=== PATIENT | male | born 1930 | race Caucasian/White ===

== ENCOUNTER → 2016-10-03 12:12 | Outpatient (CLI) | payer MEDICARE, OTHER ==
[2016-06-07 10:33] VITALS: BMI 25.4
[~2016-10-03 12:12] MED LIST: ADVAIR HFA 45/212 GM INH; ALTACE2.5 MG PO; ASPIRIN81 MG PO; ATROVENT 0.02%2.5 ML UPD; DULERA 100 MCG8.8 GM INH; FLUTICASONE PRO16 GM NS; IPRAT-ALBUT 0.5-3 ML UPD; LIPITOR10 MG PO; MEDROL DOSE PACK4 MG PO; MONODOX100 MG PO; PLAVIX75 MG PO; PREDNISONE10 MG PO; PREDNISONE5 MG PO; REFRESH TEARS15 ML EACH EYE; SYNTHROID50 MCG PO; VENTOLIN HFA18 GM INH
== END | disposition home or self-care (01) ==
LOC: D.RAD 12:12
DX: R13.12 Dysphagia, oropharyngeal phase (principal)

== ENCOUNTER 2018-12-03 08:12 | Emergency (ER) | payer MEDICARE, OTHER ==
[~2018-12-03] VITALS: Ht 167.6 cm; Wt 63.6 kg
[2018-12-03 08:16] VITALS: Ht 167.6 cm; Wt 63.6 kg
[2018-12-03 09:03] VITALS: BP 124/68
== END 2018-12-03 09:04 | disposition home or self-care (01) ==
LOC: D.ER 08:12
DX: S51.012A Laceration without foreign body of left elbow, initial encounter (principal); W26.8XXA Contact with other sharp object(s), not elsewhere classified, initial encounter; Y93.89 Activity, other specified; Y92.019 Unspecified place in single-family (private) house as the place of occurrence of the external cause

== ENCOUNTER 2018-12-12 09:43 | Outpatient (CLI) | payer MEDICARE, OTHER ==
[~2018-12-12] VITALS: Ht 167.6 cm; Wt 71.4 kg
--- NOTE | ~2018-12-12 | HEMODYNAMI ---
PATIENT:FRANCISCA GRISSOM III MEDICAL RECORD: [id number] : 28 LOCATION:[facility] ADMISSION DATE: 12/12/18 Generatedon:12/12/201812:51 Patient name: FRANCISCA GRISSOM Patient #: [id number] SSN: : 1930 Date of study: 12/12/2018 Page: Of Hemodynamic Procedure Report Patient Data Patient Demographics Procedure consent was obtained First Name: FRANCISCA Gender: Male Last Name: PRAVEENA Suffix: EMELI [facility] Initial: PENNY : 1930 Patient #: [id number] Age: 88 year(s) Race: Additional ID: [id number] Contact details Address: [address] [place] [address] State: [place] City: [place] Zip code: [address] Past Medical History Allergies: No known allergies Admission Admission Data Admission Date: 12/12/2018 Admission Time: 9:43 Height (in.): 66 BSA: 1.8 (m2) Height (cm.): 167.64 BMI: 25.34 (kg/m2) Weight (lbs.): 157 Weight (kg.): 71.21 Lab Results Lab Result Date: 12/12/2018 Lab Result Time: 0:00 Biochemistry Name Units Result Min Max BUN mg/dl 26 --(----)-* 7 18 Creatinine mg/dl 1.4 --(----)*- 0.6 1.3 CBC Name Units Result Min Max Hemoglobin g/dl 12.9 -*(----)-- 13.5 17.5 Procedure Procedure Types Cath Procedure Diagnostic Procedure C LH w/Coronaries Sedation Charges Moderate Sedation up to 15 minutes PCI Procedure AMI/SVG/CHEMICAL RESEARCH WORKER PTCA or Stent SVG-BMS/PHILIP Initial Procedure Description Procedure Date Procedure Date: 12/12/2018 Procedure Start Time: 12:29 Procedure End Time: 12:47 Procedure Staff Name Function Uvaldo Panchal MD Performing Physician Edna Garner RT Monitor Allen Carey RT Scrub Sirena Olsen RN Nurse Carlos Cervantes RN Hosted Services Analyst Procedure Data Cath Procedure Fluoroscopy Diagnostic fluoroscopy Total fluoroscopy Time: 6.3 time: 6.3 min min Diagnostic fluoroscopy Total fluoroscopy dose: dose: 330.28 mGy 330.28 mGy Contrast Material Contrast Material Type Amount (ml) Isovue 300 126 Entry Location Entry Primary Successful Side Size Upsize Upsize Entry Closure Succes sful Closure Location (Fr) 1 (Fr) 2 (Fr) Remarks Device Remarks Femoral Right 5 Fr 6 Fr Exoseal artery Short Estimated blood loss: 10 ml Diagnostic catheters Device Type Used For End Catheter Placement MULTIPACK Pigtail 5 Fr Procedure catheter MULTIPACK JL 4.0 5Fr Procedure catheter MULTIPACK 3DRC 5Fr Procedure catheter Procedure Complications No complications Procedure Medications Medication Administration Route Dosage 0.9% NaCl I.V. 100 ml/hr Oxygen etCO2 Nasal cannula 2 l/min Lidocaine 2% added to field 20 Heparin Flush Bag added to field 2 bags (1000units/500ml NS) Versed I.V. 2 mg Fentanyl I.V. 25 mcg Fentanyl I.V. 50 mcg Versed I.V. 1 mg Heparin Bolus I.V. 4000 units Hemodynamics Rest BSA: 1.8 (m2) O2 Consumption: Estimated: 191.22 (ml/min) O2 Consumption indexed: Estimated:106.23 (ml/min/m) Heart Rate: 52 (bpm) Snapshots Pre Cath Intra NCS Post Cath Vital Signs Time Heart Resp SPO2 etCO2 NIBP (mmHg) Rhythm Pain Sedation Rate (ipm) (%) (mmHg) Status Level (bpm) 12:18:20 63 17 98 0 166/77(97) NSR 0 (11) 10(A) , No pain 12:22:38 61 15 97 0 148/78(93) NSR 0 (11) 10(A) , No pain 12:27:00 63 12 95 0 131/69(108) NSR 0 (11) 10(A) , No pain 12:31:16 62 13 97 0 144/71(111) NSR 0 (11) 10(A) , No pain 12:36:19 59 11 96 0 136/72(106) NSR 0 (11) 9(A) , No pain 12:40:31 65 12 96 0 122/68(105) NSR 0 (11) 9(A) , No pain 12:44:41 72 12 97 0 136/75(116) NSR 0 (11) 10(A) , No pain Medications Time Medication Route Dose Verified Delivered Reason Notes E ffectiveness by by 12:17:10 0.9% NaCl I.V. 100 Uvaldo Sirena used for ml/hr Ansley Olsen gamma operator 12:17:17 Oxygen etCO2 2 Uvaldo Sirena used for Nasal l/min Ansley Olsen procedure cannula RN 12:17:23 Lidocaine 2% added 20ml Uvaldo Uvaldo for local to vial Ansley Panchal MD anesthetic field 12:17:27 Heparin Flush added 2 Uvaldo Uvaldo used for Bag to bags Ansley Panchal MD procedure (1000units/500ml field NS) 12:26:02 Fentanyl I.V. 50 Uvaldo Sirena for mcg Ansley Olsen sedation RN 12:26:55 Versed I.V. 2 mg Uvaldo Sirena for Ansley Olsen sedation RN 12:31:02 Fentanyl I.V. 25 Uvaldo Sirena for mcg Ansley Olsen sedation RN 12:31:37 Versed I.V. 1 mg Uvaldo Sirena for Ansley Olsen sedation RN 12:36:49 Heparin Bolus I.V. 4000 Uvaldo Sirena for verified units Ansley Olsen sedation with Dr. JERSON Panchal Procedure Log Time Note 11:58:06 Signed procedure consent form obtained from patient. 11:58:07 Diagnostic Cath status Elective 11:58:08 Time tracking: Regular hours (M-F 7:00 - 5:00) 11:58:12 Plan of Care:Hemodynamics will remain stable., Cardiac rhythm will remain stable., Comfort level will be maintained., Respiratory function will remain adequate., Patient/ family verbilizes understanding of procedure., Procedure tolerated without complication., Recovers from procedure without complications.. 11:58:15 Carlos Cervantes RN sent for patient. Start room use. 12:00:48 Patient Height : 66 inches 12:00:50 Patient Weight : 157 lbs 12:00:57 Patient allergic to No known allergies 12:03:06 Lab Result : BUN 26 mg/dl 12:03:06 Lab Result : Hemoglobin 12.9 g/dl 12:03:06 Lab Result : Creatinine 1.4 mg/dl 12:11:17 Patient received from Pre/Post Procedure Room to CCL 3 Alert and oriented. Tansferred to table in Supine position. 12:11:19 Warm blankets applied, and keith hugger turned on for patient comfort. 12:11:19 Correct patient and procedure confirmed by team. 12:11:20 ECG and BP/O2 sat monitors applied to patient. 12:17:00 Vital chart was started 12:17:10 0.9% NaCl 100 ml/hr I.V. was administered by Sirena Olsen RN; used for procedure; 12:17:17 Oxygen 2 l/min etCO2 Nasal cannula was administered by Sirena Olsen RN; used for procedure; 12:17:23 Lidocaine 2% 20ml vial added to field was administered by Uvaldo Panchal MD; for local anesthetic; 12:17:27 Heparin Flush Bag (1000units/500ml NS) 2 bags added to field was administered by Uvaldo Panchal MD; used for procedure; 12:22:48 Baseline sample Acquired. 12:22:52 Rhythm: sinus rhythm 12:22:54 Full Disclosure recording started 12:23:03 H&P Date Dictated: 12/11/2018 Within 30 days and on chart., H&P Addendum completed by physician on day of procedure. (MUST COMPLETE FOR ALL OUTPATIENTS). 12:23:14 Pre-procedure instructions explained to patient. 12:23:15 Pre-op teaching completed and patient verbalized understanding. 12:23:16 Family in patients room. 12:23:17 Patient NPO since Midnight. 12:23:19 Is patient on blood thinner?Yes 12:23:23 ACC The patient was administered the following blood thiners within the last 24 hours: ACCPlavix 12:23:25 Patient diabetic? No. 12:23:29 Previous problem with sedation/anesthesia? No ? 12:23:30 Snore? Yes 12:23:31 Sleep apnea? No 12:23:34 Deviated septum? No 12:23:35 Opens mouth fully? Yes 12:23:36 Sticks out tongue? Yes 12:23:40 Airway obstruction? No ? 12:23:43 Dentures? No ? 12:23:46 Pre procedure: right dorsailis pedis pulse 1+ Palpable, but thready & weak; easily obliterated 12:23:53 Patient pain scale 0/10 ?. 12:23:59 IV patent on arrival in right forearm with 0.9% NaCl at [facility]. 12:24:01 Lab results completed and on chart. 12:24:05 Right groin area was prepped with chlora-prep and draped in sterile fashion 12:24:06 Alarms reviewed by R. N. 12:24:06 Sharps counted by scrub and verified by R.N. 12:24:08 Use device set Femoral Dx 12:24:09 ACIST Syringe (93185) opened to sterile field. 12:24:10 Bag Decanter (2002S) opened to sterile field. 12:24:11 ACIST Hand Control (89335) opened to sterile field. 12:24:11 ACIST Manifold (58011) opened to sterile field. 12:24:12 Tegaderm 4 x 4 (1626W) opened to sterile field. 12:24:14 Medline Cath Pack ([id number]) opened to sterile field. 12:24:15 DIAGNOSTIC WIRE .035 260cm J wire (663473) opened to sterile field. 12:24:16 DIAGNOSTIC Multipack 5Fr catheter set (JJ9510) opened to sterile field. 12:24:17 SHEATH 5FR [place] (HAJ796) opened to sterile field. 12:25:53 --------ALL STOP TIME OUT------ 12::53 Final Timeout: patient, procedure, and site verified with staff and physician. All members of the team are in agreement. 12:25:55 Right groin site verified by team. 12:25:58 Maximum allowable Isovue 300 dose 300ml. Physician notified. (300ml for normal creatinines. For patients with creatinine of 1.7 or higher multiply weight(kg) x 5 divided by creatinine.) 12:26:02 Fentanyl 50 mcg I.V. was administered by Sirena Olsen RN; for sedation; 12:26:02 Fire Safety Assessment: A--An alcohol-based skin anteseptic being used preoperatively., C--Open oxygen or nitrous oxide is being used., D--An ESU, laser, or fiber-optic light is being used. 12:26:04 Physical assessment completed. ASA score P 2 - A patient with mild systemic disease as per Uvaldo Panchal MD. 12::06 Sedation plan: IV Moderate Sedation Medication:Versed, Fentanyl 12::55 Versed 2 mg I.V. was administered by Sirena Olsen RN; for sedation; 12:28:47 Zero performed for pressure channel P1 12::51 Procedure started. 12::03 Local anesthetic to right femoral artery with Lidocaine 2% by Uvaldo Panchal MD.INITIAL ACCESS ONLY 12::39 A 5 Fr sheath was inserted into the Right Femoral artery 12::55 A MULTIPACK Pigtail 5 Fr catheter was advanced over the wire and used for Procedure. 12:30:10 LV gram done using SMYTH 12::13 Injector settings: Ml/sec: 10, Volume: 20, 12::39 EF : 50 % 12:30:42 Catheter removed. 12:31:02 Fentanyl 25 mcg I.V. was administered by Sirena Olsen RN; for sedation; 12::06 A MULTIPACK JL 4.0 5Fr catheter was advanced over the wire and used for Procedure. 12:31:37 Versed 1 mg I.V. was administered by Sirena Olsen RN; for sedation; 12:31:50 LCA angiography performed. 12:32:12 Catheter exchanged over wire. 12:32:15 A MULTIPACK 3DRC 5Fr catheter was advanced over the wire and used for Procedure. 12:33:15 CHOPRA to LAD angiography performed. 12:33:44 RCA angiography performed. 12:34:00 Catheter exchanged over wire. 12:34:51 GUIDE 6FR AR 2.0 SH catheter ([id number]) opened to sterile field. 12:34:51 SHEATH 6FR [place] (NDP891) opened to sterile field. 12:34:52 INFLATOR Merit BasixCompak (EC7575) opened to sterile field. 12:34:52 CHOICE PT Extra Support 182cm wire ([id number]) opened to sterile field. 12:35:10 Sheath upsized to a 6 Fr Short. 12:35:31 6 Fr AR 2 SH guide catheter was inserted over the wire 12:36:49 Heparin Bolus 4000 units I.V. was administered by Sirena Olsen RN; for sedation; verified with Dr. Panchal 12:37:24 SVG to Circ angiography performed. 12:38:38 CHOICE ES 182 wire advanced. 12:38:47 Wire advanced across lesion. 12:40:02 Place stent Inflation Number: 1 A RAZA RX 3.0 x 22 stent ([id number]) was prepped and advanced across the Mid RCA. The stent was deployed at 21 ROXANA for 0:10 (min:sec). 12:40:23 Inflation number: 2 The stent balloon was then re-inflated across the Mid RCA to 21 ROXANA for 0:10 (min:sec). 12:40:25 Stent catheter was removed intact over wire. 12:42:18 Place stent Inflation Number: 1 A RAZA RX 3.5 x 22 stent ([id number]) was prepped and advanced across the Prox RCA. The stent was deployed at 17 ROXANA for 0:10 (min:sec). 12:42:46 Inflation number: 2 The stent balloon was then re-inflated across the Prox RCA to 23 ROXANA for 0:10 (min:sec). 12:42:59 Stent catheter was removed intact over wire. 12:42:59 Wire removed. 12:43:00 Guide catheter removed. 12:43:11 EXOSEAL 6Fr (EX600) opened to sterile field. 12:43:32 Sheath removed intact; hemostasis achieved with Exoseal to the Right Femoral artery. 12:44:07 Procedure ended.(Physican Out) 12:45:41 Fluoroscopy time 06.30 minutes. 12:45:48 Flurop Dose total: 330.28 12:45:48 Fluoroscopy dose: 330.28 mGy 12:45:54 Contrast amount:Isovue 300 126ml. 12:45:57 Post-op/insertion site Right Femoral artery dressed using a 4 x 4 and Tegaderm. 12:46:01 Post-procedure physical assessment completed. ASA score P 2 - A patient with mild systemic disease as per Uvaldo Panchal MD. 12:46:04 Post procedure rhythm: sinus rhythm 12:46:10 Estimated blood loss: 10 ml 12:46:12 Post procedure instruction explained to patient.Patient verbalizes understanding. 12:46:12 Patient needs reinforcement of post procedure teaching. 12:46:39 Procedure type changed to Cath procedure, Diagnostic procedure, LHC, LHC w/Coronaries, Sedation Charges, Moderate Sedation up to 15 minutes, PCI procedure, AMI/SVG/CHEMICAL RESEARCH WORKER PTCA or Stent, SVG-BMS/PHILIP Initial 12:47:39 Procedure and supply charges have been captured, reviewed, submitted and are correct. 12:47:42 Procedure Complication : No complications 12:47:44 Vital chart was stopped 12:47:44 See physician's report for complete and final results. 12:47:48 Report given to Pre/Post Procedure Room. 12:47:51 Patient transfered to Pre/Post Procedure Room with Bed. 12:47:53 Procedure ended. 12:47:53 Full Disclosure recording stopped 12:47:58 End room use (Document Last) Intervention Summary Intervention Notes Time ActionType Lesion and Equipment Used Action# Pressure Duration Attributes 12:40:02 Place stent Mid RCA RAZA RX 3.0 x 1 21 00:10 22 stent ([id number]) 12:40:23 Reinflate Mid RCA RAZA RX 3.0 x 2 21 00:10 stent 22 stent balloon ([id number]) 12:42:18 Place stent Prox RCA RAZA RX 3.5 x 1 17 00:10 22 stent ([id number]) 12:42:46 Reinflate Prox RCA RAZA RX 3.5 x 2 23 00:10 stent 22 stent balloon ([id number]) Device Usage Item Name Manufacture Quantity Catalog Number Hospital Part Current M inimal Lot# / Charge Number Stock Stock Serial# Code ACIST Syringe Acist 1 55279 778186 764088 654344 2 0 (56836) Medical Systems Inc Bag Decanter Microtek 1 2001S 504010 83861 107043 5 (2001S) Medical Inc. ACIST Hand Acist 1 82532 617428 628265 645761 5 Control Medical (84635) Systems Inc ACIST Manifold Acist 1 49471 828518 432982 591462 5 (30583) Medical Systems Inc Tegaderm 4 x 4 3M 1 1626W 846438 251346 496037 5 (1626W) Medline Cath Medline 1 [id number] 800224 62026 280270 5 Pack ([id number]) DIAGNOSTIC St Yoni 1 478411 691124 334564 343177 3 0 WIRE .035 260cm J wire (537513) DIAGNOSTIC Cardinal 1 BL3385 434023 06414 644487 3 0 Multipack 5Fr Health catheter set (BE1723) SHEATH 5FR Terumo 1 YYG116 937087 889239 464485 5 [place] (EWT379) MULTIPACK Cardinal 1 865551 5 Pigtail 5 Fr Health catheter MULTIPACK JL Cardinal 1 433343 5 4.0 5Fr Health catheter MULTIPACK 3DRC Cardinal 1 302214 5 5Fr catheter Health GUIDE 6FR AR Medtronic 1 [id number] 708356 41973 333375 1 2.0 SH catheter ([id number]) SHEATH 6FR Terumo 1 VTD362 064799 326876 848599 4 0 [place] (PCA727) INFLATOR Merit Merit 1 MO2152 171965 049465 017796 1 5 Run My ErrandscoRevver (JW3082) CHOICE PT [place] 1 [id number] 797816 710970 460478 5 Extra Support Scientific 182cm wire ([id number]) RAZA RX 3.0 x Medtronic 1 [id number] 645982 7078432 491022 5 [id number] 22 stent ([id number]) RAZA RX 3.5 x Medtronic 1 [id number] 849351 7596433 432485 5 [id number] 22 stent ([id number]) EXOSEAL 6Fr Cardinal 1 EX600 196270 964242 901216 1 0 (EX600) Health Signature Audit [place] Stage Time Signature Unsigned Intra-Procedure 12/12/2018 Edna Garner 12:51:05 PM RT(R) Signatures Monitor : Edna Garner Signature : RT Date : Time : [facility] [address] [place] [address]
[2018-12-12 10:25] VITALS: BP 102/60; Ht 167.6 cm; Wt 71.4 kg
[2018-12-12 10:59] LABS: BASOPHILS 0.3 % (0-2); EOSINOPHILS 1.1 % (0-7); HEMATOCRIT 39.1 % (42.0-54.0); HEMOGLOBIN 12.9 g/dL (13.5-17.5); IMMATURE GRANULOCYTES 0.4 % (0-5); MCH 31.4 pg (26.0-34.0); MCV 95.1 fL (80.0-100.0); MEAN PLATELET VOLUME 10.2 fL (7.4-10.4); NEUTROPHILS 79.2 % (40-80); PLATELET COUNT 143 10x3/uL (130-400); RBC 4.11 10x6/uL (4.20-6.10)
[2018-12-12 11:07] LABS: ANION GAP 13.3 mmol/L (8-16); CALCIUM 8.7 mg/dL (8.5-10.1); CARBON DIOXIDE 27.5 mmol/L (21.0-32.0); CREATININE - SERUM 1.4 mg/dL (0.6-1.3); POTASSIUM - SERUM 3.8 mmol/L (3.5-5.1)
--- NOTE | 2018-12-12 13:20 | NUR ---
PATIENT AWAKE, AT BEDSIDE. VSS ON 2L NC. RIGHT GROIN DRESSING IS CDI,NO S/S OF BLEEDING OR HEMATOMA. NO C/O PAIN, NUMBNESS, OR TINGLING. PATIENT TOLERATING PO FLUIDS, NO N/V.
--- NOTE | 2018-12-12 13:50 | NUR ---
PATIENT INTERMITTENTLY RESTING. VSS ON 2L NC. RIGHT GROIN DRESSING IS CDI, NO S/S OF BLEEDING OR HEMATOMA. NO C/O PAIN, NUMBNESS, OR TINGLING. NO N/V.
--- NOTE | 2018-12-12 14:20 | NUR ---
PATIENT AWAKE, DRINKING WATER. VSS ON 2L NC. RIGHT GROIN DRESSING IS CDI, NO S/S OF BLEEDING OR HEMATOMA. NO C/O PAIN, NUMBNESS, OR TINGLING. AT BEDSIDE.
--- NOTE | 2018-12-12 14:45 | NUR ---
PATIENT AWAKE, VOIDED WITHOUT DIFFICULTY. VSS ON 1L NC. RIGHT GROIN DRESSING IS CDI, NO S/S OF BLEEDING OR HEMATOMA. PATIENT TOLERATING PO FLUIDS, NO N/V. NO C/O PAIN, NUMBNESS, OR TINGLING.
--- NOTE | 2018-12-12 14:52 | NUR ---
RESUMED CARE OF PATIENT AT THIS TIME.PATIENT DENIED PAIN OR NEEDS VSS AND 6 FR EXOSEAL R/GROIN IS CDI
--- NOTE | 2018-12-12 15:24 | NUR ---
PATIENT RESTING WITH FAMILY AT BEDSIDE. 6 FR EXOSEAL R/GROIN IS CDI
--- NOTE | 2018-12-12 16:08 | NUR ---
REPOSITIONED TO [facility] UP 30 FOR COMFORT. 6 FR EXOSEAL R/GROIN IS CDI WITH NO BLEEDING NOTED. PATIENT DENIED CHEST PAIN WITH VSS,SANDWICH AN SODA TO BEDSIDE
--- NOTE | 2018-12-12 16:23 | NUR ---
VERBAL AND WRITTEN DISCHARGE GONE OVER WITH PATIENT AND . BOTH VERBALIZED UNDERSTANDING.
--- NOTE | 2018-12-12 16:48 | NUR ---
PIV REMOVED WITH DRESSING APPLIED. PATIENT UP TO GET DRESSED FOR DISCHARGE HOME NO DISTRESS
--- NOTE | 2018-12-12 16:52 | NUR ---
PATIENT LEFT VIA WC TO PARKING FOR PRIVATE TRANSPORT HOME CHEST PAIN IS DENIED
--- NOTE | 2018-12-14 15:03 | EC ---
PATIENT:FRANCISCA GRISSOM III DATE OF SERVICE: 12/12/18 SEX: M MEDICAL RECORD: [id number] DATE OF : 28 LOCATION:D.[facility] AGE OF PATIENT: 88 ADMISSION DATE: 12/12/18 REFERRING PHYSICIAN: INTERPRETING PHYSICIAN: YUE PANCHAL MD ECHOCARDIOGRAM REPORT ECHO CHARGES 4 ECHO COMPLETE Date: 12/12/18 CLINICAL DIAGNOSIS: ANGINA/CAD ECHOCARDIOGRAPHIC MEASUREMENTS (adult normal given) AC root (d.<3.7cm) 3.3 cm LV Septum d (<1.2 cm> 1.4 cm Valve Excursion 1.3 cm LV Septum (systole) 1.5 cm Left Atria (s.<4.0cm> 4.0 cm LVPW d(<1.2cm) 1.3 cm RV (d.<2.3cm) 5.3 cm LVPW (sytole) 1.6 cm LV diastole(<5.6CM) 4.9 cm MV E-F(>70mm/sec) cm LV systole 3.6 cm LVOT Diameter 1.8 cm MV exc.(>10mm) 1.4 cm Est.ejection fraction (50-75%) % DOPPLER: LVIT cm/sec A 110 cm/sec E 97.0 cm/sec LA cm/sec RVSP 35 mmHg LVOT 112 cm/sec AOP1/2T 588 m/s Asc. Ao 260 cm/sec RVOT 57 cm/sec RA cm/sec PA 212 cm/sec AV Gradient Peak 27.12mmHg AV Mean 17.13mmHg AV Area 1.1 cm MV Gradient Peak 5.36 mmHg MV Mean 1.95 mmHg MV Area cm COMMENTS: Manager Strategic Sourcing: Katie PETERSON Solder Making Laborer: 1 Dr. Panchal TAPE# PACS Pericardial Effusion N DATE OF SERVICE: 12/12/2018 ECHOCARDIOGRAM DATE OF SERVICE: 12/12/2018 FINDINGS: 1. Left ventricular chamber size is within normal limits. Left ventricular systolic function is normal. Overall ejection fraction estimated at 55%. 2. Left atrium is upper limits of normal at 4.0 cm. Right atrium and right ECHOCARDIOGRAM REPORT [id number] FRANCISCA GRISSOM III ventricle chamber sizes are moderately dilated. 3. Valvular structures: Aortic valve demonstrates moderate calcific aortic stenosis, valve area calculates 1.1 cm-squared and has a gradient of 27-mm across the valve. The remaining valvular structures have normal structure and motion. 4. Doppler interrogation elsewise reveals occz-pp-alufawtx aortic insufficiency, lhrr-tt-nbxsyxcd mitral regurgitation, mild tricuspid regurgitation, no other valvular insufficiency or stenosis. Pulmonary systolic pressure is estimated at 35 mmHg. 5. No evidence of pericardial effusion or left ventricular thrombus. TRANSINT:[id number] Voice Confirmation ID: [id number] DOCUMENT ID: [id number] YUE PANCHAL MD at 1503 CC: [id number] DICTATION DATE: 12/12/18 1551 BETTING AGENCY COUNTER CLERK: 12/12/18 2302 DEP CLI 12/12/18 [facility] [address] [place] [address]
--- NOTE | 2018-12-14 15:03 | OP ---
PATIENT NAME: FRANCISCA GRISSOM III MEDICAL RECORD: [id number] :28 LOCATION:D.CAT ADMISSION DATE: SURGEON: YUE HORNE MD DATE OF OPERATION: 12/12/2018 PROCEDURES: 1. PTCA stent RCA. 2. Left heart catheterization. 3. Selective coronary angiography. 4. Vein graft angiography. 5. CHOPRA angiography. PROCEDURE IN DETAIL: After informed consent was obtained and after a detailed description of risks, benefits as well as alternative therapies, the patient elected to proceed with angiogram and angioplasty. The right femoral area was prepped and draped in normal sterile fashion. Right femoral artery was cannulated via modified Seldinger technique with placement of 6-Bruneian sheath. All catheters exchanged through this sheath. FINDINGS: The left ventriculogram was performed in standard 30-degree SMYTH view, reveals good cardiac wall motion throughout all segments. Overall ejection fraction estimated 60%. SELECTIVE CORONARY ANGIOGRAPHY: 1. Left main is with no significant angiographic disease. 2. 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 3. 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 4. Ramus intermedius is widely patent and previously placed stent is widely patent. 5. CHOPRA to the LAD is widely patent. Distal LAD is widely patent. 6. The vein graft to the left circumflex is widely patent. Distal circumflex is widely patent. 8. The right coronary artery has previously placed stent proximally. This is patent; however, there is 85% stenosis after this and a new 85% stenosis in the mid vessel as well. PTCA STENT OF THE RCA: Stents used were 3.0 x 22 and 3.5 x 22 both Fede stents. Result was 0% residual stenosis. OVERALL IMPRESSION: Successful percutaneous transluminal coronary angioplasty stent of the right coronary artery going from 85% initial stenosis to 0% residual. TRANSINT:[id number] Voice Confirmation ID: [id number] DOCUMENT ID: [id number] YUE HORNE MD at 1503 CC: [id number] DICTATION DATE: 12/12/18 1248 SUPERINTENDENT TERMINAL: 12/12/18 1402 DEP CLI 12/12/18 [place] [address]
== END 2018-12-12 16:54 ==
LOC: D.CATH 09:43
PROVIDERS: ATTEND Internal Medicine Interventional Cardiology
DX: I25.119 Atherosclerotic heart disease of native coronary artery with unspecified angina pectoris (principal); Z95.1 Presence of aortocoronary bypass graft; Z01.812 Encounter for preprocedural laboratory examination
CPT/HCPCS: 93459; C9600

== ENCOUNTER 2019-02-18 01:15 | Emergency (ER) | payer MEDICARE, OTHER ==
[~2019-02-18] VITALS: Ht 167.6 cm; Wt 68.2 kg
[2019-02-18 01:18] VITALS: Ht 167.6 cm; Wt 68.2 kg
[2019-02-18 01:54] LABS: BASOPHILS 0.3 % (0-2); HEMATOCRIT 27.5 % (42.0-54.0); HEMOGLOBIN 9.2 g/dL (13.5-17.5); IMMATURE GRANULOCYTES 0.4 % (0-5); LYMPHOCYTES 10.6 % (15-50); MCH 31.1 pg (26.0-34.0); MCHC 33.5 g/dL (31.0-37.0); MCV 92.9 fL (80.0-100.0); MEAN PLATELET VOLUME 9.2 fL (7.4-10.4); MONOCYTES 9.3 % (2-11); NEUTROPHILS 75.4 % (40-80); PLATELET COUNT 161 10x3/uL (130-400); RBC 2.96 10x6/uL (4.20-6.10); RDW 14.8 % (11.5-14.5); WBC 9.8 10x3/uL (4.8-10.8)
[2019-02-18 02:05] LABS: APTT 25.7 SECONDS (22.8-39.4); INR 1.27 (0.85-1.17); PROTIME 15.3 SECONDS (11.6-15.0)
[2019-02-18 02:09] LABS: ANION GAP 11.2 mmol/L (8-16); BILIRUBIN - TOTAL 0.27 mg/dL (0.2-1.3); CALCIUM 8.2 mg/dL (8.5-10.1); CARBON DIOXIDE 27.2 mmol/L (21.0-32.0); CREATININE - SERUM 1.1 mg/dL (0.6-1.3); POTASSIUM - SERUM 4.4 mmol/L (3.5-5.1); PROTEIN - SERUM 6.1 g/dL (6.4-8.2)
[2019-02-18 04:05] VITALS: BP 128/55
== END 2019-02-18 04:07 | disposition other institution (70) ==
LOC: D.ER 01:15
PROVIDERS: Family Medicine
DX: K92.2 Gastrointestinal hemorrhage, unspecified (principal); D64.9 Anemia, unspecified; I25.10 Atherosclerotic heart disease of native coronary artery without angina pectoris

== ENCOUNTER 2019-03-06 06:48 | Day surgery (SDC) | payer MEDICARE, OTHER ==
[~2019-03-06] VITALS: Ht 167.6 cm; Wt 68.0 kg
[~2019-03-06 06:48] MED LIST changes: +ATROVENT HFA12.9 GM; +IPRATROPIUM NASAL; +OCCUVITE VITAMIN PO
[2019-03-06 07:23] LABS: EOSINOPHILS 5.2 % (0-7); HEMATOCRIT 31.2 % (42.0-54.0); HEMOGLOBIN 10.4 g/dL (13.5-17.5); IMMATURE GRANULOCYTES 0.2 % (0-5); LYMPHOCYTES 16.7 % (15-50); MCH 30.3 pg (26.0-34.0); MCHC 33.3 g/dL (31.0-37.0); MEAN PLATELET VOLUME 9.2 fL (7.4-10.4); NEUTROPHILS 64.9 % (40-80); RBC 3.43 10x6/uL (4.20-6.10); RDW 14.8 % (11.5-14.5); WBC 5.9 10x3/uL (4.8-10.8)
[2019-03-06 07:25] LABS: PLATELET COUNT 231 10x3/uL (130-400)
[2019-03-06 07:31] LABS: ANION GAP 12.1 mmol/L (8-16); CARBON DIOXIDE 25.8 mmol/L (21.0-32.0); CREATININE - SERUM 1.2 mg/dL (0.6-1.3); POTASSIUM - SERUM 3.9 mmol/L (3.5-5.1)
[2019-03-06 08:58] VITALS: BP 135/59; Ht 167.6 cm; Wt 68.0 kg
--- NOTE | 2019-03-06 12:41 | NUR ---
ASKED PT IF HE IS HAVING ANY PAIN. HE VOICES"NO NOT RIGT NOW". WILL CONTINUE TO MONTIOR PAIN
--- NOTE | 2019-03-06 13:12 | NUR ---
BENJI EYE BRUSED UPPER AND LOWER LID. SKIN INTACT BUT REDDISH IN COLOR TO SKIN
--- NOTE | 2019-03-08 15:14 | OP ---
PATIENT NAME: FRANCISCA GRISSOM [facility] MEDICAL RECORD: [id number] :29 LOCATION:[facility] ADMISSION DATE: SURGEON: DARRYN JOHN MD DATE OF OPERATION: 03/06/2019 PREOPERATIVE DIAGNOSES: 1. Perianal mass. 2. Intractably symptomatic hemorrhoidal problems. POSTOPERATIVE DIAGNOSES: 1. Perianal mass. 2. Intractably symptomatic hemorrhoidal problems. PROCEDURE: 1. Excisional biopsy of perianal mass. Dimensions of the excision, including margins, measured 1.9 x 1.6 cm included mass, skin as well as underlying subcutaneous tissue. This was a simple closure. 2. Ligation of internal hemorrhoidal bundles times 5. SURGEON: Darryn John MD MARINE PIPE WELDER: None. BLOOD LOSS: Minimal. ANESTHESIA: General. COMPLICATIONS: None. The risks, possible complications and alternatives to the procedure were explained to the patient. He elects to proceed. The discussion specifically included, but was not limited to, bleeding requiring emergency reoperation, infection, possible need for additional hemorrhoidal procedure, the possibility of bleeding. This procedure was performed while the patient was fully anticoagulated on Plavix. We could not stop the Plavix due to history of TIAs. Therefore, we did not do a more extensive hemorrhoidal procedure as he would have had significant bleeding. OPERATIVE COURSE: The patient was conveyed to the operating room electively on 03/06/2019. General anesthesia was induced by the anesthesia staff. The patient was placed in the lithotomy position. The buttocks and anus and the perianal areas were sterilely prepped and draped. I grasped the perianal mass, which was about 5 cm from the anal verge. I was able to excise it with the Harmonic scalpel. The dimensions of the defect are listed above. It was closed with a single horizontal mattress 3-0 Vicryl suture. Well lubricated U-shaped anal retractors were placed within the anus. I noted no evidence of an anal fissure. No evidence of an anal fistula. I noted some enlarged hemorrhoidal bundles. These were suture ligated with 3-0 Vicryl sutures. There was no bleeding. Gelfoam was applied within the anus and OPERATIVE REPORT [id number] FRANCISCA GRISSOM [facility] lower rectum. A combination of steroid preparation and Marcaine were used to infiltrate the perianal tissues. A topical anesthetic cream was applied to the external hemorrhoids. The patient was then extubated and conveyed to the post-anesthesia care unit where he was in stable condition. He can continue on his Plavix. I will see him in the office in 2-3 weeks. TRANSINT:[id number] Voice Confirmation ID: [id number] DOCUMENT ID: [id number] DARRYN JOHN MD at 1514 CC: DES KILLIAN [id number] DICTATION DATE: 03/07/19 1058 CAR ESCORT: 03/07/19 1113 [facility] 03/06/19 [facility] [address] [place] [address]
== END 2019-03-06 17:05 | disposition home or self-care (01) ==
LOC: D.OPS 06:48 → D.PAN 09:30 → D.OPS 09:30 → D.PAN 09:45 → D.OPS 17:05
PROVIDERS: Anesthesiology; ATTEND Surgery
DX: L57.0 Actinic keratosis (principal); K64.8 Other hemorrhoids; Z01.812 Encounter for preprocedural laboratory examination

== ENCOUNTER → 2019-03-13 13:58 | Outpatient (CLI) | payer MEDICARE, OTHER ==
[2019-03-06 08:58] VITALS: BMI 24.2
== END | disposition home or self-care (01) ==
LOC: D.CT 13:58
PROVIDERS: ATTEND Family Medicine
DX: R91.1 Solitary pulmonary nodule (principal)

== ENCOUNTER 2019-03-26 22:54 | Inpatient (IN) | payer MEDICARE, OTHER ==
[~2019-03-26] VITALS: Ht 167.6 cm; Wt 67.0 kg
[~2019-03-26 22:54] MED LIST changes: -OCCUVITE VITAMIN PO; +[UNRECOGNIZED DRUG - OTHER]
[2019-03-26] MEDS ORDERED: K-DUR20 MEQ PO (23:05)
[2019-03-26] MEDS ORDERED: FUROSEMIDE20 MG PO (23:05)
--- NOTE | 2019-03-26 23:20 | NUR ---
PT CHANGED INTO HOSPITAL GOWN, WARM BLANKET X2 PROVIDED FOR PT COMFORT. PT DENIES FURTHER NEEDS AT THIS TIME. RESPIRATIONS EVEN AND UNLABORED, 18/MIN. PT WILL CONTINUE TO MONITOR.
[2019-03-27 00:41] LABS: BASOPHILS 0.4 % (0-2); HEMATOCRIT 29.2 % (42.0-54.0); HEMOGLOBIN 9.4 g/dL (13.5-17.5); IMMATURE GRANULOCYTES 0.2 % (0-5); LYMPHOCYTES 15.7 % (15-50); MCH 29.8 pg (26.0-34.0); MCHC 32.2 g/dL (31.0-37.0); MCV 92.7 fL (80.0-100.0); MEAN PLATELET VOLUME 9.5 fL (7.4-10.4); MONOCYTES 7.9 % (2-11); NEUTROPHILS 69.8 % (40-80); PLATELET COUNT 251 10x3/uL (130-400); RBC 3.15 10x6/uL (4.20-6.10); RDW 14.7 % (11.5-14.5); WBC 5.2 10x3/uL (4.8-10.8)
--- NOTE | 2019-03-27 00:45 | NUR ---
ATTEMPTED TO COLLECT URINE SAMPLE. PT SAT UP OM
[2019-03-27 00:54] LABS: ALBUMIN 2.9 g/dL (3.4-5.0); ALKALINE PHOSPHATASE 72 U/L (46-116); ALT (SGPT) 16 U/L (10-68); BILIRUBIN - TOTAL 0.28 mg/dL (0.2-1.3); CALC OSMOLALITY 290 mosm/kg (275-300); CALCIUM 8.4 mg/dL (8.5-10.1); CARBON DIOXIDE 28.5 mmol/L (21.0-32.0); CHLORIDE - SERUM 106 mmol/L (98-107); CREATININE - SERUM 2.1 mg/dL (0.6-1.3); GLUCOSE 106 mg/dL (74-106); POTASSIUM - SERUM 3.7 mmol/L (3.5-5.1); PROTEIN - SERUM 6.4 g/dL (6.4-8.2); SODIUM 142 mmol/L (136-145); UREA NITROGEN 36 mg/dL (7-18); eGFR NON AFRICAN AMERICAN 32 mL/min (90-120)
[2019-03-27 01:03] LABS: CKMB 0.9 U/L (0.0-3.6); CREATINE KINASE 83 UL (21-232); PRO BNP 2531 pg/mL (0-450); TROPONIN-I < 0.017 ng/mL (0.000-0.060)
--- NOTE | 2019-03-27 01:17 | NUR ---
HAND OFF REPORT GIVEN TO JERSON MONCADA.
[2019-03-27 04:00] VITALS: BP 181/76
[2019-03-27] MEDS ORDERED: PREDNISONE2.5 MG PO (07:05)
[2019-03-27] MEDS ORDERED: COMBIVENT RESPIM4 GM INH (07:06)
[2019-03-27] MEDS ORDERED: COLACE100 MG PO (07:07)
[2019-03-27] MEDS ORDERED: MIRALAX17 GM PO (07:07)
[2019-03-27] MEDS ORDERED: KLOR-CON 1010 MEQ PO (07:07)
[2019-03-27 07:18] LABS: BASOPHILS 0.3 % (0-2); EOSINOPHILS 7.2 % (0-7); HEMATOCRIT 29.8 % (42.0-54.0); HEMOGLOBIN 9.6 g/dL (13.5-17.5); IMMATURE GRANULOCYTES 0.2 % (0-5); LYMPHOCYTES 17.4 % (15-50); MCH 29.8 pg (26.0-34.0); MCHC 32.2 g/dL (31.0-37.0); MCV 92.5 fL (80.0-100.0); MEAN PLATELET VOLUME 9.3 fL (7.4-10.4); MONOCYTES 9.4 % (2-11); NEUTROPHILS 65.5 % (40-80); PLATELET COUNT 253 10x3/uL (130-400); RBC 3.22 10x6/uL (4.20-6.10); RDW 14.6 % (11.5-14.5); WBC 5.9 10x3/uL (4.8-10.8)
[2019-03-27 07:37] LABS: ALBUMIN 3.2 g/dL (3.4-5.0); ANION GAP 10.9 mmol/L (8-16); BILIRUBIN - TOTAL 0.32 mg/dL (0.2-1.3); CALCIUM 8.8 mg/dL (8.5-10.1); CARBON DIOXIDE 29.4 mmol/L (21.0-32.0); CREATININE - SERUM 2.2 mg/dL (0.6-1.3); MAGNESIUM - SERUM 2.4 mg/dL (1.8-2.4); POTASSIUM - SERUM 3.3 mmol/L (3.5-5.1); PROTEIN - SERUM 6.9 g/dL (6.4-8.2)
[2019-03-27 09:15] VITALS: BP 174/78
[2019-03-27 11:48] LABS: APPEARANCE CLEAR (CLEAR); BILIRUBIN NEGATIVE (NEGATIVE); COLOR STRAW (YELLOW); GLUCOSE NEGATIVE (NEGATIVE); KETONE NEGATIVE (NEGATIVE); NITRITE NEGATIVE (NEGATIVE); PROTEIN NEGATIVE (NEGATIVE); SPECIFIC GRAVITY 1.005 (1.005-1.020); UROBILINOGEN NORMAL (NORMAL)
[2019-03-27 12:16] VITALS: BP 182/71
[2019-03-27 13:43] VITALS: BMI 24.8
[2019-03-27 14:21] VITALS: BP 121/68; Ht 167.6 cm; Wt 67.0 kg
[2019-03-27 17:37] VITALS: BP 162/51
--- NOTE | 2019-03-27 18:00 | NUR ---
SPOKE WITH DR SANON CONCERNING OVER 1 LITER OF URINE POST VOID WHILE DOING ULTRASOUND OF KIDNEYS, ORDER TO INSERT F/C. 16FR F/C INSERTED USING LIFE CARE PLANNER. WITH SOME DIFFICULTY NOTED BUT LOWERED THE HEAD OF BED MORE FLAT AND AFTER HE RELAXED I WAS ABLE TO ADVANCE IT AND GOT CLEAR YELLOW URINE OUT. IMMEDIATE DRAINAGE OF 600CC SO IT WAS CLAMPED TO HELP PREVENT BLADDER SPASMS AND THIS WAS PASSED ON TO THE NEXT SHIFT. HE DID AGREE TO PROCEDURE AND IT WAS EXPLAINED IN DETAIL PRIOR TO INSERTION
--- NOTE | 2019-03-27 19:00 | NUR ---
UNCLAMPED F/C AND 400CC CAME OUT QUICKLY SO IT WAS CLAMPED BACK OFF AND ONCOMING SHIFT IS AWARE
--- NOTE | 2019-03-27 19:52 | NUR ---
ROUNDS COMPLETED. VSS, AAOX3, NO S/S OF RESP DISTRESS. LAFLEUR INTACT/CLAMPED. ASSIST PT TO BATHROOM PT HAD X1 WELL FORMED BM. SWELLING TO BILAT LOWER EXTREMITIES. PT DENIES ANY FURTHER NEED FOR COMFORT CARE. WILL CTM. CL WITHIN REACH, BED IN LOW, SR UP X2. SPOUSE @ BEDSIDE.
[2019-03-27 20:00] VITALS: BP 177/73
--- NOTE | 2019-03-27 22:33 | NUR ---
UNCLAMPPED PT'S LAFLEUR. PT PUT OUT 200CC'S. LAFLEUR CLAMPED BACK ON. WILL CTM.
[2019-03-28] VITALS: BP 173/78
[2019-03-28 04:00] VITALS: BP 168/74
--- NOTE | 2019-03-28 07:00 | NUR ---
REPORT RECEIVED. ALERT IN BED. STATES HE SLEPT WELL LAST NIGHT. RESP EVEN WITHOUT LABOR. HE HAS SOME DARK BLOODY URINE NOTED FROM F/C. IT WAS REPORTED HE WAS GETTING UP SEVERAL TIMES DURING THE NIGHT ON HIS OWN TO GO TO THE BATHROOM. STATLOCK INTACT. EDEMA 2 PLUS REMAINS IN FEET. RIGHT ARM WITH SALINE LOCK INTACT. CL IN REACH AND HE STATES HE WILL CALL FOR HELP
[2019-03-28 08:03] VITALS: BP 124/79
--- NOTE | 2019-03-28 08:15 | NUR ---
HELPED HIM TO WAKE UP, SIT ON SIDE OF BED TO EAT BREAKFAST. FEEDING SELF AT THIS TIME
--- NOTE | 2019-03-28 09:06 | HP ---
PATIENT: FRANCISCA GRISSOM III MEDICAL RECORD: [id number] ACCOUNT: [id number] [facility] : [facility] ADMISSION DATE: 03/27/19 PCP: DES KILLIAN MD HISTORY AND PHYSICAL EXAMINATION DATE OF ADMISSION: 03/27/2019. CHIEF COMPLAINT: Bilateral leg edema and acute kidney injury. HISTORY OF PRESENT ILLNESS: This is an 88-year-old white male who is a patient of Dr. Killian's. On 03/06/2019, he underwent excisional biopsy of a perianal mass by Dr. Kohler. He also had ligation of internal hemorrhoid bundles times 5. This was done as an outpatient. He was sent home. The story that I got from his was that ever since then, he has had worsening swelling in his lower extremities. Further questioning though shows that he has had chronic lower extremity edema for much longer than that, but it really got worse after the procedure. When the patient's called me I was certainly worried about a DVT since she said that the right leg was significantly larger than the left after procedure. The patient came to the ER where he was found to be anemic, which I believe is chronic. His basic metabolic panel was okay except BUN was 35 and creatinine was 2.2 and previous creatinine from 03/06/2019 was 1.2 and on 02/18/2019 was 1.1. Liver functions were normal. D-dimer was elevated at 3.57. ProBNP was 2531. He was admitted for further evaluation of his acute kidney injury, acute renal failure, and lower extremity edema. PAST MEDICAL HISTORY: Coronary artery disease, BPH, asthma, hypertension, peripheral artery disease, TIAs, and anemia. PAST SURGICAL HISTORY: He had biceps tendon repair. He had a right carotid endarterectomy in 2002. He has had coronary artery bypass graft on 03/06/2019. He had excisional biopsy of a perianal mass and ligation of internal hemorrhoid bundles times [address] Kohler. DRUG ALLERGIES: None. HOME MEDICATIONS: Albuterol inhaler p.r.n., Combivent Respimat p.r.n., Plavix 75 mg once a day, Altace 2.5 mg once a day, aspirin 81 mg once a day, Refresh tears daily, Colace twice a day, MiraLax as needed, levothyroxine 50 mcg once a day, prednisone 2.5 mg once a day, and Ocuvite vitamins. Since the procedure on 03/06/2019 and the history of swelling, Lasix 20 mg to take once a day and potassium 10 mEq to take once a day were called out. SOCIAL HISTORY: He is retired. He is and now remarried. FAMILY HISTORY: Father at 86 of heart disease. Mother at 60 of a stroke. REVIEW OF SYSTEMS: GENERAL: No major weight changes except with the increased swelling in his lower extremities. HEENT: No particular sinus or allergy problems. RESPIRATORY: He has had some sort of reactive airway disease and uses albuterol on an as needed basis. CARDIAC: Has history of coronary artery disease and has had a CABG. GASTROINTESTINAL: He has had hemorrhoids. No diagnosis of reflux or heartburn. HISTORY AND PHYSICAL [id number] FRANCISCA GRISSOM III GENITOURINARY: He has had BPH in the past. MUSCULOSKELETAL: No significant arthritic aches and pains. NEUROLOGIC: No migraines, no seizures. PSYCHIATRIC: No depression or melancholia. PHYSICAL EXAMINATION: VITAL SIGNS: Today, temperature 98.2, pulse 69, respirations 17, blood pressure 174/78, pulse ox 98%. GENERAL: He is awake and alert. He does not appear in acute distress. at the bedside. SKIN: Warm and dry. HEENT: Unremarkable. NECK: Supple. No JVD or bruit. HEART: Regular rate and rhythm without murmur. LUNGS: Clear. ABDOMEN: Soft, flat, nontender. EXTREMITIES: He has a 3-4+ pitting edema in both lower extremities, a little worse on the right. NEUROLOGIC: He is grossly intact. LABORATORY DATA AND X-RAY: CBC with a white count of 5900, hemoglobin 9.6, hematocrit 29.8. Basic metabolic panel is okay except BUN 35, creatinine 2.2. D-dimer elevated at 3.57. Liver functions are normal. Urinalysis was obtained and that was normal. ProBNP 2531. Ultrasound of both lower extremities is negative for DVT. ASSESSMENT: 1. Acute renal failure with previous baseline of 1.1 to 1.2 creatinine. 2. Worsening lower extremity edema. PLAN: Nephrology has been consulted. Lasix is being held for now. Other tests or procedures as warranted. TRANSINT:[id number] Voice Confirmation ID: [id number] DOCUMENT ID: [id number] ANDRESSA MILLS MD at 0906 CC: [id number] DICTATION DATE: 03/28/[address] JUDGE: 03/28/19 0058 ADM IN [facility] [address] [place] [id number]
[2019-03-28 12:06] VITALS: BP 185/76
[2019-03-28 16:58] LABS: ANION GAP 11.5 mmol/L (8-16); CALCIUM 7.8 mg/dL (8.5-10.1); CARBON DIOXIDE 26.8 mmol/L (21.0-32.0); CREATININE - SERUM 1.9 mg/dL (0.6-1.3); POTASSIUM - SERUM 3.3 mmol/L (3.5-5.1)
--- NOTE | 2019-03-28 17:30 | NUR ---
HAS BEEN AT BEDSIDE MOST OF DAY. HE CONTINES TO HAVE BLOODY DRAINAGE FROM HIS F/C DARK IN COLOR. RESP EVEN WITHOUT LABOR. DENIES ANY CURRENT NEEDS
[2019-03-28 19:13] VITALS: BP 160/72
--- NOTE | 2019-03-28 19:48 | NUR ---
EVENING ROUNDS WERE MADE. PATIENT RESTING WITH EYES CLOSED, BREATHING EVEN AND UNLABORED. AT BEDSIDE. LAFLEUR DRAINING BY GRAVITY, STAT LOCK IN PLACE, DARK RED URINE NOTED. PATIENT HAS IV TO R FA SL, NOHEMY C/D/I. NO FURTHER CONCERNS AT THIS TIME. FALL PRECAUTIONS IN PLACE. CL IN REACH. WILL CTM.
[2019-03-28 20:00] VITALS: BP 184/89
--- NOTE | 2019-03-28 21:30 | NUR ---
PT C/O NAUSEA AND VOMITTING. ZOFRAN ORDERED PER DR. SNYDER AND GIVEN TO IV IN L FA. NO FURTHER CONCERNS AT THIS TIME. PT LAYING IN BED RESTING. AT BEDSIDE. FALL PRECAUTIONS IN PLACE. WILL CTM.
[2019-03-29] VITALS: BP 112/57
--- NOTE | 2019-03-29 01:21 | NUR ---
PT 02 SAT 80-90%, APPLIED O2 2L VIA NC. PT O2 NOW 94%. PT RESTING COMFORTABLY. WILL CTM.
--- NOTE | 2019-03-29 03:25 | NUR ---
I have reviewed this patient and I concur with the Shift Assessment completed by the Licensed Practical Nurse today this shift.
[2019-03-29 04:00] VITALS: BP 140/70
[2019-03-29 06:40] LABS: ALBUMIN 2.4 g/dL (3.4-5.0); ANION GAP 11.2 mmol/L (8-16); BILIRUBIN - TOTAL 0.35 mg/dL (0.2-1.3); CALCIUM 8.1 mg/dL (8.5-10.1); CARBON DIOXIDE 26.1 mmol/L (21.0-32.0); CREATININE - SERUM 1.8 mg/dL (0.6-1.3); POTASSIUM - SERUM 3.3 mmol/L (3.5-5.1); PROTEIN - SERUM 5.5 g/dL (6.4-8.2)
--- NOTE | 2019-03-29 07:10 | NUR ---
RESTING WITH EASE. RESP EVEN WITHOUT LABOR, AT BEDSIDE STATED HE HAD SOME CONFUSION LAST NIGHT ON AND OFF, MORE THAN HIS MILD FORGETFULNESS AT HOME. F/C WTIH DARK BLOODY URINE IN BAG BUT IN LINE THERE IS MORE YELLOW COLOR NOTED. BED ALARM TURNED OFF PER HER REQUEST BECAUSE SHE WILL BE HERE WITH HIM ALL DAY TODAY. HE REFUSES SCD'S DUE TO GETTING UP TO GO TO THE BATHROOM ON AND OFF.
[2019-03-29 08:05] VITALS: BP 122/47
--- NOTE | 2019-03-29 10:30 | NUR ---
HE HAS BEEN ASLEEP THIS AM BUT HAS NOW WOKE UP AND IS LESS CONFUSED. HIS IS AT BEDSIDE. HE HAS LESS EDEMA IN FEET AND LEGS. HE IS MUCH WEAKER THAN YESTERDAY. F/C REMAINS WITH SOME BLOODY DRAINAGE NOTED
--- NOTE | 2019-03-29 11:17 | NUR ---
REFUSED SCD'S PER RADHA/MANNY
[2019-03-29 12:26] VITALS: BP 109/56
[2019-03-29 16:25] VITALS: BP 118/59
--- NOTE | 2019-03-29 17:45 | NUR ---
HE REFUSED TO EAT HIS SUPPER TODAY. STATED HE NEEDS TO HAVE A BM. IT TOOK 2 PEOPLE TO TAKE HIM TO THE BATHROOM. HE DID HAVE A SOFT LARGE BM BUT SIT ON TOILET LEANED OVER. HE IS ALERT BUT WEAKNESS NOTED
--- NOTE | 2019-03-29 19:28 | NUR ---
GREETED PATIENT AND INTRODUCED MYSELF. PATIENT IS LAYING IN BED SUPINE POSITION. HOB AT 20 DEGREES. O2 AT 2L IN USE VIA NC. STATES THAT HIS FEET ARE HURTING BUT CANT RATE. RESPIRATIONS EVEN. NO S/S OF DISTRESS. FAMILY MEMBER AT BEDSIDE. PT. DENIES ANY NEEDS AT THIS TIME. CALL LIGHT IN REACH.
[2019-03-29 20:00] VITALS: BP 108/53
--- NOTE | 2019-03-29 20:40 | NUR ---
PAGED DR. GIRALDO OFFICE FOR INSTRUCTIONS TO TREAT PATIENTS TEMPERATURE OF 100.3. WAITING FOR CALLBACK
[2019-03-30] VITALS: BP 109/56
--- NOTE | 2019-03-30 02:25 | NUR ---
PATIENT RESTING QUIETLY WITH EYES CLOSED. RESPIRATIONS EVEN. NO S/S OF DISTRESS. SR UP X 2. BED IN LOWEST POSITION. CALL LIGHT IN REACH.
[2019-03-30 04:00] VITALS: BP 101/48
[2019-03-30 06:34] LABS: ANION GAP 12.1 mmol/L (8-16); CALCIUM 7.7 mg/dL (8.5-10.1); CARBON DIOXIDE 25.9 mmol/L (21.0-32.0); CREATININE - SERUM 1.5 mg/dL (0.6-1.3)
[2019-03-30 08:00] VITALS: BP 96/42
--- NOTE | 2019-03-30 08:37 | NUR ---
PT AWAKE AND ALERT. ASSISTED TO COMMODE FOR BOWEL MOVEMENT. CATHETER INTACT AND DRAINING. AT BEDSIDE, REQUESTS A BATH TODAY. NO COMPLAINTS/CONCERNS OR QUESTIONS AT THIS TIME. CL IN REACH, SRX2.
--- NOTE | 2019-03-30 08:59 | NUR ---
PT TOOK OUT HIS I.V, PT FOUND IT IN THE BED. WILL RESITE
--- NOTE | 2019-03-30 14:23 | NUR ---
I have reviewed this patient and I concur with the Shift Assessment completed by the Licensed Practical Nurse today this shift.
[2019-03-30 16:45] VITALS: BP 89/41
--- NOTE | 2019-03-30 18:36 | NUR ---
PT IS AWAKE AND ORIENTEDX2. AT BEDSIDE. ASSISTED PT ([id number]) TO BATHROOM AND BACK. CHANGED LINNENS. NO COMPLAINTS/CONCERNS/QUESTIONS ATT HIS TIME. CL IN REACH, SRX2. BED ALARM ON
[2019-03-30 20:00] VITALS: BP 95/45
--- NOTE | 2019-03-30 20:03 | NUR ---
REPORT RECIEVED AND ROUNDING COMPLETE. PATIENT LAYING IN BED WATCHING TV WITH HIS . REQUESTED ME TO EMPTY HIS LAFLEUR BAG, SHE STATED NO ONE HAS DONE IT ALL DAY. 300ML OF PINK URINE EMPTIED. TURNED PATIENTS BED ALARM ON. EDWAR HAS A RIGHT FOREARM THAT IS SALINE LOCKED, DRESSING C/D/I AND SWAP CAP IN PLACE. CALL LIGHT WITHIN REACH AND BED IN LOWEST POSITION. NO OTHER NEEDS AT THIS TIME. PATIENT IS SHOWING NO S/SX OF DISTRESS AT THIS TIME.
[2019-03-31] VITALS (16 sets, daily range): BP systolic 99–137; BP diastolic 42–66
--- NOTE | 2019-03-31 02:35 | NUR ---
PATIENT LAYING IN BED IN SUPINE POSITION, EYES OPEN, BREATHING EVEN AND UNLABORED, BED ALARM ON. PATIENT STATES NO NEEDS AT THIS TIME. CALL LIGHT WITHIN REACH AND BED IN LOWEST POSTION.
--- NOTE | 2019-03-31 03:40 | NUR ---
I have reviewed this patient and I concur with the Shift Assessment completed by the Licensed Practical Nurse today this shift.
--- NOTE | 2019-03-31 07:00 | NUR ---
RECEIVED REPORT. ASSUMED CARE OF PATIENT. CALL LIGHT WITHIN REACH. PATIENT AWAKE, ALERT, AND CONFUSED. PATIENT THINKS HE IS LOCKED AWAY IN A TRASH ROOM. PATIENTS IS AT BEDSIDE AT THIS TIME SHE JUST ARRIVED. RESP EVEN AND UNLABORED. NO DISTRESS.
--- NOTE | 2019-03-31 07:59 | NUR ---
ASSISTED PATIENT OOB TO RESTROOM AT THIS TIME AND BACK TO BED.
[2019-03-31 08:00] LABS: ANION GAP 13.4 mmol/L (8-16); CALCIUM 7.5 mg/dL (8.5-10.1); CARBON DIOXIDE 23.7 mmol/L (21.0-32.0); CREATININE - SERUM 1.3 mg/dL (0.6-1.3); POTASSIUM - SERUM 3.1 mmol/L (3.5-5.1)
--- NOTE | 2019-03-31 11:21 | NUR ---
LAB ORDERS PLACED STAT AT THIS TIME FOR RAPID RESPONSE THAT WAS CALLED DUE TO PATIENT HEARTRATE 39 WHEN GOTTEN OOB FOR THERAPY AND SAT TO CHAIR AT BEDSIDE. PATIENT IMMEDIATELY PLACED BACK IN BED BY PHYSICAL THERAPY RAPID RESPONSE CALLED.
[2019-03-31 11:25] LABS: BASOPHILS 0.1 % (0-2); EOSINOPHILS 2.7 % (0-7); HEMATOCRIT 26.7 % (42.0-54.0); HEMOGLOBIN 8.9 g/dL (13.5-17.5); IMMATURE GRANULOCYTES 0.2 % (0-5); LYMPHOCYTES 8.7 % (15-50); MCHC 33.3 g/dL (31.0-37.0); MCV 89.9 fL (80.0-100.0); MEAN PLATELET VOLUME 10.1 fL (7.4-10.4); MONOCYTES 8.3 % (2-11); RBC 2.97 10x6/uL (4.20-6.10); WBC 8.8 10x3/uL (4.8-10.8)
[2019-03-31 11:27] LABS: PLATELET COUNT 193 10x3/uL (130-400)
--- NOTE | 2019-03-31 11:30 | NUR ---
RAPID RESPONSE NOTED FOR PT, PT EXPERIENCED BRADYCARDIA TO 39 SINUS AFTER TRANSFERRING TO CHAIR WITH ASSIST. PT THEN ASSITED BACK TO BED BY PHYSICAL THERAPY ASSIST. WHEN ARRIVED TO ROOM PT HEART RATE WAS 70S AFIB PER EKG OBTAINED, ABG, CARDIAC ENZYMES, AND CMP OBTAINED. DR SANON CALLED, STATED TO TRANSFER PT TO ICU NOW. SECOND EKG OBTAINED, STATED PT IN SINUS RHYTHM. AT BEDSIDE. PT TRANSFERRED TO UNIT VIA BED ACCOMPANIED BY HOSPITAL STAFF. VSS. NO ACUTE DISTRESS NOTED. WILL CONTINUE TO CLOSLY OBSERVE.
--- NOTE | 2019-03-31 11:35 | NUR ---
DR SANON HERE TO SEE PT. ORDERS RECIEVED.
[2019-03-31 11:36] LABS: ALBUMIN 2.2 g/dL (3.4-5.0); ALKALINE PHOSPHATASE 70 U/L (46-116); ALT (SGPT) 16 U/L (10-68); BILIRUBIN - TOTAL 0.29 mg/dL (0.2-1.3); CALC OSMOLALITY 276 mosm/kg (275-300); CALCIUM 7.7 mg/dL (8.5-10.1); CARBON DIOXIDE 25.9 mmol/L (21.0-32.0); CHLORIDE - SERUM 102 mmol/L (98-107); CREATININE - SERUM 1.5 mg/dL (0.6-1.3); GLUCOSE 125 mg/dL (74-106); POTASSIUM - SERUM 3.1 mmol/L (3.5-5.1); PROTEIN - SERUM 5.7 g/dL (6.4-8.2); SODIUM 136 mmol/L (136-145); UREA NITROGEN 24 mg/dL (7-18); eGFR NON AFRICAN AMERICAN 47 mL/min (90-120)
[2019-03-31 11:47] LABS: CKMB 0.3 U/L (0.0-3.6); CREATINE KINASE 52 UL (21-232); TROPONIN-I 0.041 ng/mL (0.000-0.060)
[2019-03-31 12:47] LABS: T4 THYROXIN - FREE 1.09 ng/dL (0.76-1.46); THYROID STIMULATING HORMONE 9.45 uIU/mL (0.36-3.74)
--- NOTE | 2019-03-31 12:47 | NUR ---
PT HAS NO IV ACCESS, ATTEMPTED X4 TIMES TOTAL BY 2 NURSES. UNSUCESSFUL. VEINS WEAK AND BLOW WHEN ATTEMPTING TO FLUSH LINE. DR SANON NOTIFIED OF THIS, ORDERED A SURGERY CONSULT FOT CVL PLACEMENT. WILL PAGE SURGEON CHIEF OF ANESTHESIOLOGY. NO ACUTE DISTERSS NOTED. WILL CONTINUE PLAN OF CARE.
--- NOTE | 2019-03-31 13:38 | NUR ---
DR JOHN PAGED AGAIN REGARDING CONSULT.
--- NOTE | 2019-03-31 14:02 | NUR ---
DR DOUGLASS AND DR JOHN NOTIFIED AND AWARE OF CONSULT. STATED WILL BE BY LATER TO SEE PT.
--- NOTE | 2019-03-31 19:41 | NUR ---
PER DR SANON, CANCEL NS BOLUS.
--- NOTE | 2019-03-31 19:44 | NUR ---
RECIEVED PHONE CALL FROM VONDA IN RADIOLOGY THAT CENTRAL LINE WAS IN PLACE.
--- NOTE | 2019-03-31 20:25 | NUR ---
RECIEVED REPORT. PT A/O X3. IN ROOM. RIGHT IJ HAD MINIMAL BLEEDING WHEN RECIEVING REPORT FROM DAY SHIFT. RN PLACED SAND BAG ON SITE. WILL CONTINUE TO MONITOR BLEEDING. DENIES PAIN OR NEEDS AT THIS TIME. O2 ON 2L VIA NC. VITAL WNL. LAFLEUR INTACT. STARTED IV KCL 20 MEQ AT 75ML/HR THROUGH RIGHT IJ. CL IN REACH. WCTM
--- NOTE | 2019-03-31 20:35 | NUR ---
ASSISTED PT ON BEDPAN DUE TO HAVING URGE TO HAVE BM. LEFT ROOM TO GIVE PRIVACY WENT BACK IN 5 MIN LATER. PT STATED HE JUST HAD GAS. REMOVED BEDPAN. WCTM
--- NOTE | 2019-03-31 21:57 | NUR ---
ADJUSTED SANDBAG TO MEASURE THE DRAINAGE AREA FROM CENTRAL LINE. DENIES NEEDS AT THIS TIME. WENT HOME FOR THE NIGHT. CL IN REACH. SIDE RAILS X3. BED ALARM ON. WCTM
[2019-04-01] VITALS (16 sets, daily range): BP systolic 108–154; BP diastolic 51–73
--- NOTE | 2019-04-01 00:12 | NUR ---
PT RESTING QUIETLY. CL IN REACH. NO DISTRESS NOTED. VITALS WNL. RECHECKED CENTRAL LINE AREA AND ADJUSTED THE SAND BAG. CHANGED PILLOW CASE COVERING SAND BAG TO MONITOR BLEEDING. MINIMAL BLEEDING NOTED. WCTM
--- NOTE | 2019-04-01 01:51 | NUR ---
PT RESTING QUIETLY. NO DISTRESS NOTED. CL IN REACH. RESP EVEN AND UNLABORED. WILL CONTINUE TO MONITOR
--- NOTE | 2019-04-01 04:00 | NUR ---
HYBICLEANSE BATH GIVEN. TOLERATED WELL. REMOVED SAND BAG WITH LARGE CLOTS NOTICED ON BED. CLEANED AROUND DRESSING AND CONTINUED TO GIVE BATH AND AT THE END OF BATH THE SITE STILL HAD MINIMAL BLEEDING RUNNING OUT OF SITE. SAND BAG REAPPLIED. LINENS CHANGED. DENIES NEEDS OR PAIN AT THIS TIME. BED IN LOW SIDE RAILS X3. WCTM CL IN REACH
--- NOTE | 2019-04-01 06:03 | NUR ---
MORNING MED GIVEN. NO COMPLICATIONS. DENIES NEEDS AT THIS TIME. BED IN LOW SIDE RAILS X3. WCTM CL IN REACH
[2019-04-01 06:06] LABS: ANION GAP 11.6 mmol/L (8-16); CALCIUM 7.2 mg/dL (8.5-10.1); CARBON DIOXIDE 26.1 mmol/L (21.0-32.0); POTASSIUM - SERUM 3.7 mmol/L (3.5-5.1)
[2019-04-01 06:09] LABS: CREATININE - SERUM 1.1 mg/dL (0.6-1.3)
--- NOTE | 2019-04-01 07:28 | NUR ---
I have reviewed this patient and I concur with the Shift Assessment completed by the Licensed Practical Nurse today this shift.
--- NOTE | 2019-04-01 07:30 | NUR ---
PATIENT IS ALERT AND ORIENTED TO SELF, PLACE, AND SITUATION. SHIFT ASSESSMENT COMPLETED AT THIS ITME. VSS. PATIENT STATES HE IS COLD. SANDBAG IN PLACE. CVL IS SOILED. FAMILY IS AT BEDSIDE DURING THIS TIME. GENERALIZED SWELLING IN LOWER EXTREMITIES. WILL CONTINUE TO MONITOR
--- NOTE | 2019-04-01 09:00 | NUR ---
family at bedside. will continue to monitor
--- NOTE | 2019-04-01 10:00 | NUR ---
family at bedside. patient is running a temperature of 99.9. patient refuses to remove blankets.
--- NOTE | 2019-04-01 11:00 | NUR ---
PATIENT RESTING. VSS. WILL CONTINUE TO MONITOR CVL INSERTION. CALL LIGHT WITHIN REACH. BED LOW AND LOCKED
--- NOTE | 2019-04-01 11:08 | NUR ---
Nutrition follow-up: Pt now in ICU due to rapid reponse Altert, awake to person Diet: Regular with ~50% po intake of some meals Labs reviewe Wt: 148# Some lower leg edema noted per nursing +BM RDN following.
--- NOTE | 2019-04-01 13:44 | OP ---
PATIENT NAME: FRANCISCA GRISSOM III MEDICAL RECORD: [id number] :28 LOCATION[facility] D.2308 ADMISSION DATE:03/27/19 SURGEON: RON JOHN MD DATE OF OPERATION: 03/31/2019 PREOPERATIVE DIAGNOSES: Bradycardia, also near syncope. POSTOPERATIVE DIAGNOSES: Bradycardia, also near syncope. PROCEDURE: Insertion of right 16 cm neck double lumen central venous line. SURGEON: Ron John MD INSTALLER: None. BLOOD LOSS: Minimal. ANESTHESIA: Local. The patient had a near syncopal episode on the floor. He was bradycardic at the time. He has no IV access. The risks, possible complications and alternatives to the procedure were explained. He elects to proceed. The discussion specifically included, but was not limited to, bleeding requiring emergency reoperation, infection, and great vessel injury. OPERATIVE COURSE: The patient was seen in his ICU bed. The entire procedure was performed with the presence of a nurse. The patient was positioned in the Trendelenburg position. The right neck was sterilely prepped and draped. A local anesthetic was used to infiltrate the skin and subcutaneous tissues at the base of the right neck. The right internal jugular vein was percutaneously accessed in an antegrade fashion. Guidewire passed easily. A small skin krupa was accomplished. A vessel dilator was used to dilate the subcutaneous tract. A 16-cm double lumen central venous catheter was inserted to the hub. It was sutured in place times 2. All lumens flushed easily and aspirated dark, nonpulsatile blood. A stat portable chest x-ray revealed adequate placement of the central venous line. I will see the patient on a p.r.n. basis. TRANSINT:[id number] Voice Confirmation ID: [id number] DOCUMENT ID: [id number] RON JOHN MD at 1344 CC: [id number] DICTATION DATE: 04/01/19 1015 LIFE MANAGEMENT TEACHER: 04/01/19 1052 ADM IN [id number] [place] [id number]
--- NOTE | 2019-04-01 14:36 | NUR ---
PATIENT WAS BATHED RIGHT BEFORE SHIFT CHANGE. PATIENT REFUSED A BATH BEFORE TRANSFER TO FLOOR.
--- NOTE | 2019-04-01 14:36 | NUR ---
SPOKE TO DR DOUGLASS AND CONSTANTIN. UPDATE GIVEN.
--- NOTE | 2019-04-01 15:00 | NUR ---
PATIENT RESTING. VSS. WILL CONTINUE TO MONITOR FOR BLEEDING AT CVL SITE.
--- NOTE | 2019-04-01 15:00 | NUR ---
CVL DRESSING CHANGED
--- NOTE | 2019-04-01 17:29 | NUR ---
report given to margot on the floor
--- NOTE | 2019-04-01 17:53 | NUR ---
RECIEVED PT IN ROOM. PT IS GRUMPY, C/O MOVEMENT AND BEING HUNGRY (WILL OBLIGE WITH FOOD ORDER). STATES HOW GREATFUL SHE WAS FOR THE ENTIRE RAPID RESPONSE TEAM THAT RESOPNDED TO HER HUSBANDS BLOCK DOWN THE DAY HE WENT TO ICU. SHE STATES WE ARE ALL WONDERUFL AND SHOULD BE ON THE [employer] TEAM. REQUESTS RECLINER, WILL TRY TO FIND ONE. PT IS LYINGIN BED ON BACK, COMFROTABLE. UNABLE TO PUT A TELEMTRY MONITOR ON AT THIS TIME D/T LACK OF ONE BEING READY (THERE ARE SEVERAL ORDERS FOR TELEMETRY AHEAD OF HIS, PRINT WASHER IS TRYING) WILL PUT ONE ON SOON IT'S AVLALIABLE. CL IN REACH, SRX2.
--- NOTE | 2019-04-01 17:59 | NUR ---
PTS CVL RIGHT CHEST IS BLEEDING, SANDBAG IN PLACE.
--- NOTE | 2019-04-01 18:44 | MORECARE ---
CASE MANAGEMENT DISCHARGE SUMMARY PATIENT: FRANCISCA GRISSOM III UNIT: [id number] ADM DATE: 03/27/19 AGE: 88 : 29 SEX: M ROOM/BED: D.2137 AUTHOR: ARSENIO JOSHUA PHYSICIAN: REFERRING PHYSICIAN: DES KILLIAN MD DATE OF SERVICE: 04/01/19 Discharge Plan Patient Name: FRANCISCA GRISSOM [facility] [facility] 1930 Planned Disposition: Anticipated Discharge Date: Discharge Date: Expected LOS: Initial Reviewer: [email or web address] Initial Review Date: 04/01/2019 Generated: 04/01/19 7:44 pm DCPIA - Discharge Planning Initial Assessment Updated by [email or web address]: Mirna Slaughter on 04/01/19 6:42 pm * Is the patient Alert and Oriented? Yes * How many steps to enter\exit or inside your home? * PCP Get * Pharmacy [facility] * Preadmission Environment Home with Family * ADLs Independent * Equipment Rolling Walker * Other Equipment walker with seat, cane * List name and contact numbers for known caregivers / representatives who currently or will assist patient after discharge: Ashley Hernandez - - [phone], * Verbal permission to speak to the caregivers and representatives has been obtained from the patient. Yes * Community resources currently utilized None * Additional services required to return to the preadmission environment? No * Can the patient safely return to the preadmission environment? Yes * Has this patient been hospitalized within the prior 30 days at any hospital? No Patient Name: FRANCISCA GRISSOM Page [id number] at 1844 All edits/amendments must be made on the electronic document DICTATION DATE: 04/01/191843 WEB RETAILER: ESPERANZA 04/01/191843 RPT#: [id number] DC DATE: STATUS: ADM IN [facility] [address] [place] [address] END OF REPORT
--- NOTE | 2019-04-01 18:58 | MORECARE ---
CASE MANAGEMENT DISCHARGE SUMMARY PATIENT: FRANCISCA GRISSOM [facility] UNIT: [id number] ADM DATE: 03/27/19 AGE: 88 : 29 SEX: M ROOM/BED: D.2137 AUTHOR: JOSIANE,DOC PHYSICIAN: REFERRING PHYSICIAN: DES KILLIAN MD DATE OF SERVICE: 04/01/19 Discharge Plan Patient Name: FRANCISCA GRISSOM [facility] [facility] 1930 Planned Disposition: Anticipated Discharge Date: Discharge Date: Expected LOS: Initial Reviewer: [email or web address] Initial Review Date: 04/01/2019 Generated: 04/01/19 7:57 pm Comments DCP- Discharge Planning Updated by [id number]: Mirna Slaughter on 04/01/19 5:[address] Patient Name: FRANCISCA GRISSOM Admission Status: ER Accout number: [id number] Admission Date: 03-27-2019 : 1930 Admission Diagnosis: Attending: DES KILLIAN Current LOS: 5 Anticipated DC Date: Planned Disposition: Primary Insurance: MEDICARE A & B Discharge Planning Comments: CM met with patient and spouse (Ashley Concepcion) at bedside after explaining CM role and obtaining verbal consent. Patient lives at home with his Ashley Concepcion and plans to return there upon discharge. Ashley Concepcion is requesting patient get some rehab before he comes back home. Ashley Concepcion stated that [facility] is close to her home but if he needs inpatient rehab then that's what she will do. (Ashley Concepcion stated that Dr. Torres told her he needed an inpatient rehab facility not like a convalescent home facility since he is going to require surgery on prostate soon.) CM discussed availability / needs of home health and medical equipment. CM will continue to follow and assist as needed with discharge planning / needs. Personnel Arbitrator: Mirna Slaughter DCPIA - Discharge Planning Initial Assessment Updated by [email or web address]: Mirna Slaughter on 04/01/19 6:42 pm * Is the patient Alert and Oriented? Yes * How many steps to enter\exit or inside your home? * PCP Get * Pharmacy [facility] * Preadmission Environment Home with Family * ADLs Independent * Equipment Rolling Walker * Other Equipment walker with seat, cane * List name and contact numbers for known caregivers / representatives who currently or will assist patient after discharge: Ashley Hernandez - - [phone], * Verbal permission to speak to the caregivers and representatives has been obtained from the patient. Yes * Community resources currently utilized None * Additional services required to return to the preadmission environment? No * Can the patient safely return to the preadmission environment? Yes * Has this patient been hospitalized within the prior 30 days at any hospital? No Last DP export: 04/01/19 5:44 p Patient Name: FRANCISCA GRISSOM Page [id number] at 1858 All edits/amendments must be made on the electronic document DICTATION DATE: 04/01/191856 MULTINEEDLE SHIRRER: ESPERANZA 04/01/191856 RPT#: [id number] DC DATE: STATUS: ADM IN [facility] [address] [place] [address] END OF REPORT
--- NOTE | 2019-04-01 19:09 | NUR ---
PT IS STILL BLEEDING FROM CENTRAL LINED. I CLEANED THE AREA BUT DID NOT REMOVE THE DRESSING D/T TRYING TO KEEP THE AREA CLOTTED BEST POSSIBLE. PT IS STILL UNHAPPY AND STATES HE'S COLD AND WANTS MORE BLANKET. NOT PROVIDING AT THIS TIME D/T FEVER. PLACED WRAPPED FLUID BAG ON BLEEDING CENTRAL LINE. AT BEDSIDE STATES HOW HAPPY SHE IS TO BE BACK ON OUR FLOOR WITH OUR EXCELLENT NURSES. CL IN REACH, SRX2.
--- NOTE | 2019-04-01 20:39 | NUR ---
BEDSIDE REPORT GIVEN, EVENING ROUNDS COMPLETED. VSS, AAO X4, NO SS OF DISTRESS. LAFLEUR INTACT WITH RADHA COLOR URINE. BILAT LOWER EXTREMITIES BRUISED AND LESS EDEMA NOTES, PT STATES HIS LEGS FEEL BETTER. AT BEDSIDE, VOICED CONCERN ABOUT CVL AND THAT SHE WISHES TO HAVE IT REMOVED. 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 EXTRA BLANKET PROVIDED PER PT REQUEST. PT DENIES ANY OTHER NEEDS AT THIS TIME, WILL CPOC.
--- NOTE | 2019-04-01 21:00 | NUR ---
FOUND PT CVL SITE/LINENS COVERED WITH A MODERATE AMOUNT OF BLOOD. PT CO PAIN AT CVL SITE. ASSESSED, CLEANED SITE AND REINFORCED DRESSING. CHANGED LINENS. REPOSITIONED PT IN BED. PT VOICED THANKS, CALL LIGHT IN REACH, BED IN LOWEST POSITION.
[2019-04-02] VITALS: BP 131/63
--- NOTE | 2019-04-02 01:16 | NUR ---
CALLED DES MONTES. STATED WILL REMOVE THE RIJ IN AM, TO REINFORCE THE DRESSING AND TO MAKE EFFORT TO STOP THE BLEEDING. PT HAD A BM, LINEN CHANGED. PT VOICED THANKS, WILL CONTINUE TO MONITOR.
[2019-04-02 04:00] VITALS: BP 130/58
[2019-04-02 05:47] LABS: CARBON DIOXIDE 25.8 mmol/L (21.0-32.0); CREATININE - SERUM 1.1 mg/dL (0.6-1.3); POTASSIUM - SERUM 3.8 mmol/L (3.5-5.1)
[2019-04-02 05:51] LABS: CALCIUM 6.9 mg/dL (8.5-10.1)
--- NOTE | 2019-04-02 07:00 | NUR ---
HE IS ALERT THIS AM. CENTRAL LINE TO RIGHT IJ IS BLEEDING SOME WITH PRESSURE BAG ON IT. BRIGHT RED BLOOD NOTED. RESP EVEN WITHOUT LABOR O2 ON. O2 AT 3 L/P PER N/C. F/C PATENT WITH RADHA URINE DRAINING.
[2019-04-02 08:03] LABS: BASOPHILS 0.4 % (0-2); EOSINOPHILS 6.3 % (0-7); HEMATOCRIT 21.7 % (42.0-54.0); IMMATURE GRANULOCYTES 0.6 % (0-5); LYMPHOCYTES 15.2 % (15-50); MCH 29.8 pg (26.0-34.0); MCHC 33.6 g/dL (31.0-37.0); MCV 88.6 fL (80.0-100.0); NEUTROPHILS 62.5 % (40-80); PLATELET COUNT 204 10x3/uL (130-400); RBC 2.45 10x6/uL (4.20-6.10)
[2019-04-02 08:14] LABS: WBC 5.3 10x3/uL (4.8-10.8)
[2019-04-02 08:19] LABS: HEMOGLOBIN 7.3 g/dL (13.5-17.5)
--- NOTE | 2019-04-02 08:25 | NUR ---
SPOKE WITH DR BREAUX AT THIS TIME ABOUT RIGHT IJ BLEEDING WITH SANDBAG ON IT AND DR KILLIAN WANTING HIM TO COME LOOK TO SEE WHAT CAN BE DONE WITH IT. NEW ORDER FROM DR KILLIAN FOR 2 UNITS OF BLOOD TO BE TRANSFUSED DUE TO LOW H/H RESULT.
[2019-04-02 08:45] VITALS: BP 127/52
[2019-04-02 11:29] VITALS: BP 122/55
--- NOTE | 2019-04-02 13:05 | NUR ---
AFTER CONSENTS SIGNED FOR BLOOD 1ST UNIT OF BLOOD STARTED AT THIS TIME.
--- NOTE | 2019-04-02 13:47 | NUR ---
REHAB PRESCREENING Rehab referral received and chart reviewed. Mr. Rodriguez has PT evaluation ordered. Rehab will continue to follow for admission criteria. Thank you for this referral! Cyndi Galvez, SEED SALES MANAGER Rehab [facility]
--- NOTE | 2019-04-02 14:59 | NUR ---
AFTER PAGING DR BREAUX TWICE NURSING MESSAGE WAS SENT TO TRANSFUSE BOTH UNITS OF BLOOD GET SALINE LOCK AND D/C LINE THEN, AT BEDSIDE AND AWARE.
[2019-04-02 15:05] VITALS: BP 131/62
--- NOTE | 2019-04-02 15:45 | NUR ---
SALINE LOCK 20 GUAGE STARTED IN LEFT FOREARM X1 STICK BY RASHARD.
--- NOTE | 2019-04-02 17:50 | NUR ---
HE HAS HAD BOTH UNITS OF BLOOD INFUSED AT THIS TIME. 2ND UNIT IS COMPLETE NOW. CALLED ICU TO LET NURSE KNOW SO SHE CAN COME PULL THE LINE. PRESSURE BAG REMAINS ON AT THIS TIME DUE TO WAITING ON IT GETTING PULLED OUT. HIS IS COMFORTABLE WITH ICU NURSE PULLING IT. LINEN CHANGE DONE WITH SOME BLOOD NOTED THE SITE HAS BEEN BLEEDING ON AND OFF ALL DAY
--- NOTE | 2019-04-02 18:45 | NUR ---
ONCOMING SHIFT AWARE OF NEED FOR LINE TO BE D/C AND CURRENTLY HAS SANDBAG ON HIS NECK
--- NOTE | 2019-04-02 19:45 | NUR ---
ROUNDS COMPLETED, VSS, AAOX3 NO S/S OF DISTRESS. SPOUSE @BEDSIDE. SPOUSE WORRIED AND AGGITATED ABOUT PT'S CVL, SHE SAID SHE WANTS IT OUT, PT ALSO C/O OF THE CVL LINE BLEEDING ALL OVER AND THAT HE IS VERY UNCOMFORTABLE. NOTIFIED ICU NURSE ANTWAN, HE STATES HE WILL COME OVER TO REMOVE THE CVL LINE. PT COMPLETED SECOND UNIT OF BLOOD AT SHIFT CHANGE. WILL CPOC. CL WITHIN REACH, SAND BAG ON SHOULDER TO HOLD PRESSURE ON CVL SITE. WILL CTM.
--- NOTE | 2019-04-02 20:05 | NUR ---
PROCEDURE OF REMOVING CVL WAS EXPLAINED TO THE PATIENT ANS FAMILY. PT VERBALIZED UNDERSTANDING. NURSE HOWARD AT BEDSIDE ASSISTING WITH PROCEDURE. CVL WAS REMOVED FROM RIGHT SIDE OF NECK WITH TIP INTACT. PT SUSANA WELL. PRESSURE DRESSING WAS PLACED OVER SITE AND DIRECT PRESSURE WAS STARTED. NURSE HOWARD WAS ADVISED TO HOLD PRESSURE DIRECT PRESSURE FOR AT LEAST 5 MIN TO THE SITE AND MONITOR FOR BLEEDING
--- NOTE | 2019-04-02 20:15 | NUR ---
ANTWAN FROM ICU IN PT'S ROOM @ THIS TIME. PROCEDURE EXPLAINED TO PT. PT VERBALIZED UNDERSTANDING. CVL LINE REMOVED FROM RIGHT SIDE OF NECK. PT TOLERATE WELL. NO S/S OF BLEEDING. PRESSURE APPLIED ON THE SITE FOR 25MIN, SINCE PT STATES HE USE TO BE ON BLOOD THINNER. PT TOLERATE WELL. WILL CTM. SPOUSE AT BEDSIDE.
--- NOTE | 2019-04-02 21:06 | NUR ---
REASSESS SITE WHERE CVL WAS REMOVED. SITE APPEARS INTACT AND DRY. NO S/S OF BLEEDING. WARM BLANKET PROVIDED PER PT'S REQUEST. WILL CTM. CL WITHIN REACH.
[2019-04-02 22:14] VITALS: BP 138/53
[2019-04-03 01:01] VITALS: BP 142/58
[2019-04-03 05:16] VITALS: BP 166/70
[2019-04-03 06:49] LABS: CALC OSMOLALITY 273 mosm/kg (275-300); CALCIUM 7.4 mg/dL (8.5-10.1); CARBON DIOXIDE 24.1 mmol/L (21.0-32.0); CHLORIDE - SERUM 103 mmol/L (98-107); GLUCOSE 80 mg/dL (74-106); POTASSIUM - SERUM 4.1 mmol/L (3.5-5.1); SODIUM 137 mmol/L (136-145); UREA NITROGEN 14 mg/dL (7-18); eGFR NON AFRICAN AMERICAN 75 mL/min (90-120)
--- NOTE | 2019-04-03 07:08 | NUR ---
REPORT RECEIVED. ALERT HE STATES I WAS SICK AT MY STOMACH A LITTLE WHILE AGO. DENIES ANY N/V AT THIS TIME. SITE TO RIGHT NECK WITH SOME OLD DRIED BLOOD NOTED. REPORTED IT SEEPED A LITTLE LAST NIGHT BUT NOT MUCH. SALINE LOCK INTACT TO LEFT FOREARM. F/C PATENT WITH RADHA URINE DRAINING. CL IN REACH. O2 ON AT 3 L/M PER N/C
[2019-04-03 07:59] LABS: BASOPHILS 0.5 % (0-2); EOSINOPHILS 5.8 % (0-7); IMMATURE GRANULOCYTES 0.8 % (0-5); LYMPHOCYTES 16.1 % (15-50); MCH 30.4 pg (26.0-34.0); MCV 86.8 fL (80.0-100.0); MEAN PLATELET VOLUME 9.9 fL (7.4-10.4); MONOCYTES 12.8 % (2-11); PLATELET COUNT 207 10x3/uL (130-400); RDW 13.8 % (11.5-14.5); WBC 6.4 10x3/uL (4.8-10.8)
[2019-04-03 08:07] LABS: HEMATOCRIT 28.3 % (42.0-54.0); HEMOGLOBIN 9.9 g/dL (13.5-17.5); RBC 3.26 10x6/uL (4.20-6.10)
--- NOTE | 2019-04-03 08:17 | NUR ---
CALLED DR KILLIAN WITH RESULTS OF H/H PER HIS REQUEST. HE GAVE NO NEW ORDERS EXCEPT FOR THERAPY TO WORK WITH HIM AND TO TRY TO KEEP N/V UNDER CONTROL. ALSO GAVE HIM UPDATE THAT DRESSING TO RIGHT NECK WAS CLEANED AND CHANGED AND THERE IS A GOOD CLOT TO SIGHT.
[2019-04-03 08:41] VITALS: BP 136/64
--- NOTE | 2019-04-03 10:00 | NUR ---
GAVE BED BATH THEN ASSISTED HIM UP TO HIS CHAIR. HE WAS ABLE TO HELP TRANSFER. F/C IS PATENT WITH RADHA URINE DRAINING. CL IN REACH IN ROOM. NO BLEEDING NOTED FROM RIGHT SITE.
[2019-04-03 12:04] VITALS: BP 130/72
--- NOTE | 2019-04-03 15:11 | NUR ---
Nutrition follow-up: Diet: Regular PO intake ~50% of meals; pt with some nausea, vomiting per nursing Labs reviewed Bedscale wt today: 148# Admit wt was stated wt +BM Will encourage nutritional supplements RDN following.
[2019-04-03 15:46] VITALS: BP 132/68
--- NOTE | 2019-04-03 16:00 | NUR ---
HE SIT UP IN CHAIR MOST OF DAY,. HE IS ON ROOM AIR NOW AND TOLERATING THAT WELL WITH RT AWARE. O2 SAT IS 97%. OFFERS NO C/O
--- NOTE | 2019-04-03 19:45 | NUR ---
EVENING ROUNDS COMPLETED. VSS, AAOX3, NO S/S OF DISTRESS. RR EVEN AND UNLABORED. SPOUSE @BEDSIDE. PIV/LAFLEUR INTACT, URINE YELLOW. ACCESSED PT DRESSING ON RIGHT NECK. C/D/I. PT STATES HE FEEL BETTER TODAY. VOICED THANKS. DENIES ANY FURTHER NEEDS AT THIS TIME. WILL CTM. CL WITHIN REACH.
[2019-04-03 20:00] VITALS: BP 103/58
[2019-04-04] VITALS: BP 121/52
[2019-04-04 04:00] VITALS: BP 117/50
[2019-04-04 06:08] LABS: ANION GAP 9.1 mmol/L (8-16); CALCIUM 7.5 mg/dL (8.5-10.1); CARBON DIOXIDE 25.8 mmol/L (21.0-32.0); POTASSIUM - SERUM 3.9 mmol/L (3.5-5.1)
[2019-04-04 06:13] LABS: BASOPHILS 0.5 % (0-2); EOSINOPHILS 8.1 % (0-7); HEMATOCRIT 27.3 % (42.0-54.0); HEMOGLOBIN 9.4 g/dL (13.5-17.5); IMMATURE GRANULOCYTES 1.1 % (0-5); LYMPHOCYTES 15.6 % (15-50); MCH 30.1 pg (26.0-34.0); MCHC 34.4 g/dL (31.0-37.0); MCV 87.5 fL (80.0-100.0); MEAN PLATELET VOLUME 9.7 fL (7.4-10.4); MONOCYTES 11.7 % (2-11); PLATELET COUNT 217 10x3/uL (130-400); RBC 3.12 10x6/uL (4.20-6.10); RDW 14.1 % (11.5-14.5); WBC 6.4 10x3/uL (4.8-10.8)
[2019-04-04 06:28] LABS: CREATININE - SERUM 1.3 mg/dL (0.6-1.3)
[2019-04-04 08:49] VITALS: BP 107/53
[2019-04-04 12:25] VITALS: BP 109/52
--- NOTE | 2019-04-04 16:16 | MORECARE ---
CASE MANAGEMENT DISCHARGE SUMMARY PATIENT: FRANCISCA GRISSOM [facility] UNIT: [id number] ADM DATE: 03/27/19 AGE: 88 : 28 SEX: M ROOM/BED: D.2137 AUTHOR: JOSIANE,DOC PHYSICIAN: REFERRING PHYSICIAN: DES KILLIAN MD DATE OF SERVICE: 04/04/19 Discharge Plan Patient Name: FRANCISCA GRSISOM [facility] [facility] 1930 Planned Disposition: Long Term Facility Anticipated Discharge Date: 04/05/19 Discharge Date: Expected LOS: 9 Initial Reviewer: [email or web address] Initial Review Date: 04/01/2019 Generated: 04/04/19 5:15 pm DCP- Discharge Planning Updated by [id number]: Mirna Slaughter on 04/01/19 5:[address] Patient Name: FRANCISCA GRISSOM Admission Status: ER Accout number: [id number] Admission Date: 03-27-2019 : 1930 Admission Diagnosis: Attending: DES KILLIAN Current LOS: 5 Anticipated DC Date: Planned Disposition: Primary Insurance: MEDICARE A & B Discharge Planning Comments: CM met with patient and spouse (Juan Antonio Hampton) at bedside after explaining CM role and obtaining verbal consent. Patient lives at home with his Juan Antonio Hampton and plans to return there upon discharge. Juan Antonio Hampton is requesting patient get some rehab before he comes back home. Juan Antonio Hampton stated that [facility] is close to her home but if he needs inpatient rehab then that's what she will do. (Juan Antonio Hampton stated that Dr. Torres told her he needed an inpatient rehab facility not like a convalescent home facility since he is going to require surgery on prostate soon.) CM discussed availability / needs of home health and medical equipment. CM will continue to follow and assist as needed with discharge planning / needs. Beauty Shop Manager: Mirna Slaughter DCPIA - Discharge Planning Initial Assessment Updated by [id number]: Mirna Slaughter on 04/01/19 6:42 pm * Is the patient Alert and Oriented? Yes * How many steps to enter\exit or inside your home? * PCP Get * [facility]acy [facility] * Preadmission Environment Home with Family * ADLs Independent * Equipment Rolling Walker * Other Equipment walker with seat, cane * List name and contact numbers for known caregivers / representatives who currently or will assist patient after discharge: Juan Antonio Hernandez - - [phone], * Verbal permission to speak to the caregivers and representatives has been obtained from the patient. Yes * Community resources currently utilized None * Additional services required to return to the preadmission environment? No * Can the patient safely return to the preadmission environment? Yes * Has this patient been hospitalized within the prior 30 days at any hospital? No External [facility]iders [facility] Next Contact Date: 04/05/2019 Service Request Date: Service Type: Resolution: Reviewer: Comments: Coverage Notice Reviewer: LUZ ELENA Kennedy Notice Issued Date-Time: 04/04/2019 15:20 Notice Type: IM Discharge Notice Notice Delivered To: Family Member Relationship to Patient: Spouse Battery Plate Assembler Name: JUAN ANTONIO HAMPTON Delivery Method: HAND - Hand Delivered Manjula Days: Prior Verbal Notification: Recipient Understood Notice: Yes Recipient Signature: Yes Med Rec Note Co-signed by Attending: Coverage Notice Comment: Reviewer: LUZ ELENA Kennedy Notice Issued Date-Time: 04/04/2019 15:20 Notice Type: Patient Choice Letter Notice Delivered To: Family Member Relationship to Patient: Spouse Battery Plate Assembler Name: JUAN ANTONIO HAMPTON Delivery Method: HAND - Hand Delivered Manjula Days: Prior Verbal Notification: Recipient Understood Notice: Yes Recipient Signature: Yes Med Rec Note Co-signed by Attending: Coverage Notice Comment: [facility] DP export: 04/01/19 5:58 p Patient Name: FRANCISCA GRISSOM Page [id number] at 1616 All edits/amendments must be made on the electronic document DICTATION DATE: 04/04/19 1615 MANAGER ASSET MANAGEMENT: ESPERANZA 04/04/19 1615 RPT#: [id number] UT DATE: STATUS: ADM IN [facility] [address] [place] [address] END OF REPORT
--- NOTE | 2019-04-04 16:25 | NUR ---
I have reviewed this patient and I concur with the Shift Assessment completed by the Licensed Practical Nurse today this shift.
[2019-04-04 16:39] VITALS: BP 106/51
--- NOTE | 2019-04-04 16:39 | MORECARE ---
CASE MANAGEMENT DISCHARGE SUMMARY PATIENT: FRANCISCA GRISSOM III UNIT: [id number] ADM DATE: 03/27/19 AGE: 88 : 29 SEX: M ROOM/BED: D.2137 AUTHOR: JOSIANE,DOC PHYSICIAN: REFERRING PHYSICIAN: DES KILLIAN MD DATE OF SERVICE: 04/04/19 Discharge Plan Patient Name: FRANCISCA GRISSOM [facility]: [facility]:[place] : 1930 Planned Disposition: Usp Facility Anticipated Discharge Date: 04/05/19 Discharge Date: Expected LOS: 9 Initial Reviewer: [email or web address] Initial Review Date: 04/01/2019 Generated: 04/04/19 5:38 pm Comments DCP- Discharge Planning Updated by [id number]: Sheldon Kennedy on 04/04/19 3:[address] Patient Name: FRANCISCA GRISSOM Encounter No: [id number] : 1930 Primary Insurance: MEDICARE A & B Anticipated DC Date: 04-05-2019 Planned Disposition: Usp Facility External [facility] DCP follow-up note: CM SPOKE TO PT'S SPOUSE AT NURSES STATION, SHE HAS VISITED AND DECIDED ON REHAB AT [facility] AND SECOND CHOICE IS [facility]. CHOICE SIGNED, IMPORTANT MESSAGE FROM MEDICARE PROVIDED AND EXPLAINED. CM CALLED HU OF [facility] AT [phone], LEFT MESSAGE NOTIFYING OF REFERRAL. CM FAXED REFERRAL INFORMATION TO [facility] AT [phone]. CM WAITING ADMISSION DETERMINATION FROM [facility] FOR RE[facility]AB SERVICES. GARIMA Bray DCP- Discharge Planning Updated by [id number]: Mirna Slaughter on 04/01/19 5:[address] Patient Name: FRANCISCA GRISSOM Admission Status: ER Accout number: [id number] Admission Date: 03-27-2019 : 1930 Admission Diagnosis: Attending: DES KILLIAN Current LOS: 5 Anticipated DC Date: Planned Disposition: Primary Insurance: MEDICARE A & B Discharge Planning Comments: CM met with patient and spouse (Juan Antonio Hampton) at bedside after explaining CM role and obtaining verbal consent. Patient lives at home with his Juan Antonio Hampton and plans to return there upon discharge. Juan Antonio Hampton is requesting patient get some rehab before he comes back home. Juan Antonio Hampton stated that [facility] is close to her home but if he needs inpatient rehab then that's what she will do. (Juan Antonio Hampton stated that Dr. Torres told her he needed an inpatient rehab facility not like a convalescent home facility since he is going to require surgery on prostate soon.) CM discussed availability / needs of home health and medical equipment. CM will continue to follow and assist as needed with discharge planning / needs. Financial Aid: Mirna BRANDT - Discharge Planning Initial Assessment Updated by [id number]: Mirna Slaughter on 04/01/19 6:42 pm * Is the patient Alert and Oriented? Yes * How many steps to enter\exit or inside your home? * PCP Get * [facility] * Preadmission Environment Home with Family * ADLs Independent * Equipment Rolling Walker * Other Equipment walker with seat, cane * List name and contact numbers for known caregivers / representatives who currently or will assist patient after discharge: Juan Antonio Hernandez - - [phone], * Verbal permission to speak to the caregivers and representatives has been obtained from the patient. Yes * Community resources currently utilized None * Additional services required to return to the preadmission environment? No * Can the patient safely return to the preadmission environment? Yes * Has this patient been hospitalized within the prior 30 days at any hospital? No Coverage Notice Reviewer: [email or web address] Viktor Kennedy Notice Issued Date-Time: 04/04/2019 15:20 Notice Type: IM Discharge Notice Notice Delivered To: Family Member Relationship to Patient: Spouse Music Sound Light Technician Name: JUAN ANTONIO HAMPTON Delivery Method: HAND - Hand Delivered Manjula Days: Prior Verbal Notification: Recipient Understood Notice: Yes Recipient Signature: Yes Med Rec Note Co-signed by Attending: Coverage Notice Comment: Reviewer: [id number] Viktor Kennedy Notice Issued Date-Time: 04/04/2019 15:20 Notice Type: Patient Choice Letter Notice Delivered To: Family Member Relationship to Patient: Spouse Music Sound Light Technician Name: JUAN ANTONIO HAMPTON Delivery Method: HAND - Hand Delivered Manjula Days: Prior Verbal Notification: Recipient Understood Notice: Yes Recipient Signature: Yes Med Rec Note Co-signed by Attending: Coverage Notice Comment: [facility] Last DP export: 04/04/19 3:16 p Patient Name: FRANCISCA GRISSOM Page 19131 at 1639 All edits/amendments must be made on the electronic document DICTATION DATE: 04/04/191637 NUTRITION SERVICES ASSISTANT: ESPERANZA 04/04/191637 RPT#: [id number] DC DATE: STATUS: ADM IN [facility] [address] [place] [address] END OF REPORT
--- NOTE | 2019-04-04 19:10 | NUR ---
BED SIDE REPORT RECEIVED. PT AT BED SIDE. PT IS ALERT AND SPEAKS TO NURSE ABOUT POTASSIUM THAT IS INFUSING. PT HAS 1/2 NS 20 MEQ OF KCL TO LEFT ARM AT 75 PT HAS NO S/S OF DISTRESS. DENIES ANY NEEDS. NAME AND DATE PLACED ON BOARD. BED LOW AND CALL LIGHT IN REACH. BED ALARM ON AND ACTIVE. PT WILL CALL FOR ASSIST WHEN NEEDED. WILL CPOC
[2019-04-04 20:00] VITALS: BP 102/50
--- NOTE | 2019-04-04 22:57 | NUR ---
PT WANTING TO UNHOOK FROM 1/2 NS WITH 20 MEQ OF KCL. S/L LEFT FOREARM. PT ASSISTED WITH REPOSITIONING. PT WILL CALL FOR ASSIST WHEN NEEDED. WILL CPOC
--- NOTE | 2019-04-05 03:12 | NUR ---
PT ASLEEP. RESP EVEN AND UNLABORED. NO S/S OF DISTRESS. BED LOW AND CALL LIGHT IN REACH. WILL CPOC
[2019-04-05 04:00] VITALS: BP 128/55
[2019-04-05 05:35] LABS: BASOPHILS 0.6 % (0-2); EOSINOPHILS 8.5 % (0-7); HEMATOCRIT 27.2 % (42.0-54.0); HEMOGLOBIN 9.2 g/dL (13.5-17.5); IMMATURE GRANULOCYTES 1.4 % (0-5); LYMPHOCYTES 15.6 % (15-50); MCH 29.8 pg (26.0-34.0); MCHC 33.8 g/dL (31.0-37.0); MEAN PLATELET VOLUME 9.7 fL (7.4-10.4); MONOCYTES 9.4 % (2-11); NEUTROPHILS 64.5 % (40-80); PLATELET COUNT 225 10x3/uL (130-400); RBC 3.09 10x6/uL (4.20-6.10); WBC 7.9 10x3/uL (4.8-10.8)
[2019-04-05 05:45] LABS: ANION GAP 13.9 mmol/L (8-16); CALCIUM 7.5 mg/dL (8.5-10.1); CREATININE - SERUM 1.2 mg/dL (0.6-1.3); POTASSIUM - SERUM 3.9 mmol/L (3.5-5.1)
--- NOTE | 2019-04-05 06:12 | NUR ---
MORNING MEDICATIONS GIVEN. PT VERBALIZED UNDERSTANDING OF MEDICATIONS. PT HAS NO S/S OF DISTRESS. NOURISHMENT GIVEN. PT BED LOW AND CALL LIGHT IN REACH. ALARM ON AND ACTIVE. WILL CPOC
[2019-04-05] MEDS ORDERED: FLOMAX0.4 MG PO (07:35)
[2019-04-05] MEDS ORDERED: MIRALAX17 GM PO (07:37)
[2019-04-05] MEDS ORDERED: PROSCAR5 MG PO (07:38)
[2019-04-05 08:30] VITALS: BP 104/53
--- NOTE | 2019-04-05 09:46 | MORECARE ---
CASE MANAGEMENT DISCHARGE SUMMARY PATIENT: FRANCISCA GRISSOM III UNIT: [id number] ADM DATE: 03/27/19 AGE: 88 : 29 SEX: M ROOM/BED: D.2137 AUTHOR: JOSIANE,DOC PHYSICIAN: REFERRING PHYSICIAN: DES KILLIAN MD DATE OF SERVICE: 04/05/19 Discharge Plan Patient Name: FRANCISCA GRISSOM [facility]:[place] : 1930 Planned Disposition: Nursing Home Facility Anticipated Discharge Date: 04/05/19 Discharge Date: Expected LOS: 9 Initial Reviewer: [email or web address] Initial Review Date: 04/01/2019 Generated: 04/05/19 10:46 am DCP- Discharge Planning Updated by [id number]: Sheldon Kennedy on 04/04/19 3:[address] Patient Name: FRANCISCA GRISSOM Encounter No: [id number] : 1930 Primary Insurance: MEDICARE A & B Anticipated DC Date: 04-05-2019 Planned Disposition: Nursing Home Facility External [facility] DCP follow-up note: CM SPOKE TO PT'S SPOUSE AT NURSES STATION, SHE HAS VISITED AND DECIDED ON REHAB AT [facility] AND SECOND CHOICE IS [facility]. CHOICE SIGNED, IMPORTANT MESSAGE FROM MEDICARE PROVIDED AND EXPLAINED. CM CALLED HU OF [facility] AT [phone], LEFT MESSAGE NOTIFYING OF REFERRAL. CM FAXED REFERRAL INFORMATION TO [facility] AT [phone]. CM WAITING ADMISSION DETERMINATION FROM [facility] FOR REHAB SERVICES. GARIMA Bray DCP- Discharge Planning Updated by [email or web address]: Mirna Slaughter on 04/01/19 5:[address] Patient Name: FRANCISCA GRISSOM Admission Status: ER Accout number: [id number] Admission Date: 03-27-2019 : 1930 Admission Diagnosis: Attending: DES KILLIAN Current LOS: 5 Anticipated DC Date: Planned Disposition: Primary Insurance: MEDICARE A & B Discharge Planning Comments: CM met with patient and spouse (Juan Antonio Hampton) at bedside after explaining CM role and obtaining verbal consent. Patient lives at home with his Juan Antonio Hampton and plans to return there upon discharge. Juan Antonio Hampton is requesting patient get some rehab before he comes back home. Juan Antonio Hampton stated that [facility] is close to her home but if he needs inpatient rehab then that's what she will do. (Juan Antonio Hampton stated that Dr. Torres told her he needed an inpatient rehab facility not like a convalescent home facility since he is going to require surgery on prostate soon.) CM discussed availability / needs of home health and medical equipment. CM will continue to follow and assist as needed with discharge planning / needs. Food Demonstrator: Mirna BRANDT - Discharge Planning Initial Assessment Updated by [email or web address]: Mirna Slaughter on 04/01/19 6:42 pm * Is the patient Alert and Oriented? Yes * How many steps to enter\exit or inside your home? * PCP Get * [facility]acy [facility] * Preadmission Environment Home with Family * ADLs Independent * Equipment Rolling Walker * Other Equipment walker with seat, cane * List name and contact numbers for known caregivers / representatives who currently or will assist patient after discharge: Juan Antonio Hernandez - - [phone], * Verbal permission to speak to the caregivers and representatives has been obtained from the patient. Yes * Community resources currently utilized None * Additional services required to return to the preadmission environment? No * Can the patient safely return to the preadmission environment? Yes * Has this patient been hospitalized within the prior 30 days at any hospital? No Coverage Notice Reviewer: [email or web address] Viktor Kennedy Notice Issued Date-Time: 04/04/2019 15:20 Notice Type: IM Discharge Notice Notice Delivered To: Family Member Relationship to Patient: Spouse Court Recording Monitor Name: JUAN ANTONIO HAMPTON Delivery Method: HAND - Hand Delivered Manjula Days: Prior Verbal Notification: Recipient Understood Notice: Yes Recipient Signature: Yes Med Rec Note Co-signed by Attending: Coverage Notice Comment: Reviewer: [email or web address] Viktor Kennedy Notice Issued Date-Time: 04/04/2019 15:20 Notice Type: Patient Choice Letter Notice Delivered To: Family Member Relationship to Patient: Spouse Court Recording Monitor Name: JUAN ANTONIO HAMPTON Delivery Method: HAND - Hand Delivered Manjula Days: Prior Verbal Notification: Recipient Understood Notice: Yes Recipient Signature: Yes Med Rec Note Co-signed by Attending: Coverage Notice Comment: [facility] Last DP export: 04/04/19 3:39 p Patient Name: FRANCISCA GRISSOM Page 88385 at 0946 All edits/amendments must be made on the electronic document DICTATION DATE: 04/05/19945 REPORTING DEVELOPER: ESPERANZA 04/05/19945 RPT#: [id number] DC DATE: STATUS: ADM IN [facility] [address] [place] [address] END OF REPORT
--- NOTE | 2019-04-05 10:45 | NUR ---
REPORT CALLED TO [facility] NURSE SAMIA
--- NOTE | 2019-04-05 11:20 | NUR ---
Rehab Note- The patient is discharging to [facility] today for SNF, it is closer to their home. Thank you for this referral! Luz Freeman RN Clinical Liaison, [facility] Rehab
--- NOTE | 2019-04-05 11:29 | NUR ---
DC TO NH PER [facility]
--- NOTE | 2019-04-08 09:37 | MORECARE ---
CASE MANAGEMENT DISCHARGE SUMMARY PATIENT: FRANCISCA GRISSOM III UNIT: [id number] ADM DATE: 03/27/19 AGE: 88 : 29 SEX: M ROOM/BED: D.2137 AUTHOR: JOSIANE,DOC PHYSICIAN: REFERRING PHYSICIAN: DES KILLIAN MD DATE OF SERVICE: 04/08/19 Discharge Plan Patient Name: FRANCISCA GRISSOM Facility: [facility]:[place] : 1930 Planned Disposition: Residential Facility Anticipated Discharge Date: 04/05/19 Discharge Date: 04/05/2019 Expected LOS: 9 Initial Reviewer: [email or web address] Initial Review Date: 04/01/2019 Generated: 04/08/19 10:37 am DCP- Discharge Planning Updated by [email or web address]: Sheldon Kennedy on 04/04/19 3:[address] Patient Name: FRANCISCA GRISSOM Encounter No: [id number] : 1930 Primary Insurance: MEDICARE A & B Anticipated DC Date: 04-05-2019 Planned Disposition: Residential Facility External [facility] DCP follow-up note: CM SPOKE TO PT'S SPOUSE AT [facility], SHE HAS VISITED AND DECIDED ON REHAB AT [facility] AND SECOND CHOICE IS [facility]. CHOICE SIGNED, IMPORTANT MESSAGE FROM MEDICARE PROVIDED AND EXPLAINED. CM CALLED HU OF [facility] AT [phone], LEFT MESSAGE NOTIFYING OF REFERRAL. CM FAXED REFERRAL INFORMATION TO [facility] AT [phone]. CM WAITING ADMISSION DETERMINATION FROM [facility] FOR REHAB SERVICES. GARIMA Bray DCP- Discharge Planning Updated by [id number]: Mirna Slaughter on 04/01/19 5:[address] Patient Name: FRANCISCA GRISSOM Admission Status: ER Accout number: [id number] Admission Date: 03-27-2019 : 1930 Admission Diagnosis: Attending: DES KILLIAN Current LOS: 5 Anticipated DC Date: Planned Disposition: Primary Insurance: MEDICARE A & B Discharge Planning Comments: CM met with patient and spouse (Juan Antonio Hampton) at bedside after explaining CM role and obtaining verbal consent. Patient lives at home with his Juan Antonio Hampton and plans to return there upon discharge. Juan Antonio Hampton is requesting patient get some rehab before he comes back home. Juan Antonio Hampton stated that [facility] is close to her home but if he needs inpatient rehab then that's what she will do. (Juan Antonio Hampton stated that Dr. Torres told her he needed an inpatient rehab facility not like a convalescent home facility since he is going to require surgery on prostate soon.) CM discussed availability / needs of home health and medical equipment. CM will continue to follow and assist as needed with discharge planning / needs. Rn Birthing: Mirna BRANDT - Discharge Planning Initial Assessment Updated by [id number]: Mirna Slaughter on 04/01/19 6:42 pm * Is the patient Alert and Oriented? Yes * How many steps to enter\exit or inside your home? * PCP Get * Pharmacy [facility] [place] * Preadmission Environment Home with Family * ADLs Independent * Equipment Rolling Walker * Other Equipment walker with seat, cane * List name and contact numbers for known caregivers / representatives who currently or will assist patient after discharge: Juan Antonio Hernandez - - [phone], * Verbal permission to speak to the caregivers and representatives has been obtained from the patient. Yes * Community resources currently utilized None * Additional services required to return to the preadmission environment? No * Can the patient safely return to the preadmission environment? Yes * Has this patient been hospitalized within the prior 30 days at any hospital? No Coverage Notice Reviewer: [email or web address] Viktor Kennedy Notice Issued Date-Time: 04/04/2019 15:20 Notice Type: IM Discharge Notice Notice Delivered To: Family Member Relationship to Patient: Spouse Wall Crane Operator Name: JUAN ANTONIO HAMPTON Delivery Method: HAND - Hand Delivered Manjula Days: Prior Verbal Notification: Recipient Understood Notice: Yes Recipient Signature: Yes Med Rec Note Co-signed by Attending: Coverage Notice Comment: Reviewer: [id number] Viktor Kennedy Notice Issued Date-Time: 04/04/2019 15:20 Notice Type: Patient Choice Letter Notice Delivered To: Family Member Relationship to Patient: Spouse Wall Crane Operator Name: JUAN ANTONIO HAMPTON Delivery Method: HAND - Hand Delivered Manjula Days: Prior Verbal Notification: Recipient Understood Notice: Yes Recipient Signature: Yes Med Rec Note Co-signed by Attending: Coverage Notice Comment: [facility] Last DP export: 04/05/19 8:46 a Patient Name: FRANCISCA GRISSOM Page [phone] at 0937 All edits/amendments must be made on the electronic document DICTATION DATE: 04/08/19936 INSTRUCTIONAL MATERIALS DIRECTOR: ESPERANZA 04/08/19936 RPT#: [id number] DC DATE:04/05/19 STATUS: DIS IN [facility] [address] [place] [address] END OF REPORT
== END 2019-04-05 11:29 | DRG 682 ==
LOC: D.ER 22:54 → D.M2 03-27 04:44 → D.ICU 03-27 04:44 → D.M2 04-01 17:33
PROVIDERS: Family Medicine; Internal Medicine Nephrology; ADMIT Family Medicine; ATTEND Family Medicine
PROC: 02HV33Z Insertion of Infusion Device into Superior Vena Cava, Percutaneous Approach (ICD-10-PCS; principal; 2019-03-31)
DX: N17.9 Acute kidney failure, unspecified (principal); G93.41 Metabolic encephalopathy; G93.40 Encephalopathy, unspecified; N13.30 Unspecified hydronephrosis; R00.1 Bradycardia, unspecified; I25.10 Atherosclerotic heart disease of native coronary artery without angina pectoris; D64.9 Anemia, unspecified; I10 Essential (primary) hypertension; R55 Syncope and collapse; K21.9 Gastro-esophageal reflux disease without esophagitis; I71.4 Abdominal aortic aneurysm, without rupture; I35.0 Nonrheumatic aortic (valve) stenosis; N40.1 Benign prostatic hyperplasia with lower urinary tract symptoms; R33.8 Other retention of urine; E03.9 Hypothyroidism, unspecified; E87.6 Hypokalemia; Z86.73 Personal history of transient ischemic attack (TIA), and cerebral infarction without residual deficits

== ENCOUNTER 2019-04-25 11:15 | Outpatient (CLI) | payer MEDICARE, OTHER ==
[~2019-04-25] VITALS: Ht 167.6 cm; Wt 69.5 kg
[~2019-04-25 11:15] MED LIST changes: +COLACE100 MG PO; +COMBIVENT RESPIM4 GM INH; +FLOMAX0.4 MG PO; +FUROSEMIDE20 MG PO; +K-DUR20 MEQ PO; +KLOR-CON 1010 MEQ PO; +MIRALAX17 GM PO; +PREDNISONE2.5 MG PO; +PROSCAR5 MG PO
[2019-04-25 13:46] VITALS: BP 113/59; Ht 167.6 cm; Wt 69.5 kg
== END 2019-04-25 18:50 | disposition home or self-care (01) ==
LOC: D.OPS 11:15
PROVIDERS: ATTEND Internal Medicine Geriatric Medicine
DX: D64.9 Anemia, unspecified (principal)

== ENCOUNTER 2019-05-04 15:23 | Inpatient (IN) | payer MEDICARE, OTHER ==
[~2019-05-04] VITALS: Ht 167.6 cm; Wt 69.8 kg
[~2019-05-04 15:23] MED LIST changes: -[UNRECOGNIZED DRUG - OTHER]; +[UNRECOGNIZED DRUG - OTHER] PO
[2019-05-04 15:56] LABS: BASOPHILS 0.7 % (0-2); EOSINOPHILS 17.5 % (0-7); HEMATOCRIT 25.5 % (42.0-54.0); HEMOGLOBIN 8.6 g/dL (13.5-17.5); IMMATURE GRANULOCYTES 0.5 % (0-5); LYMPHOCYTES 7.4 % (15-50); MCH 28.6 pg (26.0-34.0); MCHC 33.7 g/dL (31.0-37.0); MCV 84.7 fL (80.0-100.0); MEAN PLATELET VOLUME 8.4 fL (7.4-10.4); MONOCYTES 8.8 % (2-11); NEUTROPHILS 65.1 % (40-80); RBC 3.01 10x6/uL (4.20-6.10); RDW 14.3 % (11.5-14.5); WBC 9.2 10x3/uL (4.8-10.8)
[2019-05-04 15:59] LABS: PLATELET COUNT 294 10x3/uL (130-400)
[2019-05-04 16:17] LABS: ALBUMIN 2.1 g/dL (3.4-5.0); ALKALINE PHOSPHATASE 74 U/L (46-116); ALT (SGPT) 41 U/L (10-68); BILIRUBIN - TOTAL 0.41 mg/dL (0.2-1.3); CALC OSMOLALITY 259 mosm/kg (275-300); CALCIUM 8.1 mg/dL (8.5-10.1); CARBON DIOXIDE 20.9 mmol/L (21.0-32.0); CHLORIDE - SERUM 97 mmol/L (98-107); GLUCOSE 107 mg/dL (74-106); PROTEIN - SERUM 5.9 g/dL (6.4-8.2); SODIUM 128 mmol/L (136-145); UREA NITROGEN 20 mg/dL (7-18); eGFR NON AFRICAN AMERICAN 75 mL/min (90-120)
[2019-05-04 16:28] LABS: CKMB 1.4 U/L (0.0-3.6); CREATINE KINASE 77 UL (21-232); MAGNESIUM - SERUM 1.8 mg/dL (1.8-2.4); PRO BNP 1520 pg/mL (0-450)
[2019-05-04 18:01] VITALS: BP 114/63
--- NOTE | 2019-05-04 19:22 | NUR ---
PT ARRIVED WITH AN INDWELLING LAFLEUR, STATES HE HAS AN ENLARGED PROSTATE, SPOUSE AT HIS BEDSIDE.
[2019-05-04] MEDS ORDERED: FLUTICASONE PRO16 GM NASAL (22:52)
[2019-05-04] MEDS ORDERED: PROTONIX40 MG PO (22:53)
[2019-05-04 23:11] LABS: CKMB 1.1 U/L (0.0-3.6); CREATINE KINASE 66 UL (21-232); TROPONIN-I < 0.017 ng/mL (0.000-0.060)
[2019-05-04 23:43] VITALS: BMI 25.8
[2019-05-05] VITALS: BP 123/54
--- NOTE | 2019-05-05 00:43 | NUR ---
RECIEVED REPORT FROM ER. ARRIVED TO ROOM ON STRETCHER. ALERT AND ORIENTED X4. SIGNIFICANT OTHER AT BEDSIDE. STATES HE CAN'T WALK WITH OUT ASSIST. F/C INTACT WITH CLEAR YELLOW URINE IN BEDSIDE DRAINAGE BAG. USES BEDPAN IN BED. IV TO LEFT AC SL.. DENIES ANY NEEDS AT THIS TIME.
[2019-05-05 04:00] VITALS: BP 132/57
[2019-05-05 04:41] LABS: BASOPHILS 0.6 % (0-2); EOSINOPHILS 18.2 % (0-7); HEMATOCRIT 25.5 % (42.0-54.0); HEMOGLOBIN 8.6 g/dL (13.5-17.5); IMMATURE GRANULOCYTES 0.4 % (0-5); MCH 28.7 pg (26.0-34.0); MCHC 33.7 g/dL (31.0-37.0); MEAN PLATELET VOLUME 8.7 fL (7.4-10.4); NEUTROPHILS 61.8 % (40-80); PLATELET COUNT 299 10x3/uL (130-400); RDW 14.4 % (11.5-14.5); WBC 8.1 10x3/uL (4.8-10.8)
[2019-05-05 05:10] LABS: CALC OSMOLALITY 258 mosm/kg (275-300); CALCIUM 8.1 mg/dL (8.5-10.1); CARBON DIOXIDE 21.5 mmol/L (21.0-32.0); CHLORIDE - SERUM 98 mmol/L (98-107); CKMB 1.2 U/L (0.0-3.6); CREATINE KINASE 61 UL (21-232); GLUCOSE 85 mg/dL (74-106); POTASSIUM - SERUM 3.9 mmol/L (3.5-5.1); SODIUM 129 mmol/L (136-145); UREA NITROGEN 16 mg/dL (7-18); eGFR NON AFRICAN AMERICAN 75 mL/min (90-120)
[2019-05-05 05:11] LABS: TROPONIN-I < 0.017 ng/mL (0.000-0.060)
--- NOTE | 2019-05-05 07:50 | NUR ---
ROUNDING DONE WITH PATIENT IN A BLOODY GOWN AND PINK PAD. CLEAN GOWN AND PINK PAD CHANGED. ON HEART MONITOR SHOWING SR W BBB, HR 69. ON ROOM AIR. RIGHT FA PIV SEEN WITH ANTIBIOTIC RUNNING. LAFLEUR CATH IN USE WITH CLEAR YELLOW URINE. BED ALARM ON AND IN USE. DENIES NEEDS AT THIS TIEM.
--- NOTE | 2019-05-05 07:57 | HP ---
PATIENT: FRANCISCA GRISSOM III MEDICAL RECORD: [id number] ACCOUNT: [id number] LOCATION:[address] : [birth year] ADMISSION DATE: 05/04/19 PCP: DES KILLIAN MD HISTORY AND PHYSICAL EXAMINATION REASON FOR ADMISSION: Cough with chest pain. HISTORY OF PRESENT ILLNESS: The patient is an 88-year-old male who has had several illnesses since February. He had a diverticular bleed that required hospitalization in [place] and a hemorrhoidectomy. He was hospitalized for acute renal insufficiency caused by BPH. He was seen by Dr. Torres and catheter was placed. He is scheduled to have a UroLift in May. He went to rehab at [facility] and was discharged from there last week and had a UTI prior to discharge. His said he became very confused with onset of the infection and fever. He was placed on Augmentin, which he has discontinued or finished 7-day treatment recently. He was seen in the office 2 days ago for followup and was doing well except for the cough. He is not short of breath or having chest pain. The patient states that yesterday he developed increasing cough without documented fever. No confusion and had more left-sided anterior chest pain could be hard, but did not feel like his previous angina. He came to the ED for that reason as noted to have a left lower lobe infiltrate. The patient is now being hospitalized for chest pain, hospital-acquired pneumonia. He has known history of CAD with recent junctional rhythm and aortic stenosis while hospitalized here previously. 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 History of proximal humerus fracture nondisplaced 11/2014, treated nonsurgically. Double pneumonia in 2014. Echocardiogram in February of this year revealed a mildly dilated left ventricle with an EF of 55%. Aortic valve area of 0.7 cm-squared with mild to moderate insufficiency and moderate stenosis; history of CAD, BPH, asthma, hypertension, peripheral artery disease, TIA, and hemolytic anemia. PAST SURGICAL HISTORY: Bicep tendon repair, recent internal hemorrhoidectomy times 5 bundles. Right carotid artery in 2002, CABG 02/2019, incisional biopsy of perianal mass with ligation of internal hemorrhoids as mentioned. SOCIAL HISTORY: Denies tobacco use. He has had alcohol in the past socially, but not heavily. He is now remarried retired from financial planning. FAMILY HISTORY: Mother at 60 of a stroke. Father at 86 of heart disease. CURRENT MEDICATIONS: Ventolin HFA 90 mcg 1 to 2 puffs q.4 hours, Tamsulosin 0.4 mg at bedtime, Plavix 75 mg daily, Altace 2.5 mg daily, aspirin 81 mg a day, Refresh tears 1 drop each eye b.i.d., Colace 100 mg b.i.d., MiraLax 17 grams p.o. daily, Synthroid 50 mcg p.o. q.a.m. and a.c., finasteride 5 mg p.o. daily, Ocuvite 1 daily. She has finished Augmentin 875 mg p.o. b.i.d. ALLERGIES: None known. HISTORY AND PHYSICAL [id number] FRANCISCA GRISSOM III REVIEW OF SYSTEMS: GENERAL: He has been fatigued; several hospitalizations since February. He has had poor appetite his said and so she checked him out of rehab at [facility] and has been eating better and has had some weight loss. No fever. HEENT: No recent new visual change, sinus congestion, sore throat, or hearing difficulty. RESPIRATORY: Have mild chronic cough has been nonproductive. He has had pleuritic type chest pain in the last 24 hours in left anterior chest. He has had no hemoptysis. Only mild dyspnea with walking. GASTROINTESTINAL: No nausea, vomiting, change in stools or blood per rectum. He is constipated without current meds. GENITOURINARY: Has Horn in place. He has had good urine output. No dysuria or hematuria. ENDOCRINE: Denies polyuria, polydipsia, heat or cold intolerance. NEUROLOGIC: No history of TIA. No recent neurologic symptoms. No motor deficit form generalized muscle weakness. His memory is intact. MUSCULOSKELETAL: Denies arthralgias. PSYCHIATRIC: Denies depressed mood. PHYSICAL EXAMINATION: VITAL SIGNS: Temperature is 97.9 Fahrenheit, pulse 67 and regular, respirations are 20, blood pressure is 114/63 with sat of 95% on room air. GENERAL: Alert and oriented, NAD. Eyes are clear. Oropharynx unremarkable. NECK: No bruits or masses. LUNGS: He has fine crackles in the left base. SKIN: He has pain on deep inspiration left anterior chest wall. No wheezes. HEART: Regular rate with a II/ aortic murmur. Aortic systolic murmur. ABDOMEN: Soft, nontender. GENITOURINARY: Horn is intact. Testes down. EXTREMITIES: He has 2+ mild pedal and pretibial edema to the knees bilaterally. NEUROLOGICAL: Oriented to person, place, and time. Cranial nerves grossly intact. Gait was not tested, but he has no localizing neurologic signs. LABORATORY DATA: His white count is 9000 with an H and H of 8.6 and 25.5, post recent transfusion. Platelet count 294,000. Chemistry shows sodium of 128, potassium 4.0, CO2 of 20.9, BUN and creatinine are 20 and 1.0, glucose 107 nonfasting. Calcium 8.1. ProBNP is 1520. Cardiac enzymes are currently negative. Chest x-ray shows right medial basilar consolidation concerning for pneumonia, small right pleural effusion. ASSESSMENT: 1. Hospital-acquired right lobar pneumonia. 2. Left anterior chest wall pain, possibly pleuritic. 3. Known coronary artery disease. 4. Hyponatremia. 5. Anemia, [id number]. 6. Moderate aortic stenosis. 7. Recent junctional rhythm that resolved. 8. Urinary retention with hydronephrosis, clinically improved with Horn catheter placement. 9. Known CAD post-triple bypass remotely. 10. Known coronary artery disease with a right endarterectomy in 2002. 11. Recent urinary tract infection, sensitive to Augmentin. PLAN: We will culture the patient. The patient will be admitted, cultured, HISTORY AND PHYSICAL [id number] FRANCISCA GRISSOM III placed on broad-spectrum IV antibiotics. We will obtain recent urine culture report from [facility]. Cardiac monitoring. Further workup pending clinical course. Serial cardiac enzymes. TRANSINT:[id number] Voice Confirmation ID: [id number] DOCUMENT ID: [id number] MARY SANON MD at 0757 CC: [id number] DICTATION DATE: 05/04/191845 HEMMER CHAINSTITCH: 05/04/193 ADM IN [facility] [id number] [place] [address]
--- NOTE | 2019-05-05 08:40 | NUR ---
DR GLORIA IN TO SEE PATIENT. NEW ORDERS RECEIVED.
[2019-05-05 08:47] VITALS: BP 146/90
[2019-05-05 10:45] LABS: CKMB 1.1 U/L (0.0-3.6); CREATINE KINASE 48 UL (21-232)
[2019-05-05 10:46] LABS: TROPONIN-I < 0.017 ng/mL (0.000-0.060)
[2019-05-05 12:20] VITALS: BP 106/48
--- NOTE | 2019-05-05 15:41 | NUR ---
PATIENT IS HAVING BIGEMINEAL PVC'S. DENEIS NEEDS AT THIS TIME. DENIES ANY CHEST PAIN.
[2019-05-05 17:33] VITALS: BP 111/67
[2019-05-05 20:00] VITALS: BP 133/59
--- NOTE | 2019-05-05 20:11 | NUR ---
RECIEVED UP IN BED WITH EYES CLOSED. EASILY AROUSES WITH VERBAL STIMULI. ORIENTED X4. IV TO RIGHT FA SL.. TELEMETRY IN PLACE. F/C INTACT WITH CLEAR YELLOW URINE DRAINIG TO BEDSIDE DRAINAGE BAG. BED ALARM IN PLACE AND FUNCTIONING PROPERLY. DENIES ANY NEEDS AT THIS TIME.
--- NOTE | 2019-05-05 21:34 | NUR ---
DR SANON INFORMED OF PT STATUS. ORDERS RECEIVED. PT FAMILY NOTIFIED. WILL CONTINUE TO MONITOR.
[2019-05-05 21:44] LABS: BASOPHILS 0.4 % (0-2); EOSINOPHILS 10.6 % (0-7); HEMATOCRIT 25.1 % (42.0-54.0); HEMOGLOBIN 8.6 g/dL (13.5-17.5); IMMATURE GRANULOCYTES 0.6 % (0-5); LYMPHOCYTES 8.3 % (15-50); MCH 28.8 pg (26.0-34.0); MCHC 34.3 g/dL (31.0-37.0); MCV 83.9 fL (80.0-100.0); MEAN PLATELET VOLUME 8.4 fL (7.4-10.4); MONOCYTES 8.8 % (2-11); NEUTROPHILS 71.3 % (40-80); PLATELET COUNT 290 10x3/uL (130-400); RBC 2.99 10x6/uL (4.20-6.10); RDW 14.3 % (11.5-14.5); WBC 8.4 10x3/uL (4.8-10.8)
[2019-05-05 21:52] LABS: INR 1.42 (0.85-1.17); PROTIME 16.8 SECONDS (11.6-15.0)
[2019-05-05 22:04] LABS: ALBUMIN 1.9 g/dL (3.4-5.0); ANION GAP 14.5 mmol/L (8-16); BILIRUBIN - TOTAL 0.35 mg/dL (0.2-1.3); CALCIUM 7.7 mg/dL (8.5-10.1); CARBON DIOXIDE 21.2 mmol/L (21.0-32.0); CREATININE - SERUM 1.1 mg/dL (0.6-1.3); MAGNESIUM - SERUM 1.5 mg/dL (1.8-2.4); POTASSIUM - SERUM 3.7 mmol/L (3.5-5.1); PROTEIN - SERUM 5.5 g/dL (6.4-8.2)
--- NOTE | 2019-05-05 22:19 | NUR ---
WHEN TAKING HS MEDS TO PT HE WAS UNRESPONSIVE. ATTEMPTED TO AROUSE WITH VERBAL STIMUL,COOL WATER TO THE FACE AND STERNAL RUB. CALLED A RAPID RESPONSE. CONT TO BE NONRESPONSIVE EXCEPT FOR HARD STERNAL RUN. DOES NOT SPEAK OR MOVE EXTREMITIES ON DEMAND. DR. SANON ARRIVE AND VERBAL ORDERS GIVEN. SPOUSE NOTIFIED AND STATED SHE WOULD BE ON HER WAY. ORDERS GIVEN TO TRANSFER TO ICU. SENT TO ICU AND ANTWAN ARTHUR RECIEVED REPORT.
[2019-05-06] VITALS (20 sets, daily range): BP systolic 88–120; BP diastolic 45–76; BMI 23.6
--- NOTE | 2019-05-06 03:02 | NUR ---
0100 PT AWAKE, PT IS VERY CONFUSED, PT STATES THAT HE IS HOME AND WANTING TO GET UP, PT WAS REORIENTED, AND PT ADVISED THAT HE UNDERSTOOD
[2019-05-06 05:39] LABS: BASOPHILS 0.5 % (0-2); EOSINOPHILS 13.5 % (0-7); HEMATOCRIT 25.4 % (42.0-54.0); HEMOGLOBIN 8.6 g/dL (13.5-17.5); IMMATURE GRANULOCYTES 0.6 % (0-5); LYMPHOCYTES 11.3 % (15-50); MCH 28.4 pg (26.0-34.0); MCHC 33.9 g/dL (31.0-37.0); MCV 83.8 fL (80.0-100.0); MEAN PLATELET VOLUME 8.6 fL (7.4-10.4); MONOCYTES 8.5 % (2-11); NEUTROPHILS 65.6 % (40-80); PLATELET COUNT 287 10x3/uL (130-400); RBC 3.03 10x6/uL (4.20-6.10); RDW 14.3 % (11.5-14.5); WBC 8.2 10x3/uL (4.8-10.8)
[2019-05-06 06:19] LABS: ANION GAP 13.1 mmol/L (8-16); CALCIUM 7.8 mg/dL (8.5-10.1); CARBON DIOXIDE 21.8 mmol/L (21.0-32.0); CREATININE - SERUM 1.2 mg/dL (0.6-1.3); PHENYTOIN (DILANTIN) 15.8 ug/mL (10.0-20.0); POTASSIUM - SERUM 3.9 mmol/L (3.5-5.1)
--- NOTE | 2019-05-06 06:54 | NUR ---
at bedside productive cough noticed
--- NOTE | 2019-05-06 07:00 | NUR ---
RECEIVED BEDSIDE REPORT ON PATIENT AND ASSUMED CARE. HEAD TO TOE ASSESSMENT COMPLETED. VSS. PATIENT ALERT AND ORIENTED X 4, MOVING ALL EXTREMITIES EQUALLY, PUPILS, PEARRLA AT 3 MM BRISK. IV INFUSING NS 75 CC/HR TO 22 GA IV WITH NO S/S OF INFILTRATION. LAFLEUR CATH WITH CLEAR YELLOW UOP.
--- NOTE | 2019-05-06 08:00 | NUR ---
PATIENTS AT BEDSIDE, UPDATED AND QUESTIONS ANSWERED.
--- NOTE | 2019-05-06 08:26 | NUR ---
PATIENT C/O NAUSEA, DR. KILLIAN CALLED FOR ORDER FOR ANTI-EMETIC, ORDERS ZOFRAN 4 MG q4h PRN. ZOFRAN GIVEN PER NOV.
--- NOTE | 2019-05-06 09:00 | NUR ---
PATIENT REPOSITIONED IN BED. VSS. MEDS GIVEN PER MAR.
--- NOTE | 2019-05-06 10:28 | NUR ---
PATIENT TO MRI
--- NOTE | 2019-05-06 11:31 | NUR ---
PATIENT BACK FROM MRI. REASSESSMENT COMPLETED. VSS.
--- NOTE | 2019-05-06 12:56 | NUR ---
PATIENT TURNED AND REPOSITIONED IN BED. AT BEDSIDE.
--- NOTE | 2019-05-06 14:21 | NUR ---
PATIENT TURNED AND REPOSITIONED IN BED. VSS.
--- NOTE | 2019-05-06 14:30 | CN ---
PATIENT NAME:FRANCISCA GRISOSM III MEDICAL RECORD: [id number] : [birth year] LOCATION:[id number] ADMIT DATE: 05/04/19 ACCOUNT: [id number] CONSULTING PHYSICIAN: JASON LOGAN MD REFERRING PHYSICIAN: MARY SANON MD DATE OF CONSULTATION: 05/05/2019 HISTORY OF PRESENT ILLNESS: An 88-year-old gentleman with known history of coronary artery disease, status post intervention to right coronary, previously by Dr. Panchal. He has a history of severe GI bleed this summer; history of aortic stenosis, moderate in nature with preserved LV systolic function; admitted with shortness of breath, fatigue, and increasing cough. Chest pain was not classic for his previous angina. He was noted to have left lower lobe infiltrate. We are asked to see him concerning his cardiovascular status. PAST MEDICAL HISTORY: Includes; 1. History of hypertension. 2. Aortic stenosis. 3. Coronary artery disease described above. 4. Hypothyroidism, on replacement. ALLERGIES: None known. MEDICATIONS: Include Plavix 75 daily, aspirin 81 daily, Altace 2.5 daily, Synthroid 50 mcg daily, and Proscar 5 daily. SOCIAL HISTORY: Recently been in rehab. He has had difficulty with ADLs due to multiple medical issues since December of last year, on a typical basis is quite active. Nonsmoker and nondrinker. REVIEW OF SYSTEMS: The patient reports easy bruising but reports no swollen glands. The patient reports no fever, no night sweats, no significant weight gain, no significant weight loss. No significant exercise tolerance. The patient reports no dry eyes, no irritation, no vision change. Patient reports no difficulty hearing and no ear pain. Patient reports no frequent nose bleeds or nose and sinus problems. Patient reports on arm pain on exertion. No shortness of breath while lying down. No history of heart murmur. Patient reports no cough, no wheezing or coughing up blood. Patient reports no abdominal pain, no vomiting. Normal appetite. No diarrhea and not vomiting blood. No nausea and no constipation. Patient reports no incontinence. No difficulty urinating. No hematuria. No increased frequency. Patient reports no muscle aches. No weakness, no arthralgias, no back pain. No swelling of the extremities. Patient reports no abnormal mole, no jaundice, no rashes. Reports no loss of consciousness. No weakness and no numbness. No seizures, dizziness, or headaches. The patient reports no depression, no sleep disturbance, feeling safe in a relationship and no alcohol abuse. Patient reports on fatigue. Reports no runny nose or sinus pressure. No itching, no hives, and no frequent sneezing. PHYSICAL EXAMINATION: GENERAL: Elderly gentleman, in no acute distress, appears stated age. VITAL SIGNS: Blood pressure 146/90. Pulse 95 and regular. HEENT: Normocephalic and atraumatic. NECK: No JVD or bruit. HEART: Regular. II/ systolic ejection murmur. CONSULT REPORT [id number] FRANCISCA GRISSOM III LUNGS: Good air excursion. Mildly decrease at right base. ABDOMEN: Soft. EXTREMITIES: Pulses 1+. There is no edema. IMPRESSION: Chest pain, somewhat atypical. He could have some angina given his overall underlying general debility, upper respiratory tract infection, increased catecholamine drive, etc. I agree with current management. Thank you for the consultation. TRANSINT:[id number] Voice Confirmation ID: [id number] DOCUMENT ID: [id number] JASON LOGAN MD at 1430 CC: [id number] DICTATION DATE: 05/05/19 1029 TRACTOR MECHANIC: 05/05/19 [address] [facility] [address] [place] [address]
--- NOTE | 2019-05-06 15:05 | NUR ---
REASSESSMENT COMPLETED. PATIENT RESTING QUIETLY. VSS.
--- NOTE | 2019-05-06 16:50 | NUR ---
PATIENT GIVEN DINNER TRAY. AT BEDSIDE ASSISTING PATIENT WITH MEAL.
--- NOTE | 2019-05-06 17:37 | NUR ---
IV 22 GA STARTED TO RIGHT FA X 1 ATTEMPT. POSITIVE BLOOD RETURN AND FLUSHES EASILY. NS INFUSING WITHOUT DIFFICULTY.
--- NOTE | 2019-05-06 19:30 | NUR ---
PT ALERT, CONFUSED, R PIV INTACT WITH NS @ 75CC/HR, LAFLEUR PATENT TO BSD, NO DISTRESS NOTED
--- NOTE | 2019-05-06 21:30 | NUR ---
PT SLEEPING WITH NO DISTRESS NOTED
--- NOTE | 2019-05-06 23:30 | NUR ---
RESTING QUIETLY, NO CHANGE IN STATUS
[2019-05-07] VITALS (23 sets, daily range): BP systolic 91–138; BP diastolic 43–75
--- NOTE | 2019-05-07 01:30 | NUR ---
PT AWAKE IN BED, CONFUSED, FOLLOWS COMMANDS
--- NOTE | 2019-05-07 03:30 | NUR ---
AROUSES EASILY, REMAINS CONFUSED, WILL CONT TO MONITOR
[2019-05-07 04:40] LABS: BASOPHILS 0.8 % (0-2); EOSINOPHILS 20.7 % (0-7); HEMATOCRIT 22.6 % (42.0-54.0); HEMOGLOBIN 7.8 g/dL (13.5-17.5); IMMATURE GRANULOCYTES 0.6 % (0-5); LYMPHOCYTES 10.6 % (15-50); MCH 29.3 pg (26.0-34.0); MCHC 34.5 g/dL (31.0-37.0); MEAN PLATELET VOLUME 9.3 fL (7.4-10.4); MONOCYTES 8.8 % (2-11); NEUTROPHILS 58.5 % (40-80); RBC 2.66 10x6/uL (4.20-6.10); RDW 14.4 % (11.5-14.5); WBC 7.7 10x3/uL (4.8-10.8)
[2019-05-07 04:55] LABS: PLATELET COUNT 166 10x3/uL (130-400)
[2019-05-07 05:07] LABS: ANION GAP 11.1 mmol/L (8-16); CALCIUM 7.6 mg/dL (8.5-10.1); CARBON DIOXIDE 23.3 mmol/L (21.0-32.0); CREATININE - SERUM 1.1 mg/dL (0.6-1.3); POTASSIUM - SERUM 4.4 mmol/L (3.5-5.1)
--- NOTE | 2019-05-07 06:02 | NUR ---
PT AWAKE, ALERT, CONFUSED TO TIME AND PLACE, STATES THIS IS LIKE A BAD DREAM, NO DISTRESS NOTED
--- NOTE | 2019-05-07 07:00 | NUR ---
RECEIVED BEDSIDE REPORT ON PATIENT AND ASSUMED CARE OF PATIENT. PATIENT RESTING QUEITLY, EASILY AROUSED BY VOICE, CONFUSED TO LOCATION, CAN STATE CITY AND YEAR. REORIENTED TO BEING AT NP IN ICU. VSS. HEAD TO TOE ASSESSMENT COMPLETED. IV 22 GA R FA INFUSING NS AT 75 CC/HR WITH NO S/S OF INFILTRATION. LAFLEUR CATH IN PLACE, CLEAR YELLOW URINE OUTPUT. CM - SR WITH BBB. BBS CLEAR AND EQUAL DIMINISHED IN BASES. BOWEL SOUNDS ACTIVE X 4.
--- NOTE | 2019-05-07 07:57 | NUR ---
DR. KILLIAN AT ROOM UPDATED AND EXAMINES PATIENT.
--- NOTE | 2019-05-07 08:58 | NUR ---
PATIENT ATE APPROXIMATELY 80% OF BREAKFAST AND DRANK 240 CC OF MILK.
--- NOTE | 2019-05-07 09:13 | NUR ---
PATIENT PLACED ON BEDPAN, HAS SMALL SOFT BROWN BM. CLEANED AND REPOSITIONED IN BED. VSS.
--- NOTE | 2019-05-07 10:06 | NUR ---
URINE COLLECTED AND SENT TO LAB.
--- NOTE | 2019-05-07 11:04 | NUR ---
REASSESSMENT COMPLETE. VSS. TURNED AND REPOSITIONED IN BED.
--- NOTE | 2019-05-07 12:02 | NUR ---
PATIENTS AT BEDSIDE, UPDATED AND QUESTIONS ANSWERED. VSS. ASSISTING PATIENT WITH LUNCH.
--- NOTE | 2019-05-07 13:00 | NUR ---
PT RESTING AT THIS TIME, VSS, CALL LIGHTIN REACH
--- NOTE | 2019-05-07 15:00 | NUR ---
REASSESSMENT COMPLETE, NO CHANGES NOTED, SM BM AT THIS TIME, WILL CON'T TO MONITOR
--- NOTE | 2019-05-07 17:00 | NUR ---
FAMILY AT BEDSIDE, UPDATE GIVEN
--- NOTE | 2019-05-07 19:03 | MORECARE ---
CASE MANAGEMENT DISCHARGE SUMMARY PATIENT: FRANCISCA GRISSOM III UNIT: [id number] ADM DATE: 05/04/19 AGE: 88 : 28 SEX: M ROOM/BED: D.2302 AUTHOR: ARSENIO JOSHUA PHYSICIAN: REFERRING PHYSICIAN: MARY SANON MD DATE OF SERVICE: 05/07/19 Discharge Plan Patient Name: FRANCISCA GRISSOM [facility] [facility] 1930 Planned Disposition: Home Anticipated Discharge Date: Discharge Date: Expected LOS: Initial Reviewer: [email or web address] Initial Review Date: 05/07/2019 Generated: 05/07/19 8:03 pm Patient Name: FRANCISCA GRISSOM Page [id number] at 1903 All edits/amendments must be made on the electronic document DICTATION DATE: 05/07/191902 COMPUTER LAB ASSISTANT: ESPERANZA 05/07/191902 RPT#: [id number] DC DATE: STATUS: ADM IN [facility] [address] [place] [address] END OF REPORT
--- NOTE | 2019-05-07 19:09 | MORECARE ---
CASE MANAGEMENT DISCHARGE SUMMARY PATIENT: FRANCISCA GRISSOM [facility] UNIT: [id number] ADM DATE: 05/04/19 AGE: 88 : 28 SEX: M ROOM/BED: D.2302 AUTHOR: JOSIANE,DOC PHYSICIAN: REFERRING PHYSICIAN: MARY SANON MD DATE OF SERVICE: 05/07/19 Discharge Plan Patient Name: FRANCISCA GRISSOM Facility: [facility]:[place] : 1930 Planned Disposition: Home Anticipated Discharge Date: Discharge Date: Expected LOS: Initial Reviewer: [id number] Initial Review Date: 05/07/2019 Generated: 05/07/19 8:09 pm Comments DCP- Discharge Planning Updated by [id number]: Mirna Slaughter on 05/07/19 6:[address] Patient Name: FRANCISCA GRISSOM Admission Status: ER Accout number: [id number] Admission Date: 05-04-2019 : 1930 Admission Diagnosis:PNEUMONIA, UNSPECIFIED ORGANISM Attending: MARY SANON Current LOS: 3 Anticipated DC Date: Planned Disposition: Home Primary Insurance: MEDICARE A & B Discharge Planning Comments: CM met with patient and spouse (Juan Antonio Hampton) at bedside after explaining CM role and obtaining verbal consent. Patient lives at home with his where he is partially dependent of his care and plans to return there upon discharge. Spouse feels this would be a safe discharge. CM discussed availability / needs of home health and medical equipment. Juan Antonio Hampton states that they have [facility] and plan to resume care with them upon discharge. RAVINDRA signed. Denies any discharge needs at this time. Patient will have his drive him home upon discharge. CM will continue to follow and assist as needed with discharge planning / needs. Paint Line Production Supervisor: Mirna Slaughter DCPIA - Discharge Planning Initial Assessment Updated by [id number]: Mirna Slaughter on 05/07/19 7:03 pm * Is the patient Alert and Oriented? Yes * How many steps to enter\exit or inside your home? * PCP CONSTANTIN * Pharmacy [facility] * Preadmission Environment Home with Family * ADLs Partial Dependent * Partial ADLs (Assistance needed) Ambulation Bathing Dressing Eating Medication Management Toileting Transfers * Other Equipment WALKER, W/C, GAIT BELT, SC * List name and contact numbers for known caregivers / representatives who currently or will assist patient after discharge: JUAN ANTONIO HAMPTON - SPOUSE- [phone], * Verbal permission to speak to the caregivers and representatives has been obtained from the patient. Yes * Community resources currently utilized Home Health * Please name any agencies selected above. [facility] * Additional services required to return to the preadmission environment? No * Can the patient safely return to the preadmission environment? Yes * Has this patient been hospitalized within the prior 30 days at any hospital? No Coverage Notice Reviewer: [id number] Viktor Slaughter Notice Issued Date-Time: 05/07/2019 13:07 Notice Type: Patient Choice Letter Notice Delivered To: Family Member Relationship to Patient: Spouse Job Recruiter Name: juan antonio hampton Delivery Method: HAND - Hand Delivered Manjula Days: Prior Verbal Notification: Recipient Understood Notice: Yes Recipient Signature: Yes Med Rec Note Co-signed by Attending: Coverage Notice Comment: Last DP export: 05/07/19 6:03 p Patient Name: FRANCISCA GRISSOM Page [id number] at 1909 All edits/amendments must be made on the electronic document DICTATION DATE: 05/07/191908 PROGRAM SERVICES PLANNER: ESPERANZA 05/07/191908 RPT#: [id number] DC DATE: STATUS: ADM IN [facility] [address] [place] [address] END OF REPORT
--- NOTE | 2019-05-07 20:59 | NUR ---
[facility] AND H REPORTED TO DR. SNYDER, NO NEW ORDERS RECEIVED AT THIS TIME. LAB FOR AM.
[2019-05-08] VITALS (24 sets, daily range): BP systolic 88–138; BP diastolic 45–66
[2019-05-08 04:40] LABS: BASOPHILS 0.7 % (0-2); EOSINOPHILS 19.3 % (0-7); HEMATOCRIT 25.4 % (42.0-54.0); HEMOGLOBIN 8.7 g/dL (13.5-17.5); IMMATURE GRANULOCYTES 0.6 % (0-5); LYMPHOCYTES 11.8 % (15-50); MCH 28.8 pg (26.0-34.0); MCHC 34.3 g/dL (31.0-37.0); MCV 84.1 fL (80.0-100.0); MONOCYTES 7.3 % (2-11); NEUTROPHILS 60.3 % (40-80); RBC 3.02 10x6/uL (4.20-6.10); RDW 14.2 % (11.5-14.5); WBC 8.9 10x3/uL (4.8-10.8)
[2019-05-08 04:53] LABS: PLATELET COUNT 298 10x3/uL (130-400)
[2019-05-08 04:59] LABS: ALBUMIN 1.8 g/dL (3.4-5.0); ANION GAP 11.6 mmol/L (8-16); BILIRUBIN - TOTAL 0.27 mg/dL (0.2-1.3); CALCIUM 7.6 mg/dL (8.5-10.1); CREATININE - SERUM 1.1 mg/dL (0.6-1.3); PROTEIN - SERUM 5.3 g/dL (6.4-8.2)
[2019-05-08 05:05] LABS: POTASSIUM - SERUM 3.6 mmol/L (3.5-5.1)
--- NOTE | 2019-05-08 07:00 | NUR ---
SHIFT ASSESSMENT COMPLETED. PT CARE ASSUMED. MONITORS ON AND WORKING, VITALS STABLE. CALL LIGHT WITHIN REACH, LAFLEUR CATH DRAINING CLEAR YELLOW URINE, CALL LIGHT WITHIN REACH, SEE FLOW SHEET FOR FURTHER DETAILS, WILL CONTINUE TO OBSERVE.
--- NOTE | 2019-05-08 07:54 | NUR ---
Nutrition follow-up: Diet: Regular as tolerated PO intake ~75% of some meals Labs reviewed Wt: 144# +BM Pt with possible TIA RDN following.
--- NOTE | 2019-05-08 09:00 | NUR ---
PT SITTING UP IN BED EATING BREAKFAST, AT BEDSIDE ASSISTING PT WITH EATING, MONITORS ON AND WORKING, VITALS STABLE. CALL LIGHT WITHIN REACH WILL CONTINUE TO OBSERVE.
--- NOTE | 2019-05-08 11:00 | NUR ---
NO CHANGES, PT RESTING COMFORTABLY. MONITORS ON AND WORKING, SEE FLOW SHEET FOR FURTHER DETAILS. WILL CONTINUE TO OBSERVE.
--- NOTE | 2019-05-08 15:15 | NUR ---
REASSESSMENT COMPLETE, NO CHANGES NOTED, WILL CON'T TO MONITOR
--- NOTE | 2019-05-08 17:00 | NUR ---
FAMILY AT BEDSIDE, UPDATE GIVEN, WILL CON'T TO MONITOR
[2019-05-09] VITALS (13 sets, daily range): BP systolic 100–147; BP diastolic 42–70
[2019-05-09 04:06] LABS: BASOPHILS 0.7 % (0-2); EOSINOPHILS 20.1 % (0-7); HEMATOCRIT 25.7 % (42.0-54.0); HEMOGLOBIN 8.7 g/dL (13.5-17.5); IMMATURE GRANULOCYTES 0.5 % (0-5); LYMPHOCYTES 11.9 % (15-50); MCH 28.2 pg (26.0-34.0); MCHC 33.9 g/dL (31.0-37.0); MCV 83.4 fL (80.0-100.0); MEAN PLATELET VOLUME 8.7 fL (7.4-10.4); MONOCYTES 9.7 % (2-11); NEUTROPHILS 57.1 % (40-80); PLATELET COUNT 289 10x3/uL (130-400); RBC 3.08 10x6/uL (4.20-6.10); RDW 14.2 % (11.5-14.5); WBC 8.2 10x3/uL (4.8-10.8)
[2019-05-09 04:22] LABS: % SATURATION 13 % (15-55); IRON 18 ug/dl (35-150); TOTAL IRON BIND CAPACITY 135 ug/dl (260-445); UNSAT IRON BIND CAPACITY 117 ug/dl (150-375)
[2019-05-09 04:44] LABS: ANION GAP 9.3 mmol/L (8-16); CALCIUM 7.4 mg/dL (8.5-10.1); CARBON DIOXIDE 24.3 mmol/L (21.0-32.0); CREATININE - SERUM 1.1 mg/dL (0.6-1.3); POTASSIUM - SERUM 3.6 mmol/L (3.5-5.1)
--- NOTE | 2019-05-09 07:00 | NUR ---
PT REPORT RECEIVED FROM THEATRICAL SCENIC DESIGNER NURSE. VSS. WILL CONTINUE TO MONITOR
--- NOTE | 2019-05-09 08:52 | NUR ---
Nutrition follow-up: Pt still with weakness Diet: Regular as tolearted PO intake ~25% average of meals; assists pt with meals Labs reviewed; Na low Wt: 145# RDN following.
--- NOTE | 2019-05-09 09:00 | NUR ---
PHYSICAL THERAPY IN ROOM. PT UP IN CHAIR. TOLERATED WELL. WILL CONTINUE TO MONITOR
--- NOTE | 2019-05-09 10:49 | NUR ---
REPORT CALLED TO MED 2. PREPARING TO TRANSFER PT OVER
--- NOTE | 2019-05-09 11:44 | NUR ---
PATIENT IS HERE FROM ICU. HE IS RESTING QUIETLY AT THIS TIME.
--- NOTE | 2019-05-09 19:58 | NUR ---
REPORT RECIEVED AND ROUNDING COMPLETE. PATIENT IS LAYING IN BED WITH EYES CLOSED. PATIENTS BED ALARM IS ON. PATIENT HAS A RIGHT FOREARM PIV THAT IS RUNNING NORMAL SAILE AT KVO. PIV IS SHOWING NO S/SX OF INFILTRATION OR INFECTION AT THIS TIME. PATIENT IS RECIEVING O2 AT 3L PER NASAL CANNULA. ASSESMENT COMPLETE. PATIENT IS SHOWING NO S/SX OF DISTRESS AT THIS TIME. CALL LIGHT WITHIN REACH AND BED IN LOWEST LOCKED POSITION.
[2019-05-10] VITALS: BP 137/52
--- NOTE | 2019-05-10 03:18 | NUR ---
I have reviewed this patient and I concur with the Shift Assessment completed by the Licensed Practical Nurse today this shift.
[2019-05-10 04:00] VITALS: BP 141/65
[2019-05-10 05:19] LABS: BASOPHILS 0.8 % (0-2); EOSINOPHILS 19.4 % (0-7); HEMATOCRIT 27.3 % (42.0-54.0); HEMOGLOBIN 9.2 g/dL (13.5-17.5); IMMATURE GRANULOCYTES 0.3 % (0-5); LYMPHOCYTES 13.3 % (15-50); MCH 28.6 pg (26.0-34.0); MCHC 33.7 g/dL (31.0-37.0); MCV 84.8 fL (80.0-100.0); MEAN PLATELET VOLUME 9.1 fL (7.4-10.4); MONOCYTES 8.9 % (2-11); NEUTROPHILS 57.3 % (40-80); PLATELET COUNT 309 10x3/uL (130-400); RBC 3.22 10x6/uL (4.20-6.10); RDW 14.4 % (11.5-14.5); WBC 9.2 10x3/uL (4.8-10.8)
[2019-05-10 05:26] LABS: CALC OSMOLALITY 256 mosm/kg (275-300); CALCIUM 8.2 mg/dL (8.5-10.1); CHLORIDE - SERUM 98 mmol/L (98-107); CREATININE - SERUM 0.9 mg/dL (0.6-1.3); GLUCOSE 89 mg/dL (74-106); POTASSIUM - SERUM 3.7 mmol/L (3.5-5.1); SODIUM 129 mmol/L (136-145); UREA NITROGEN 10 mg/dL (7-18); eGFR NON AFRICAN AMERICAN 84 mL/min (90-120)
--- NOTE | 2019-05-10 07:48 | NUR ---
PATIENT IS LAYING ON HIS BACK IN BED. HE HAS BEEN ASLEEP ALL NIGHT ACCORDING TO REPORT. YESTERDAY THE DID APPROACH ME AND REPORT THAT SHE IS VERY CONCERNED ABOUT HER AND THAT HE HAS BEEN STATING THAT LIFE HAS GOTTEN TOO HARD FOR HIM, AND HE DOSNT WANT TO FIGHT ANYMORE. SHE STATES THAT SHE WANTS TO SPEAK TO HER DR ABOUT OPTIONS FOR HIM, AND MAY ASK THEIR PAD EXTRACTION TENDER TO COME TALK TO HER AGAIN TODAY.
[2019-05-10 08:00] VITALS: BP 144/57
--- NOTE | 2019-05-10 08:04 | NUR ---
DR KILLIAN VERBALLY REQUEST TO BE SURE PHYSICAL THERAPY GETS THE PATIENT UP TODAY.
--- NOTE | 2019-05-10 08:05 | NUR ---
PATIENT IS ON A 1000ML FLUID RESTRICTION FOR EVERY 24 HOURS.
[2019-05-10 11:00] VITALS: BP 134/54
[2019-05-10 16:23] VITALS: BP 136/55
--- NOTE | 2019-05-10 19:39 | NUR ---
REPORT RECIEVED AND ROUNDING COMPLETE. PATIENT LAYING IN BED IN SUPINE POSITION, EYES CLOSED BREATING SHALLOW AND EVEN. PATIENT IS RECIEVING 02 AT 3L VIA NASAL CANNULA. PATIENT HAS A RIGHT FOREARM PIV RUNNING NS. PIV IS SHOWING NO S/SX OF INFECTION OR INFILTRATION AT THIS TIME. PATIENT HAS A LAFLEUR WILL CONCETRATED URINE IN BAG. PATIENT IS SHOWING NO S/SX OF DISTRESS AT THIS TIMEE. BED ALARM OS ON AND SCD'S ARE ON AND RUNNING. CALL LIGHT IS WITHIN REACH AND BED IN LOWEST LOCKED POSITION.
[2019-05-10 20:00] VITALS: BP 116/49; BP 138/48
[2019-05-11] VITALS: BP 149/64
--- NOTE | 2019-05-11 02:38 | NUR ---
I have reviewed this patient and I concur with the Shift Assessment completed by the Licensed Practical Nurse today this shift.
[2019-05-11 04:00] VITALS: BP 148/70
[2019-05-11 05:05] LABS: BASOPHILS 0.6 % (0-2); EOSINOPHILS 16.2 % (0-7); HEMATOCRIT 31.3 % (42.0-54.0); HEMOGLOBIN 10.7 g/dL (13.5-17.5); IMMATURE GRANULOCYTES 0.4 % (0-5); LYMPHOCYTES 11.6 % (15-50); MCH 28.8 pg (26.0-34.0); MCHC 34.2 g/dL (31.0-37.0); MCV 84.1 fL (80.0-100.0); MEAN PLATELET VOLUME 8.7 fL (7.4-10.4); MONOCYTES 9.1 % (2-11); NEUTROPHILS 62.1 % (40-80); PLATELET COUNT 272 10x3/uL (130-400); RBC 3.72 10x6/uL (4.20-6.10); RDW 14.7 % (11.5-14.5); WBC 11.3 10x3/uL (4.8-10.8)
[2019-05-11 05:52] LABS: ALBUMIN 1.7 g/dL (3.4-5.0); ALKALINE PHOSPHATASE 67 U/L (46-116); ALT (SGPT) 18 U/L (10-68); BILIRUBIN - TOTAL 0.33 mg/dL (0.2-1.3); CALC OSMOLALITY 253 mosm/kg (275-300); CALCIUM 8.3 mg/dL (8.5-10.1); CARBON DIOXIDE 24.1 mmol/L (21.0-32.0); CHLORIDE - SERUM 95 mmol/L (98-107); CREATININE - SERUM 0.9 mg/dL (0.6-1.3); GLUCOSE 94 mg/dL (74-106); POTASSIUM - SERUM 3.5 mmol/L (3.5-5.1); PROTEIN - SERUM 5.7 g/dL (6.4-8.2); SODIUM 127 mmol/L (136-145); T4 THYROXIN - FREE 1.01 ng/dL (0.76-1.46); THYROID STIMULATING HORMONE 6.77 uIU/mL (0.36-3.74); UREA NITROGEN 9 mg/dL (7-18); eGFR NON AFRICAN AMERICAN 84 mL/min (90-120)
--- NOTE | 2019-05-11 08:02 | NUR ---
PT RESTING IN BED. AROUSED BY VERBAL STIMULI. AAOX1. NO S/S OF ACUTE DISTRESS. CL IN PLACE.
[2019-05-11 09:11] VITALS: BP 150/63
[2019-05-11 11:05] VITALS: Ht 167.6 cm; Wt 69.8 kg
--- NOTE | 2019-05-11 16:59 | NUR ---
PT RESTING IN BED. CHANGED CLEANED AND TURNED TO R SIDE. OFFLOADED WITH A PILLOW. HEELS BRIDGED. NO S/S OF ACUTE DISTRESS. CL IN PLACE.
[2019-05-11 17:06] VITALS: BP 119/49
--- NOTE | 2019-05-11 19:30 | NUR ---
REPORT RECEIVED FROM DAY SHIFT, PT CARE ASSUMED. INTRODUCED SELF AND WROTE NAME ON BOARD, PT LYING IN BED WATCHING TV. DENIES PAIN OR ANY OTHER NEEDS AT THIS TIME. BED IN LOWEST POSITION, SR X2, CALL LIGHT WITHIN REACH. WILL CONTINUE TO MONITOR.
[2019-05-12] VITALS: BP 113/49
--- NOTE | 2019-05-12 03:37 | NUR ---
PT LYING IN BED WITH EYES CLOSED, RR EVEN AND NONLABORED, NO S/S OF DISTRESS, EASILY AROUSED BY VOICE. DENIES PAIN OR ANY NEEDS AT THIS TIME. BED IN LOWEST POSITION, CALL LIGHT WITHIN REACH, WILL CONTINUE TO MONITOR.
[2019-05-12 04:00] VITALS: BP 116/56
[2019-05-12 05:03] LABS: BASOPHILS 0.6 % (0-2); EOSINOPHILS 19.2 % (0-7); HEMATOCRIT 26.9 % (42.0-54.0); HEMOGLOBIN 9.2 g/dL (13.5-17.5); IMMATURE GRANULOCYTES 0.3 % (0-5); LYMPHOCYTES 11.7 % (15-50); MCHC 34.2 g/dL (31.0-37.0); MEAN PLATELET VOLUME 8.7 fL (7.4-10.4); MONOCYTES 9.6 % (2-11); NEUTROPHILS 58.6 % (40-80); PLATELET COUNT 320 10x3/uL (130-400); RBC 3.28 10x6/uL (4.20-6.10); RDW 14.6 % (11.5-14.5); WBC 9.6 10x3/uL (4.8-10.8)
[2019-05-12 05:17] LABS: CALC OSMOLALITY 257 mosm/kg (275-300); CARBON DIOXIDE 25.9 mmol/L (21.0-32.0); CHLORIDE - SERUM 97 mmol/L (98-107); CREATININE - SERUM 0.9 mg/dL (0.6-1.3); GLUCOSE 101 mg/dL (74-106); POTASSIUM - SERUM 3.4 mmol/L (3.5-5.1); SODIUM 129 mmol/L (136-145); UREA NITROGEN 11 mg/dL (7-18); eGFR NON AFRICAN AMERICAN 84 mL/min (90-120)
--- NOTE | 2019-05-12 06:18 | NUR ---
PT LYING IN BED, WITH EYES CLOSED, RR EVEN AND NONLABORED, NO S/S DISTRESS, EASILY AROUSES TO VOICE. AM MEDS GIVEN, BATH AND LINEN CHANGE THIS AM. OFFERED WATER, REFUSED. BED IN LOWEST POSITION, SR X2, CALL LIGHT WITHIN REACH. WILL CONTINUE TO MONITOR.
--- NOTE | 2019-05-12 07:30 | NUR ---
LETHARGIC. RESPONDS TO STIMULI. SPOUSE AT BEDSIDE. SPOUSE STATES, "HE HAS GIVEN UP BUT I'M NOT GOING TO LET HIM. THERE IS NOTHING MEDICALLY WRONG WITH HIM THAT CANNOT BE FIXED. YOU MAY THINK I'M MEAN BUT THAT IS FINE." INFORM SPOUSE NO JUDGEMENT MADE. NONLABORED BREATHING. DENIES ANY NEEDS AT THIS TIME. CONTINUE PLAN OF CARE AND SAFETY PRECAUTIONS.
[2019-05-12 08:42] VITALS: BP 123/56
[2019-05-12 12:59] VITALS: BP 123/52
--- NOTE | 2019-05-12 13:27 | NUR ---
DNR PAPER SIGNED ON CHART BY .
[2019-05-12 17:22] VITALS: BP 100/49
--- NOTE | 2019-05-12 19:15 | NUR ---
RERSTING WITH EYES CLOSED AND BARELY AROUSES SKIN WARM AND DRY NO IV LAFLEUR TO GRAVITY WILL TURN Q2 CALL LIGHT IS IN REACH AND BED IS LOW AND LOCKED WITH SR X2
[2019-05-12 20:00] VITALS: BP 136/68
[2019-05-13] VITALS: BP 123/61
[2019-05-13 04:00] VITALS: BP 109/64
[2019-05-13 04:31] LABS: BASOPHILS 0.6 % (0-2); EOSINOPHILS 21.8 % (0-7); HEMATOCRIT 26.6 % (42.0-54.0); IMMATURE GRANULOCYTES 0.2 % (0-5); LYMPHOCYTES 10.9 % (15-50); MCHC 33.8 g/dL (31.0-37.0); MCV 82.6 fL (80.0-100.0); MEAN PLATELET VOLUME 8.8 fL (7.4-10.4); MONOCYTES 7.5 % (2-11); PLATELET COUNT 359 10x3/uL (130-400); RBC 3.22 10x6/uL (4.20-6.10); RDW 14.6 % (11.5-14.5); WBC 9.6 10x3/uL (4.8-10.8)
[2019-05-13 04:41] LABS: CALC OSMOLALITY 255 mosm/kg (275-300); CALCIUM 8.1 mg/dL (8.5-10.1); CARBON DIOXIDE 25.8 mmol/L (21.0-32.0); CHLORIDE - SERUM 97 mmol/L (98-107); CREATININE - SERUM 0.9 mg/dL (0.6-1.3); GLUCOSE 87 mg/dL (74-106); POTASSIUM - SERUM 3.5 mmol/L (3.5-5.1); SODIUM 128 mmol/L (136-145); UREA NITROGEN 13 mg/dL (7-18); eGFR NON AFRICAN AMERICAN 84 mL/min (90-120)
--- NOTE | 2019-05-13 04:42 | NUR ---
I have reviewed this patient and I concur with the Shift Assessment completed by the Licensed Practical Nurse today this shift.
--- NOTE | 2019-05-13 07:45 | NUR ---
PT RESTING IN BED WITH EYES CLOSED. REFUSED TO LET THE PHYSICS TUTOR OBTAIN VITALS. DENIES NEEDS AT THIS TIME. WILL CONTINUE TO MONITOR.
--- NOTE | 2019-05-13 08:55 | NUR ---
PT HAS REFUSED ALL MORNING MEDS AND REFUSED PLACEMENT OF NEW IV.
--- NOTE | 2019-05-13 10:58 | NUR ---
ATTEMPTED TO COLLECT URINE SAMPLE VIA LAFLEUR CATHETER PORT, PT DENIED STATED "NO I DONT WANT YOU TO, I WISH YALL WOULD JUST GET OUT OF HERE."
--- NOTE | 2019-05-13 12:23 | NUR ---
Nutrition Follow-up: Pt reports that he does not remember if he ate breakfast or drank Ensure this AM; PO intake record reports 0% of breakfast eaten but 100% of Ensure drank this AM. No family present. Diet: Regular, vanilla Ensure with each meal PO intake: 15% avg x 6 meals Wt: 154# Last BM: 05/12 Labs noted: Ca 8.1, Na 128 Meds noted: sodium chloride Continue current diet as tolerated. [place] food preferences within diet restrictions. RD following.
--- NOTE | 2019-05-13 12:45 | NUR ---
PT RESTING IN BED WITH EYES OPEN, AT THE BEDSIDE. DENIES NEEDS AT THIS TIME.
--- NOTE | 2019-05-13 13:57 | NUR ---
PT RESTING IN BED WITH AT THE BEDSIDE. MANNY NOLAND AND MYSELF APPROACHED HIM ABOUT TURNING HIM AND CHANGING HIM AND HE REFUSED BUT TALKED TO HIM INTO LETTING US. TURNED ONTO LEFT SIDE AND CLEANED HIM UP. WILL CONTINUE TO MONITOR.
[2019-05-13 15:31] VITALS: BP 121/52
--- NOTE | 2019-05-13 15:54 | MORECARE ---
CASE MANAGEMENT DISCHARGE SUMMARY PATIENT: FRANCISCA GRISSOM [facility] UNIT: [id number] ADM DATE: 05/04/19 AGE: 88 : 28 SEX: M ROOM/BED: D.2103 AUTHOR: JOSIANE,DOC PHYSICIAN: REFERRING PHYSICIAN: MARY SANON MD DATE OF SERVICE: 05/13/19 Discharge Plan Patient Name: FRANCISCA GRISSOM Facility: [facility]:[place] : 1930 Planned Disposition: Home Anticipated Discharge Date: Discharge Date: Expected LOS: Initial Reviewer: [id number] Initial Review Date: 05/07/2019 Generated: 05/13/19 4:53 pm DCP- Discharge Planning Updated by [id number]: Mirna Slaughter on 05/07/19 6:[address] Patient Name: FRANCISCA GRISSOM Admission Status: ER Accout number: [id number] Admission Date: 05-04-2019 : 1930 Admission Diagnosis:PNEUMONIA, UNSPECIFIED ORGANISM Attending: MARY SANON Current LOS: 3 Anticipated DC Date: Planned Disposition: Home Primary Insurance: MEDICARE A & B Discharge Planning Comments: CM met with patient and spouse (Juan Antonio Hampton) at bedside after explaining CM role and obtaining verbal consent. Patient lives at home with his where he is partially dependent of his care and plans to return there upon discharge. Spouse feels this would be a safe discharge. CM discussed availability / needs of home health and medical equipment. Juan Antonio Hampton states that they have [facility] and plan to resume care with them upon discharge. RAVINDRA signed. Denies any discharge needs at this time. Patient will have his drive him home upon discharge. CM will continue to follow and assist as needed with discharge planning / needs. Cable Strander: Mirna Slaughter DCPIA - Discharge Planning Initial Assessment Updated by [id number]: Mirna Slaughter on 05/07/19 7:03 pm * Is the patient Alert and Oriented? Yes * How many steps to enter\exit or inside your home? * PCP CONSTANTIN * Pharmacy [facility] * Preadmission Environment Home with Family * ADLs Partial Dependent * Partial ADLs (Assistance needed) Ambulation Bathing Dressing Eating Medication Management Toileting Transfers * Other Equipment WALKER, W/C, GAIT BELT, SC * List name and contact numbers for known caregivers / representatives who currently or will assist patient after discharge: JUAN ANTONIO HAMPTON - SPOUSE- [phone], * Verbal permission to speak to the caregivers and representatives has been obtained from the patient. Yes * Community resources currently utilized Home Health * Please name any agencies selected above. [facility] * Additional services required to return to the preadmission environment? No * Can the patient safely return to the preadmission environment? Yes * Has this patient been hospitalized within the prior 30 days at any hospital? No Coverage Notice Reviewer: [id number] Viktor Slaughter Notice Issued Date-Time: 05/07/2019 13:07 Notice Type: Patient Choice Letter Notice Delivered To: Family Member Relationship to Patient: Spouse Travel Assistant Name: juan antonio hampton Delivery Method: HAND - Hand Delivered Manjula Days: Prior Verbal Notification: Recipient Understood Notice: Yes Recipient Signature: Yes Med Rec Note Co-signed by Attending: Coverage Notice Comment: Reviewer: [id number] Viktor Kennedy Notice Issued Date-Time: 05/13/2019 12:10 Notice Type: IM Discharge Notice Notice Delivered To: Family Member Relationship to Patient: Spouse Travel Assistant Name: JUAN ANTONIO FRANZ Delivery Method: HAND - Hand Delivered Manjula Days: Prior Verbal Notification: Recipient Understood Notice: Yes Recipient Signature: Yes Med Rec Note Co-signed by Attending: Coverage Notice Comment: Last DP export: 05/07/19 6:10 p Patient Name: FRANCISCA GRISSOM Page [id number] at 1554 All edits/amendments must be made on the electronic document DICTATION DATE: 05/13/191552 IDENTIFICATION TECHNICIAN: ESPERANZA 05/13/191552 RPT#: [id number] DC DATE: STATUS: ADM IN [facility] [address] [facility] [place] [address] END OF REPORT
--- NOTE | 2019-05-13 16:01 | NUR ---
PTS FOUND OUT HE REFUSED ALL MORNING MEDS AND WAS VERY UPSET THAT HE DIDNT HAVE HIS PLAVIX AND SAID THAT SHE KNEW SHE COULD GET HIM TO TAKE IT. AFTER SPEAKING WITH NURSE MANUFACTURING TEACHER ANGEL I WAS INSTRUCTED TO GO AHEAD AND PULL IT AND LET HIS TRY TO GET HIM TO TAKE IT. AFTER MIXING IT WITH ICE CREAM WE WERE ABLE TO GET IT DOWN, ALONG WITH HIS OTHER SCHEDULED AFTERNOON MEDICATIONS.
--- NOTE | 2019-05-13 16:04 | MORECARE ---
CASE MANAGEMENT DISCHARGE SUMMARY PATIENT: FRANCISCA GRISSOM III UNIT: [id number] ADM DATE: 05/04/19 AGE: 88 : 29 SEX: M ROOM/BED: D.2103 AUTHOR: ARSENIO JOSHUA PHYSICIAN: REFERRING PHYSICIAN: MARY SANON MD DATE OF SERVICE: 05/13/19 Discharge Plan Patient Name: FRANCISCA GRISSOM [facility] : 1930 Planned Disposition: Assisted Facility Anticipated Discharge Date: Discharge Date: Expected LOS: Initial Reviewer: [id number] Initial Review Date: 05/07/2019 Generated: 05/13/19 5:03 pm Comments DCP- Discharge Planning Updated by [id number]: Sheldon Kennedy on 05/13/19 3:[address] Patient Name: FRANCISCA GRISSOM Admission Status: ER Accout number: [id number] Admission Date: 05-04-2019 : 1930 Admission Diagnosis:PNEUMONIA, UNSPECIFIED ORGANISM Attending: MARY SANON Current LOS: 9 Anticipated DC Date: Planned Disposition: Home Primary Insurance: MEDICARE A & B Discharge Planning Comments: CM RECEIVED HOSPICE ORDER, MET WITH PT AND SPOUSE IN ROOM. FRANCISCA GRISSOM provided verbal consent to discuss current and ongoing needs with/in the presence of: SPOUSE, JUAN ANTONIO HAMPTON. JUAN ANTONIO HAMPTON [facility]PORTS [facility] JUAN ANTONIO HAMPTON REPORTS PT TOLD THE DOCTOR THIS MORNING HE HAS GIVEN UP AND IS READY FOR HOSPICE. THEY ARE CONSIDERING [facility] PT WAS ON THE BOARD FOR A COUPLE OF YEARS FOR [facility] OR [facility] DR. KLEIN IS THE DOCTOR THERE. CM DISCUSSED HOSPICE OPTIONS, PROVIDERS AND LOCATIONS. PT REPORTS UNDERSTANDING HOSPICE. PT STATES "NO". CM ASKED PT TO CLAIRIFY HIS NO ANSWER, PT STATES HE DOES NOT WANT HOSPICE. PT'S SPOUSE TALKED TO PT AT LENGTH STATING THAT HE TOLD THE DOCTOR HE WANTS HOSPICE. PT STATES HE DOES NOT [facility] NOW. CM OFFERED TO HAVE HOSPICE COME AND PROVIDE FURTHER INFORMATION, PT STATES HE DOES NOT WANT TO TALK TO ANYONE ABOUT HOSPICE. PT'S INFORMED CM THAT SHE IS NOT GOING TO BE ABLE TO DO HOSPICE AT HOME SHE WOULD HAVE TO SELL FURNITURE TO GET A HOSPITAL BED IN THE HOME AND HIRE CAREGIVERS. CM DISCUSSED GOING TO [facility] FACILITY FOR HOSPICE OR REHAB. PT'S SPOUSE REPORTS PT WILL NOT GO BACK TO [facility] HE WAS THERE AND DID NOT RECEIVE GOOD CARE. SHE HAS HEARD A BAD REPORT ON [facility]. PT'S SPOUSE THINKS THAT PT COULD GO TO INPATIENT HOSPICE AT [facility]. CM EXPLAINED CRITERIA FOR INPATIENT HOSPICE AND THAT PT HAS REFUSED HOSPICE AT THIS TIME. CM FURTHER EXPLAINED TO PT AND SPOUSE THAT IF PT IS NOT WANTING HOSPICE, HE THEN MUST PARTICIPATE WITH CARE AND DECISIONS AND WILL MOST LIKELY NEED [facility] F[facility] FOR REHAB. PT'S SPOUSE INFORMED CM THAT SHE WILL DISCUSS OPTIONS WITH PT AND THE DOCTOR AND WILL LET CM KNOW WHAT THEY DECIDE. PT'S SPOUSE REPORTS THAT IF PT DOES NOT WANT HOSPICE, SHE WOULD LIKE PT TO HAVE [facility]PATIENT REHAB AT [facility]. CM EXPLAINED THAT PT WOULD NEED TO BE ABLE TO PARTICIPATE IN THREE HOURS OF PROGRESSIVE THERAPY PER DAY. PT'S REPORTS THEY KNOW OF THE PROGRAM AND THEY WILL BE ABLE TO HELP PT REGAIN FUNCTIONING. CM WAITING ON PT AND TO DECIDE REGARDING HOSPICE OR [facility] RE[facility] OR INPATIENT REHAB AT [facility]. Mangle Roll Operator: Sheldon Kennedy DCP- Discharge Planning Updated by [id number]: Mirna Slaughter on 05/07/19 6:[address] Patient Name: FRANCISCA GRISSOM Admission Status: ER Accout number: [id number] Admission Date: 05-04-2019 : 1930 Admission Diagnosis:PNEUMONIA, UNSPECIFIED ORGANISM Attending: MARY SANON Current LOS: 3 Anticipated DC Date: Planned Disposition: Home Primary Insurance: MEDICARE A & B Discharge Planning Comments: CM met with patient and spouse (Juan Antonio Hampton) at bedside after explaining CM role and obtaining verbal consent. Patient lives at home with his where he is partially dependent of his care and plans to return there upon discharge. Spouse feels this would be a safe discharge. CM discussed availability / needs of home health and medical equipment. Juan Antonio Hampton states that they have [facility] and plan to resume care with them upon discharge. RAVINDRA signed. Denies any discharge needs at this time. Patient will have his drive him home upon discharge. CM will continue to follow and assist as needed with discharge planning / needs. Mangle Roll Operator: Mirna Slaughter DCPIA - Discharge Planning Initial Assessment Updated by [id number]: Mirna Slaughter on 05/07/19 7:03 pm * Is the patient Alert and Oriented? Yes * How many steps to enter\\exit or inside your home? * PCP COSNTANTIN * Pharmacy [facility] * Preadmission Environment Home with Family * ADLs Partial Dependent * Partial ADLs (Assistance needed) Ambulation Bathing Dressing Eating Medication Management Toileting Transfers * Other Equipment WALKER, W/C, GAIT BELT, SC * List name and contact numbers for known caregivers / representatives who currently or will assist patient after discharge: JUAN ANTONIO HAMPTON - SPOUSE- [phone], * Verbal permission to speak to the caregivers and representatives has been obtained from the patient. Yes * Community resources currently utilized Home Health * Please name any agencies selected above. [facility] * Additional services required to return to the preadmission environment? No * Can the patient safely return to the preadmission environment? Yes * Has this patient been hospitalized within the prior 30 days at any hospital? No Coverage Notice Reviewer: [id number] - Mirna Slaughter Notice Issued Date-Time: 05/07/2019 13:07 Notice Type: Patient Choice Letter Notice Delivered To: Family Member Relationship to Patient: Spouse Control And Recovery Special Tactics Name: juan antonio hampton Delivery Method: HAND - Hand Delivered Manjula Days: Prior Verbal Notification: Recipient Understood Notice: Yes Recipient Signature: Yes Med Rec Note Co-signed by Attending: Coverage Notice Comment: Reviewer: [id number] - Sheldon Kennedy Notice Issued Date-Time: 05/13/2019 12:10 Notice Type: IM Discharge Notice Notice Delivered To: Family Member Relationship to Patient: Spouse Control And Recovery Special Tactics Name: JUAN ANTONIO FRANZ Delivery Method: HAND - Hand Delivered Manujla Days: Prior Verbal Notification: Recipient Understood Notice: Yes Recipient Signature: Yes Med Rec Note Co-signed by Attending: Coverage Notice Comment: Last DP export: 05/13/19 2:54 p Patient Name: FRANCISCA GRISSOM Page [id number] at 1604 All edits/amendments must be made on the electronic document DICTATION DATE: 05/13/191602 HARDWOOD SAWYER: ESPERANZA 05/13/19 160 RPT#: [id number] DC DATE: STATUS: ADM IN [facility] [address] [place] [address] END OF REPORT
[2019-05-13 20:00] VITALS: BP 141/61
[2019-05-14] VITALS: BP 141/52
--- NOTE | 2019-05-14 00:48 | NUR ---
RESTING IN BED EYES CLOSED,RESP UNLABORED BUT SHALLOW, LETHARGIC AROUSES TO VOICE, DENIES PAIN OR NEEDS AT THIS TIME, LAFLEUR CATH DRAINING YELLOW URINE, WILL MONITOR, SEE SHIFT ASSESSMENT
[2019-05-14 04:00] VITALS: BP 134/59
--- NOTE | 2019-05-14 07:30 | NUR ---
A/A/OX1 TO SELF. DENIES ANY PAIN AT PRESENT TIME. POSITIONED ON BACK WITH HOB ELEVATED. ASSESSMENT COMPLETED AND WILL CONTINUE POC. BED IN LOW LOCKED POSITION AND CALL LIGHT IN REACH. AT BEDSIDE.
--- NOTE | 2019-05-14 07:30 | NUR ---
A/A/OX4. REMAINS NPO FOR TESTING TODAY. DENIES ANY PAIN OR DISCOMFORT AT PRESENT TIME AND NO REQUESTS VOICED. ASSESSMENT COMPLETED AND WILL CONTINUE POC. IV PATENT TO LEFT HAND WITHOUT REDNESS OR EDEMA. BED IN LOW POSITION AND CALL LIGHT IN REACH.
[2019-05-14 08:31] VITALS: BP 114/52
[2019-05-14 11:49] VITALS: BP 125/55
--- NOTE | 2019-05-14 12:36 | MORECARE ---
CASE MANAGEMENT DISCHARGE SUMMARY PATIENT: FRANCISCA GRISSOM III UNIT: [id number] ADM DATE: 05/04/19 AGE: 88 : 28 SEX: M ROOM/BED: D.2103 AUTHOR: ARSENIO JOSHUA PHYSICIAN: REFERRING PHYSICIAN: MARY SANON MD DATE OF SERVICE: 05/14/19 Discharge Plan Patient Name: FRANCISCA GRISSOM [facility] [facility] 1930 Planned Disposition: [facility] Facility Anticipated Discharge Date: Discharge Date: Expected LOS: Initial Reviewer: [id number] Initial Review Date: 05/07/2019 Generated: 05/14/19 1:36 pm Comments DCP- Discharge Planning Updated by [id number]: Sheldon Kennedy on 05/13/19 3:[address] Patient Name: FRANCISCA GRISSOM Admission Status: ER Accout number: [id number] Admission Date: 05-04-2019 : 1930 Admission Diagnosis:PNEUMONIA, UNSPECIFIED ORGANISM Attending: MARY SANON Current LOS: 9 Anticipated DC Date: Planned Disposition: Home Primary Insurance: MEDICARE A & B Discharge Planning Comments: CM RECEIVED HOSPICE ORDER, MET WITH PT AND SPOUSE IN ROOM. FRANCISCA GRISSOM provided verbal consent to discuss current and ongoing needs with/in the presence of: SPOUSE, JUAN ANTONIO HAMPTON. JUAN ANTONIO HAMPTON [facility]PORTS [facility]. JUAN ANTONIO HAMPTON REPORTS PT TOLD THE DOCTOR THIS MORNING HE HAS GIVEN UP AND IS READY FOR HOSPICE. THEY ARE CONSIDERING [facility] PT WAS ON THE BOARD FOR A COUPLE OF YEARS FOR [facility] OR [facility] DR. KLEIN IS THE DOCTOR THERE. CM DISCUSSED HOSPICE OPTIONS, PROVIDERS AND LOCATIONS. PT REPORTS UNDERSTANDING HOSPICE. PT STATES "NO". CM ASKED PT TO CLAIRIFY HIS NO ANSWER, PT STATES HE DOES NOT WANT HOSPICE. PT'S SPOUSE TALKED TO PT AT LENGTH STATING THAT HE TOLD THE DOCTOR HE WANTS HOSPICE. PT STATES HE [facility]ES NOT [facility] NOW. CM OFFERED TO HAVE HOSPICE COME AND PROVIDE FURTHER INFORMATION, PT STATES HE DOES NOT WANT TO TALK TO ANYONE ABOUT HOSPICE. PT'S INFORMED CM THAT SHE IS NOT GOING TO BE ABLE TO DO HOSPICE AT HOME SHE WOULD HAVE TO SELL FURNITURE TO GET A HOSPITAL BED IN THE HOME AND HIRE CAREGIVERS. CM DISCUSSED GOING TO ASSISTED FACILITY FOR HOSPICE OR REHAB. PT'S SPOUSE REPORTS PT WILL NOT GO BACK TO [facility] HE WAS THERE AND DID NOT RECEIVE GOOD CARE. SHE HAS HEARD A BAD REPORT ON [facility]. PT'S SPOUSE THINKS THAT PT COULD GO TO INPATIENT HOSPICE AT [facility]. CM EXPLAINED CRITERIA FOR INPATIENT HOSPICE AND THAT PT HAS REFUSED HOSPICE AT THIS TIME. CM FURTHER EXPLAINED TO PT AND SPOUSE THAT IF PT IS NOT WANTING HOSPICE, HE THEN MUST PARTICIPATE WITH CARE AND DECISIONS AND WILL MOST LIKELY NEED ASSISTED FACILITY FOR REHAB. PT'S SPOUSE INFORMED CM THAT SHE WILL DISCUSS OPTIONS WITH PT AND THE DOCTOR AND WILL LET CM KNOW WHAT THEY DECIDE. PT'S SPOUSE REPORTS THAT IF PT DOES NOT WANT HOSPICE, SHE WOULD LIKE PT TO HAVE [facility]AB AT [facility]. CM EXPLAINED THAT PT WOULD NEED TO BE ABLE TO PARTICIPATE IN THREE HOURS OF PROGRESSIVE THERAPY PER DAY. PT'S REPORTS THEY KNOW OF THE PROGRAM AND THEY WILL BE ABLE TO HELP PT REGAIN FUNCTIONING. CM WAITING ON PT AND TO DECIDE REGARDING HOSPICE OR ASSISTED REHAB OR [facility]PATIENT [facility]HAB AT [facility]. Manager Pacu: Sheldon Kennedy DCP- Discharge Planning Updated by [id number]: Mirna Slaughter on 05/07/19 6:[address] Patient Name: FRANCISCA GRISSOM Admission Status: ER Accout number: [id number] Admission Date: 05-04-2019 : 1930 Admission Diagnosis:PNEUMONIA, UNSPECIFIED ORGANISM Attending: MARY SANON Current LOS: 3 Anticipated DC Date: Planned Disposition: Home Primary Insurance: MEDICARE A & B Discharge Planning Comments: CM met with patient and spouse (Juan Antonio Hampton) at bedside after explaining CM role and obtaining verbal consent. Patient lives at home with his where he is partially dependent of his care and plans to return there upon discharge. Spouse feels this would be a safe discharge. CM discussed availability / needs of home health and medical equipment. Juan Antonio Hampton states that they have [facility] and plan to resume care with them upon discharge. RAVINDRA signed. Denies any discharge needs at this time. Patient will have his drive him home upon discharge. CM will continue to follow and assist as needed with discharge planning / needs. Manager Pacu: Mirna Slaughter DCPIA - Discharge Planning Initial Assessment Updated by [id number]: Mirna Slaughter on 05/07/19 7:03 pm * Is the patient Alert and Oriented? Yes * How many steps to enter\\exit or inside your home? * PCP CON[facility]ANTIN * Pharmacy [facility] * Preadmission Environment Home with Family * ADLs Partial Dependent * Partial ADLs (Assistance needed) Ambulation Bathing Dressing Eating Medication Management Toileting Transfers * Other Equipment WALKER, W/C, GAIT BELT, SC * List name and contact numbers for known caregivers / representatives who currently or will assist patient after discharge: JUAN ANTONIO HAMPTON - SPOUSE- [phone], * Verbal permission to speak to the caregivers and representatives has been obtained from the patient. Yes * Community resources currently utilized Home Health * Please name any agencies selected above. [facility] * Additional services required to return to the preadmission environment? No * Can the patient safely return to the preadmission environment? Yes * Has this patient been hospitalized within the prior 30 days at any hospital? No External Providers External Provider: [facility] Next Contact Date: 05/14/2019 Service Request Date: Service Type: Resolution: Reviewer: Comments: External Provider[facility] Next Contact Date: 05/14/2019 Service Request Date: Service Type: Resolution: Reviewer: Comments: Coverage Notice Reviewer: [id number] - Mirna Slaughter Notice Issued Date-Time: 05/07/2019 13:07 Notice Type: Patient Choice Letter Notice Delivered To: Family Member Relationship to Patient: Spouse General Surgery Physician Assistant Name: juan antonio hampton Delivery Method: HAND - Hand Delivered Manjula Days: Prior Verbal Notification: Recipient Understood Notice: Yes Recipient Signature: Yes Med Rec Note Co-signed by Attending: Coverage Notice Comment: Reviewer: [id number] - Sheldon Kennedy Notice Issued Date-Time: 05/13/2019 12:10 Notice Type: IM Discharge Notice Notice Delivered To: Family Member Relationship to Patient: Spouse General Surgery Physician Assistant Name: JUAN ANTONIO FRANZ Delivery Method: HAND - Hand Delivered Manjula Days: Prior Verbal Notification: Recipient Understood Notice: Yes Recipient Signature: Yes Med Rec Note Co-signed by Attending: Coverage Notice Comment: Last DP export: 05/13/19 3:03 p Patient Name: FRANCISCA GRISSOM Page [id number] at 1236 All edits/amendments must be made on the electronic document DICTATION DATE: 05/14/19 1236 HYDROELECTRIC MACHINERY MECHANIC: ESPERANZA 05/14/19 1236 RPT#: [id number] DC DATE: STATUS: ADM IN [facility] [address] [place] [address] END OF REPORT
--- NOTE | 2019-05-14 13:13 | MORECARE ---
CASE MANAGEMENT DISCHARGE SUMMARY PATIENT: FRANCICSA GRISSOM [facility] UNIT: [id number] ADM DATE: 05/04/19 AGE: 88 : 28 SEX: M ROOM/BED: D.2103 AUTHOR: JOSIANE,DOC PHYSICIAN: REFERRING PHYSICIAN: MARY SANON MD DATE OF SERVICE: 05/14/19 Discharge Plan Patient Name: FRANCISCA GRISSOM [facility] [facility] 1930 Planned Disposition: Half-Way Facility Anticipated Discharge Date: Discharge Date: Expected LOS: Initial Reviewer: [id number] Initial Review Date: 05/07/2019 Generated: 05/14/19 2:13 pm Comments DCP- Discharge Planning Updated by [id number]: Sheldon Kennedy on 05/14/19 12:[address] Patient Name: FRANCISCA GRISSOM Encounter No: [id number] : 1930 Primary Insurance: MEDICARE A & B Anticipated DC Date: Planned Disposition: Half-Way Facility External Planned Provider: [facility], MEDICARE SKILLED BED DCP follow-up note: CM SPOKE TO PT'S SPOUSE AT [facility]. SHE WAS CRYING AND STATED THAT DR. KILLIAN TOLD HER THAT PT WILL NEED LONG TERM FACILITY. CM DISCUSSED THIS WITH PT'S SPOUSE WHO INFORMED CM THAT SHE HAS MADE A DECISION TO REFER PT TO [facility] FOR SKILLED CARE. CM EXPLAINED THAT PT WILL HAVE TO HAVE "SKILLED NEED" FOR MEDICARE TO PAY FOR THE PLACEMENT. CM EXPLAINED DIFFERENCE BETWEEN "SKILLED" AND LAMINATION OPERATOR CARE IN LONG TERM FACILITY. PT'S SPOUSE REPORTS THAT THEY ARE RETIRED AND ON FIXED INCOME. MIGUEL EXPLAINED THAT [facility] WOULD DISCUSS OPTIONS AND FINANCES WITH HER. CHOICE SIGNED FOR [facility] AFTER A SHORT TIME, PT'S SPOUSE CAME BACK TO AND ASKED THAT CM FAX REFERRAL FOR [facility] SHE WANTS PT EVALUATED FOR HOSPICE INPATIENT HOSPICE AT [place]. CM SPOKE TO BIA OF [facility], NOTIFIED OF REFERRAL AND FAXED REFERRAL TO [facility] AT [phone]. CM CALLED AND SPOKE TO AMADO AT [facility], , DISCUSSED REFERRAL AND FAXED REFERRAL TO [facility] AT [phone]. CM WAITING HOSPICE SCREENING AND ADMISSION DETERMINATION FROM [facility]. CM WAITING ADMISSION DETERMINATION FOR SKILLED CARE FROM [facility]. Sheldon Kennedy, CASE MANAGEMENT DCP- Discharge Planning Updated by [id number]: Sheldon Kennedy on 05/13/19 3:[address] Patient Name: FRANCISCA GRISSOM Admission Status: ER Accout number: [id number] Admission Date: 05-04-2019 : 1930 Admission Diagnosis:PNEUMONIA, UNSPECIFIED ORGANISM Attending: MARY SANON Current LOS: 9 Anticipated DC Date: Planned Disposition: Home Primary Insurance: MEDICARE A & B Discharge Planning Comments: CM RECEIVED HOSPICE ORDER, MET WITH PT AND SPOUSE IN ROOM. FRANCISCA GRISSOM provided verbal consent to discuss current and ongoing needs with/in the presence of: SPOUSE, JUAN ANTONIO HAMPTON. JUAN ANTONIO HAMPTON REPORTS THEY ARE , JUST NOT IN THE COURTHOUSE. JUAN ANTONIO HAMPTON REPORTS PT TOLD THE DOCTOR THIS MORNING HE HAS GIVEN UP AND IS READY FOR HOSPICE. THEY ARE CONSIDERING [facility] PT WAS ON THE BOARD FOR A COUPLE OF YEARS FOR [facility] OR [facility] DR. KLEIN IS THE DOCTOR THERE. CM DISCUSSED HOSPICE OPTIONS, PROVIDERS AND LOCATIONS. PT REPORTS UNDERSTANDING HOSPICE. PT STATES "NO". CM ASKED PT TO CLAIRIFY HIS NO ANSWER, PT STATES HE DOES NOT WANT HOSPICE. PT'S SPOUSE TALKED TO PT AT LENGTH STATING THAT HE TOLD THE DOCTOR HE WANTS HOSPICE. PT STATES HE [facility] NOT [facility] NOW. CM OFFERED TO HAVE HOSPICE COME AND PROVIDE FURTHER INFORMATION, PT STATES HE DOES NOT WANT TO TALK TO ANYONE ABOUT HOSPICE. PT'S INFORMED CM THAT SHE IS NOT GOING TO BE ABLE TO DO HOSPICE AT HOME SHE WOULD HAVE TO SELL FURNITURE TO GET A HOSPITAL BED IN THE HOME AND HIRE CAREGIVERS. CM DISCUSSED GOING TO LONG TERM FACILITY FOR HOSPICE OR REHAB. PT'S SPOUSE REPORTS PT WILL NOT GO BACK TO [facility] HE WAS THERE AND DID NOT RECEIVE GOOD CARE. SHE HAS HEARD A BAD REPORT ON [facility]. PT'S SPOUSE THINKS THAT PT COULD GO TO INPATIENT HOSPICE AT [facility]. CM EXPLAINED CRITERIA FOR INPATIENT HOSPICE AND THAT PT HAS REFUSED HOSPICE AT THIS TIME. CM FURTHER EXPLAINED TO PT AND SPOUSE THAT IF PT IS NOT WANTING HOSPICE, HE THEN MUST PARTICIPATE WITH CARE AND DECISIONS AND WILL MOST LIKELY NEED LONG TERM FACILITY FOR REHAB. PT'S SPOUSE INFORMED CM THAT SHE WILL DISCUSS OPTIONS WITH PT AND THE DOCTOR AND WILL LET CM KNOW WHAT THEY DECIDE. PT'S SPOUSE REPORTS THAT IF PT DOES NOT WANT HOSPICE, SHE WOULD LIKE PT TO HAVE INPATIENT REHAB AT [facility]. CM EXPLAINED THAT PT WOULD NEED TO BE ABLE TO PARTICIPATE IN THREE HOURS OF PROGRESSIVE THERAPY PER DAY. PT'S REPORTS THEY KNOW OF THE PROGRAM AND THEY WILL BE ABLE TO HELP PT REGAIN FUNCTIONING. CM WAITING ON PT AND TO DECIDE REGARDING HOSPICE OR LONG TERM REHAB OR INPATIENT REHAB AT [facility]. Baccarat Manager: Sheldon Kennedy DCP- Discharge Planning Updated by [id number]: Mirna Slaughter on 05/07/19 6:[address] Patient Name: FRANCISCA GRISSOM Admission Status: ER Accout number: [id number] Admission Date: 05-04-2019 : 1930 Admission Diagnosis:PNEUMONIA, UNSPECIFIED ORGANISM Attending: MARY SANON Current LOS: 3 Anticipated DC Date: Planned Disposition: Home Primary Insurance: MEDICARE A & B Discharge Planning Comments: CM met with patient and spouse (Juan Antonio Hampton) at bedside after explaining CM role and obtaining verbal consent. Patient lives at home with his where he is partially dependent of his care and plans to return there upon discharge. Spouse feels this would be a safe discharge. CM discussed availability / needs of home health and medical equipment. Juan Antonio Hampton states that they have [facility] and plan to resume care with them upon discharge. RAVINDRA signed. Denies any discharge needs at this time. Patient will have his drive him home upon discharge. CM will continue to follow and assist as needed with discharge planning / needs. Baccarat Manager: Mirna Slaughter DCPIA - Discharge Planning Initial Assessment Updated by [email or web address]: Mirna Slaughter on 05/07/19 7:03 pm * Is the patient Alert and Oriented? Yes * How many steps to enter\\exit or inside your home? * PCP CON[facility] * Pharmacy [facility] * Preadmission Environment Home with Family * ADLs Partial Dependent * Partial ADLs (Assistance needed) Ambulation Bathing Dressing Eating Medication Management Toileting Transfers * Other Equipment WALKER, W/C, GAIT BELT, SC * List name and contact numbers for known caregivers / representatives who currently or will assist patient after discharge: JUAN ANTONIO HAMPTON - SPOUSE- [phone], * Verbal permission to speak to the caregivers and representatives has been obtained from the patient. Yes * Community resources currently utilized Home Health * Please name any agencies selected above. [facility] * Additional services required to return to the preadmission environment? No * Can the patient safely return to the preadmission environment? Yes * Has this patient been hospitalized within the prior 30 days at any hospital? No Coverage Notice Reviewer: [id number] Viktor Slaughter Notice Issued Date-Time: 05/07/2019 13:07 Notice Type: Patient Choice Letter Notice Delivered To: Family Member Relationship to Patient: Spouse Senior Peoplesoft Developer Name: juan antonio hampton Delivery Method: HAND - Hand Delivered Manjula Days: Prior Verbal Notification: Recipient Understood Notice: Yes Recipient Signature: Yes Med Rec Note Co-signed by Attending: Coverage Notice Comment: Reviewer: [id number] - Sheldon Kennedy Notice Issued Date-Time: 05/13/2019 12:10 Notice Type: IM Discharge Notice Notice Delivered To: Family Member Relationship to Patient: Spouse Senior Peoplesoft Developer Name: JUAN ANTONIO FRANZ Delivery Method: HAND - Hand Delivered Manjula Days: Prior Verbal Notification: Recipient Understood Notice: Yes Recipient Signature: Yes Med Rec Note Co-signed by Attending: Coverage Notice Comment: Last DP export: 05/14/19 11:36 a Patient Name: FRANCISCA GRISSOM Page [phone] at 1313 All edits/amendments must be made on the electronic document DICTATION DATE: 05/14/19 1313 CRUSHER TENDER: ESPERANZA 05/14/19 1313 RPT#: [id number] DC DATE: STATUS: ADM IN [facility] [address] [place] [address] END OF REPORT
--- NOTE | 2019-05-14 13:51 | NUR ---
I have reviewed this patient and I concur with the Shift Assessment completed by the Licensed Practical Nurse today this shift.
[2019-05-14 15:32] VITALS: BP 131/63
--- NOTE | 2019-05-14 18:09 | NUR ---
[facility] NURSE HERE AND STATES PT QUALIFIES OF HOSPICE CARE AT HOME BUT NOT IN HOSPITAL. WILL LET HEART SPECIALIST KNOW TO CALL THEM TOMORROW.
--- NOTE | 2019-05-14 19:08 | NUR ---
BEDSIDE REPORT RECEIVED FROM DAY SHIFT, PT CARE ASSUMED. INTRODUCED SELF AND WROTE NAME ON BOARD. PT LYING IN BED WITH EYES CLOSED, RR EVEN AND NONLABORED, NO S/S OF DISTRESS, EASILY AROUSED BY VOICE. DENIES NEEDS AT THIS TIME. BED IN LOWEST POSITION, SR X2, CALL LIGHT WITHIN REACH. WILL CONTINUE TO MONITOR.
[2019-05-14 20:00] VITALS: BP 136/57
--- NOTE | 2019-05-14 20:56 | NUR ---
NIGHT TIME MEDS GIVEN, PER ORDER. PT LYING IN BED, EYES CLOSED, RR EVEN AND NONLABORED, NO S/S OF DISTRESS, AROUSES EASILY TO VOICE. DENIES PAIN OR ANY NEEDS AT THIS TIME. BED IN LOWEST POSITION, SR X2, CALL LIGHT WITHIN REACH. WILL CONTINUE TO MONITOR.
[2019-05-15] VITALS: BP 119/56
[2019-05-15 04:00] VITALS: BP 123/67
[2019-05-15 05:19] LABS: CALC OSMOLALITY 270 mosm/kg (275-300); CALCIUM 8.4 mg/dL (8.5-10.1); CARBON DIOXIDE 30.3 mmol/L (21.0-32.0); CHLORIDE - SERUM 100 mmol/L (98-107); GLUCOSE 102 mg/dL (74-106); POTASSIUM - SERUM 3.7 mmol/L (3.5-5.1); SODIUM 135 mmol/L (136-145); UREA NITROGEN 16 mg/dL (7-18); eGFR NON AFRICAN AMERICAN 75 mL/min (90-120)
[2019-05-15 05:33] LABS: BASOPHILS 0.6 % (0-2); EOSINOPHILS 20.2 % (0-7); HEMOGLOBIN 8.8 g/dL (13.5-17.5); IMMATURE GRANULOCYTES 0.4 % (0-5); LYMPHOCYTES 11.4 % (15-50); MCH 28.2 pg (26.0-34.0); MCHC 33.8 g/dL (31.0-37.0); MCV 83.3 fL (80.0-100.0); MEAN PLATELET VOLUME 8.7 fL (7.4-10.4); MONOCYTES 10.2 % (2-11); NEUTROPHILS 57.2 % (40-80); PLATELET COUNT 382 10x3/uL (130-400); RBC 3.12 10x6/uL (4.20-6.10); RDW 14.9 % (11.5-14.5); WBC 9.5 10x3/uL (4.8-10.8)
--- NOTE | 2019-05-15 07:10 | NUR ---
REPORT RECEIVED. HE ANSWERS TO NAME. KEEPS EYES CLOSED. HIS FACE IS SUNKEN BY TEMPLES AND EYES. RESP EVEN WITHOUT LABOR. F/C PATENT WITH RADHA URINE DRAINING. HE HAS EDEMA TO BOTH ARMS AND THEY ARE PUT UP ON PILLOWS. INCONTINENT CARE GIVEN. REFUSES ANY WATER AT THIS TIME. ANSWERS NO OR YES MAINLY. SCD'S ARE ON. BED IN LOWEST POSITION AND LOCKED. CAREPLAN REVIEW WITH SAFETY PRECAUTIONS IN PLACE. REQUIRES TOTAL CARE FOR ALL NEEDS. O2 ON AT 3 L/M PER N/C. COCCYX IS EXCORIATED AND SO IS SCROTUM, PROTECTIVE PASTE WAS APPLIED. HE HAS SOME SWELLING IN HIS PENIS AND SCROTUM AND THEY ARE PROPPED UP. CL IN REACH
--- NOTE | 2019-05-15 09:20 | MORECARE ---
CASE MANAGEMENT DISCHARGE SUMMARY PATIENT: FRANCISCA GRISSOM III UNIT: [id number] ADM DATE: 05/04/19 AGE: 88 : 28 SEX: M ROOM/BED: D.2103 AUTHOR: JOSIANEDOC PHYSICIAN: REFERRING PHYSICIAN: MARY SANON MD DATE OF SERVICE: 05/15/19 Discharge Plan Patient Name: FRANCISCA GRISSOM [facility] [facility] 1930 [facility] Dis[facility] Facility Anticipated Discharge Date: 05/15/19 Discharge Date: Expected LOS: 11 Initial Reviewer: [id number] Initial Review Date: 05/07/2019 Generated: 05/15/19 10:20 am Comments DCP- Discharge Planning Updated by [id number]: Sheldon Kennedy on 05/14/19 12:[address] Patient Name: FRANCISCA GRISSOM Encounter No: [id number] : 1930 Primary Insurance: MEDICARE A & B Anticipated DC Date: Planned Disposition: [facility] Facility External Planned Provider: [facility], MEDICARE SKILLED BED DCP follow-up note: CM SPOKE TO PT'S SPOUSE AT [employer]. SHE WAS CRYING AND STATED THAT DR. KILLIAN TOLD HER THAT PT WILL NEED SENIOR CARE FACILITY. CM DISCUSSED THIS WITH PT'S SPOUSE WHO INFORMED CM THAT SHE HAS MADE A DECISION TO REFER PT TO [facility] FOR SKILLED CARE. CM EXPLAINED THAT PT WILL HAVE TO HAVE "SKILLED NEED" FOR MEDICARE TO PAY FOR THE PLACEMENT. CM EXPLAINED DIFFERENCE BETWEEN "SKILLED" AND INTERMEDIATE CARE IN SENIOR CARE FACILITY. PT'S SPOUSE REPORTS THAT THEY ARE RETIRED AND ON FIXED INCOME. CM EXPLAINED THAT [facility] WOULD DISCUSS OPTIONS AND FINANCES WITH HER. CHOICE SIGNED FOR [facility]. AFTER A SHORT TIME, PT'S SPOUSE CAME BACK TO AND ASKED THAT CM FAX REFERRAL FOR [facility] SHE WANTS PT EVALUATED FOR HOSPICE INPATIENT HOSPICE AT [place]. CM SPOKE TO BIA OF [facility], NOTIFIED OF REFERRAL AND FAXED REFERRAL TO [facility] AT [phone]. CM CALLED AND SPOKE TO AMADO AT [facility], , DISCUSSED REFERRAL AND FAXED REFERRAL TO [facility] AT [phone]. CM WAITING HOSPICE SCREENING AND ADMISSION DETERMINATION FROM [facility]. CM WAITING ADMISSION DETERMINATION FOR SKILLED CARE FROM [facility]. Sheldon Kennedy, CASE MANAGEMENT DCP- Discharge Planning Updated by [id number]: Sheldon Kennedy on 05/13/19 3:[address] Patient Name: FRANCISCA GRISSOM Admission Status: ER Accout number: [id number] Admission Date: 05-04-2019 : 1930 Admission Diagnosis:PNEUMONIA, UNSPECIFIED ORGANISM Attending: MARY SANON Current LOS: 9 Anticipated DC Date: Planned Disposition: Home Primary Insurance: MEDICARE A & B Discharge Planning Comments: CM RECEIVED HOSPICE ORDER, MET WITH PT AND SPOUSE IN ROOM. FRANCISCA GRISSOM provided verbal consent to discuss current and ongoing needs with/in the presence of: SPOUSE, JUAN ANTONIO HAMPTON. JUAN ANTONIO HAMPTON REPORTS THEY ARE , JUST NOT IN THE COURTHOUSE. JUAN ANTONIO HAMPTON REPORTS PT TOLD THE DOCTOR THIS MORNING HE HAS GIVEN UP AND IS READY FOR HOSPICE. THEY ARE CONSIDERING [facility] PT WAS ON THE BOARD FOR A COUPLE OF YEARS FOR [facility] OR [facility] DR. KLEIN IS THE DOCTOR THERE. CM DISCUSSED HOSPICE OPTIONS, PROVIDERS AND LOCATIONS. PT REPORTS UNDERSTANDING HOSPICE. PT STATES "NO". CM ASKED PT TO CLAIRIFY HIS NO ANSWER, PT STATES HE DOES NOT WANT HOSPICE. PT'S SPOUSE TALKED TO PT AT LENGTH STATING THAT HE TOLD THE DOCTOR HE WANTS HOSPICE. PT STATES HE [facility] NOT [facility] NOW. CM OFFERED TO HAVE HOSPICE COME AND PROVIDE FURTHER INFORMATION, PT STATES HE DOES NOT WANT TO TALK TO ANYONE ABOUT HOSPICE. PT'S INFORMED CM THAT SHE IS NOT GOING TO BE ABLE TO DO HOSPICE AT HOME SHE WOULD HAVE TO SELL FURNITURE TO GET A HOSPITAL BED IN THE HOME AND HIRE CAREGIVERS. CM DISCUSSED GOING TO SENIOR CARE FACILITY FOR HOSPICE OR REHAB. PT'S SPOUSE REPORTS PT WILL NOT GO BACK TO [facility] HE WAS THERE AND DID NOT RECEIVE GOOD CARE. SHE HAS HEARD A BAD REPORT ON [facility]. PT'S SPOUSE THINKS THAT PT COULD GO TO INPATIENT HOSPICE AT [facility]. CM EXPLAINED CRITERIA FOR INPATIENT HOSPICE AND THAT PT HAS REFUSED HOSPICE AT THIS TIME. CM FURTHER EXPLAINED TO PT AND SPOUSE THAT IF PT IS NOT WANTING HOSPICE, HE THEN MUST PARTICIPATE WITH CARE AND DECISIONS AND WILL MOST LIKELY NEED SENIOR CARE FACILITY FOR REHAB. PT'S SPOUSE INFORMED CM THAT SHE WILL DISCUSS OPTIONS WITH PT AND THE DOCTOR AND WILL LET CM KNOW WHAT THEY DECIDE. PT'S SPOUSE REPORTS THAT IF PT DOES NOT WANT HOSPICE, SHE WOULD LIKE PT TO HAVE INPATIENT REHAB AT [facility]. CM EXPLAINED THAT PT WOULD NEED TO BE ABLE TO PARTICIPATE IN THREE HOURS OF PROGRESSIVE THERAPY PER DAY. PT'S REPORTS THEY KNOW OF THE PROGRAM AND THEY WILL BE ABLE TO HELP PT REGAIN FUNCTIONING. CM WAITING ON PT AND TO DECIDE REGARDING HOSPICE OR SENIOR CARE REHAB OR INPATIENT REHAB AT [facility]. Dental Lab Technician: Sheldon Kennedy DCP- Discharge Planning Updated by [id number]: Mirna Slaughter on 05/07/19 6:[address] Patient Name: FRANCISCA GRISSOM Admission Status: ER Accout number: [id number] Admission Date: 05-04-2019 : 1930 Admission Diagnosis:PNEUMONIA, UNSPECIFIED ORGANISM Attending: MARY SANON Current LOS: 3 Anticipated DC Date: Planned Disposition: Home Primary Insurance: MEDICARE A & B Discharge Planning Comments: CM met with patient and spouse (Juan Antonio Hampton) at bedside after explaining CM role and obtaining verbal consent. Patient lives at home with his where he is partially dependent of his care and plans to return there upon discharge. Spouse feels this would be a safe discharge. CM discussed availability / needs of home health and medical equipment. Juan Antonio Hampton states that they have [facility] and plan to resume care with them upon discharge. RAVINDRA signed. Denies any discharge needs at this time. Patient will have his drive him home upon discharge. CM will continue to follow and assist as needed with discharge planning / needs. Dental Lab Technician: Mirna Slaughter DCPIA - Discharge Planning Initial Assessment Updated by [email or web address]: Mirna Slaughter on 05/07/19 7:03 pm * Is the patient Alert and Oriented? Yes * How many steps to enter\\exit or inside your home? * PCP CON[facility]ANTIN * Pharmacy [facility] * Preadmission Environment Home with Family * ADLs Partial Dependent * Partial ADLs (Assistance needed) Ambulation Bathing Dressing Eating Medication Management Toileting Transfers * Other Equipment WALKER, W/C, GAIT BELT, SC * List name and contact numbers for known caregivers / representatives who currently or will assist patient after discharge: JUAN ANTONIO HAMPTON - SPOUSE- [phone], * Verbal permission to speak to the caregivers and representatives has been obtained from the patient. Yes * Community resources currently utilized Home Health * Please name any agencies selected above. [facility] * Additional services required to return to the preadmission environment? No * Can the patient safely return to the preadmission environment? Yes * Has this patient been hospitalized within the prior 30 days at any hospital? No Coverage Notice Reviewer: [id number] - Mirna Slaughter Notice Issued Date-Time: 05/07/2019 13:07 Notice Type: Patient Choice Letter Notice Delivered To: Family Member Relationship to Patient: Spouse Mental Hygienist Name: juan antonio hampton Delivery Method: HAND - Hand Delivered Manjula Days: Prior Verbal Notification: Recipient Understood Notice: Yes Recipient Signature: Yes Med Rec Note Co-signed by Attending: Coverage Notice Comment: Reviewer: [id number] - Sheldon Kennedy Notice Issued Date-Time: 05/13/2019 12:10 Notice Type: IM Discharge Notice Notice Delivered To: Family Member Relationship to Patient: Spouse Mental Hygienist Name: JUAN ANTONIO FRANZ Delivery Method: HAND - Hand Delivered Manjula Days: Prior Verbal Notification: Recipient Understood Notice: Yes Recipient Signature: Yes Med Rec Note Co-signed by Attending: Coverage Notice Comment: Last DP export: 05/14/19 12:13 p Patient Name: FRANCISCA GRISSOM Page [id number] at 0920 All edits/amendments must be made on the electronic document DICTATION DATE: 05/15/19919 NBA PLAYER: ESPERANZA 05/15/19919 RPT#: [id number] DC DATE: STATUS: ADM IN [facility] [address] [place] [address] END OF REPORT
--- NOTE | 2019-05-15 09:27 | MORECARE ---
CASE MANAGEMENT DISCHARGE SUMMARY PATIENT: FRANCISCA GRISSOM III UNIT: [id number] ADM DATE: 05/04/19 AGE: 88 : 28 SEX: M ROOM/BED: D.2103 AUTHOR: ARSENIO JOSHUA PHYSICIAN: REFERRING PHYSICIAN: MARY SANON MD DATE OF SERVICE: 05/15/19 Discharge Plan Patient Name: FRANCISCA GRISSOM [facility] [facility] 1930 Planned Disposition: Senior Living Facility Anticipated Discharge Date: 05/15/19 Discharge Date: Expected LOS: 11 Initial Reviewer: [id number] Initial Review Date: 05/07/2019 Generated: 05/15/19 10:26 am Comments DCP- Discharge Planning Updated by [id number]: Sheldon Kennedy on 05/15/19 8:[address] Patient Name: FRANCISCA GRISSOM Encounter No: [id number] : 1930 Primary Insurance: MEDICARE A & B Anticipated DC Date: 05-15-2019 Planned Disposition: Senior Living Facility External Planned Provider: [facility], MEDICARE REHAB BED DCP follow-up note: CM RECEIVEC CALL FROM [facility], , WHO INFORMED CM THAT PT HAS BEEN ACCEPTED FOR SKILLED CARE. CM CALLED AND NOTIFED DR. KILLIAN WHO PLANS TO DISCHARGE TODAY TO [facility]. CM SPOKE TO PT AND SPOUSE IN ROOM, INFORMED THAT [facility] ACCEPTED. PT'S SPOUSE ASKED PT IF HE WANTS HOSPICE AT HOME OR SKILLED CARE AT [facility] WHERE HE HAS TO EAT AND PARTICIPATE WITH THERAPY, PT STATES HE WANTS TO GO TO [facility] AND TRY. PT'S SPOUSE INFORMED CM THAT SHE HAS ROOM CLEANED FOR MEDICAL EQUIPMENT AND THAT HOSPICE HAS APPROVED FOR HOME HOSPICE. CM NOTIFIED BIA OF [facility] WHO STATES THAT PT'S SPOUSE IS TO CALL WHEN PT IS READY TO LEAVE [facility] AND THEY WILL RESUME ARRANGEMENTS FOR HOME HOSPICE. SPOUSE NOTIFIED WHO ASKED THAT CM NOTIFY [facility] OF ARRANGEMENTS. CM CALLED [facility], , NOTIFIED [facility]. FOR DISCHARGE, FAX DISCHARGE INFOMATION TO [facility] AT [phone]. NURSE REPORT TO BE CALLED TO [facility] AT [phone]. [facility] TO ARRANGE TRANSPORTATION. GARIMA Bray DCP- Discharge Planning Updated by [id number]: Sheldon Kennedy on 05/14/19 12:[address] Patient Name: FRANCISCA GRISSOM Encounter No: [id number] : 1930 Primary Insurance: MEDICARE A & B Anticipated DC Date: Planned Disposition: Senior Living Facility External Planned Provider: [facility], MEDICARE SKILLED BED DCP follow-up note: CM SPOKE TO PT'S SPOUSE AT [employer]. SHE WAS CRYING AND STATED THAT DR. KILLIAN TOLD HER THAT PT WILL NEED PRISON FACILITY. CM DISCUSSED THIS WITH PT'S SPOUSE WHO INFORMED CM THAT SHE HAS MADE A DECISION TO REFER PT TO [facility] FOR SKILLED CARE. CM EXPLAINED THAT PT WILL HAVE TO HAVE "SKILLED NEED" FOR MEDICARE TO PAY FOR THE PLACEMENT. CM EXPLAINED DIFFERENCE BETWEEN "SKILLED" AND ENVIRONMENTAL PLANNING ENGINEER CARE IN PRISON FACILITY. PT'S SPOUSE REPORTS THAT THEY ARE RETIRED AND ON FIXED INCOME. CM EXPLAINED THAT [facility] WOULD DISCUSS OPTIONS AND FINANCES WITH HER. CHOICE SIGNED FOR [facility]. AFTER A SHORT TIME, PT'S SPOUSE CAME BACK TO [place] AND ASKED THAT CM FAX REFERRAL FOR [facility] SHE WANTS PT EVALUATED FOR HOSPICE INPATIENT HOSPICE AT [place]. CM SPOKE TO BIA OF [facility], NOTIFIED OF REFERRAL AND FAXED REFERRAL TO [facility] AT [phone]. CM CALLED AND SPOKE TO AMADO AT [facility], , DISCUSSED REFERRAL AND FAXED REFERRAL TO [facility] AT [phone]. CM WAITING HOSPICE SCREENING AND ADMISSION DETERMINATION FROM [facility]. CM WAITING [facility] GARIMA Bray DCP- Discharge Planning Updated by [id number]: Sheldon Kennedy on 05/13/19 3:[address] Patient Name: FRANCISCA GRISSOM Admission Status: ER Accout number: [id number] Admission Date: 05-04-2019 : 1930 Admission Diagnosis:PNEUMONIA, UNSPECIFIED ORGANISM Attending: MARY SANON Current LOS: 9 Anticipated DC Date: Planned Disposition: Home Primary Insurance: MEDICARE A & B Discharge Planning Comments: CM RECEIVED HOSPICE ORDER, MET WITH PT AND SPOUSE IN ROOM. FRANCISCA GRISSOM provided verbal consent to discuss current and ongoing needs with/in the presence of: SPOUSE, JUAN ANTONIO HAMPTON. JUAN ANTONIO HAMPTON REPORTS THEY ARE , JUST NOT IN THE COURTHOUSE. JUAN ANTONIO HAMPTON REPORTS PT TOLD THE DOCTOR THIS MORNING HE HAS GIVEN UP AND IS READY FOR HOSPICE. THEY ARE CONSIDERING [facility] PT WAS ON THE BOARD FOR A COUPLE OF YEARS FOR [facility] OR [facility] DR. KLEIN IS THE DOCTOR THERE. CM DISCUSSED HOSPICE OPTIONS, PROVIDERS AND LOCATIONS. PT REPORTS UNDERSTANDING HOSPICE. PT STATES "NO". CM ASKED PT TO CLAIRIFY HIS NO ANSWER, PT STATES HE DOES NOT WANT HOSPICE. PT'S SPOUSE TALKED TO PT AT LENGTH STATING THAT HE TOLD THE DOCTOR HE WANTS HOSPICE. PT STATES HE [facility] NOT [facility] NOW. CM OFFERED TO HAVE HOSPICE COME AND PROVIDE FURTHER INFORMATION, PT STATES HE DOES NOT WANT TO TALK TO ANYONE ABOUT HOSPICE. PT'S INFORMED CM THAT SHE IS NOT GOING TO BE ABLE TO DO HOSPICE AT HOME SHE WOULD HAVE TO SELL FURNITURE TO GET A HOSPITAL BED IN THE HOME AND HIRE CAREGIVERS. CM DISCUSSED GOING TO PRISON FACILITY FOR HOSPICE OR REHAB. PT'S SPOUSE REPORTS PT WILL NOT GO BACK TO [facility] HE WAS THERE AND DID NOT RECEIVE GOOD CARE. SHE HAS HEARD A BAD REPORT ON [facility]. PT'S SPOUSE THINKS THAT PT COULD GO TO INPATIENT HOSPICE AT [facility]. CM EXPLAINED CRITERIA FOR INPATIENT HOSPICE AND THAT PT HAS REFUSED HOSPICE AT THIS TIME. CM FURTHER EXPLAINED TO PT AND SPOUSE THAT IF PT IS NOT WANTING HOSPICE, HE THEN MUST PARTICIPATE WITH CARE AND DECISIONS AND WILL MOST LIKELY NEED PRISON FACILITY FOR REHAB. PT'S SPOUSE INFORMED CM THAT SHE WILL DISCUSS OPTIONS WITH PT AND THE DOCTOR AND WILL LET CM KNOW WHAT THEY DECIDE. PT'S SPOUSE REPORTS THAT IF PT DOES NOT WANT HOSPICE, SHE WOULD LIKE PT TO HAVE INPATIENT REHAB AT [facility]. CM EXPLAINED THAT PT WOULD NEED TO BE ABLE TO PARTICIPATE IN THREE HOURS OF PROGRESSIVE THERAPY PER DAY. PT'S REPORTS THEY KNOW OF THE PROGRAM AND THEY WILL BE ABLE TO HELP PT REGAIN FUNCTIONING. CM WAITING ON PT AND TO DECIDE REGARDING HOSPICE OR PRISON REHAB OR INPATIENT REHAB AT [facility]. Authorization Representative: Sheldon Kennedy DCP- Discharge Planning Updated by [id number]: Mirna Slaughter on 05/07/19 6:[address] Patient Name: FRANCISCA GRISSOM Admission Status: ER Accout number: [id number] Admission Date: 05-04-2019 : 1930 Admission Diagnosis:PNEUMONIA, UNSPECIFIED ORGANISM Attending: MARY SANON Current LOS: 3 Anticipated DC Date: Planned Disposition: Home Primary Insurance: MEDICARE A & B Discharge Planning Comments: CM met with patient and spouse (Juan Antonio Hampton) at bedside after explaining CM role and obtaining verbal consent. Patient lives at home with his where he is partially dependent of his care and plans to return there upon discharge. Spouse feels this would be a safe discharge. CM discussed availability / needs of home health and medical equipment. Juan Antonio Hampton states that they have [facility] and plan to resume care with them upon discharge. RAVINDRA signed. Denies any discharge needs at this time. Patient will have his drive him home upon discharge. CM will continue to follow and assist as needed with discharge planning / needs. Authorization Representative: Mirna Slaughter DCPIA - Discharge Planning Initial Assessment Updated by [id number]: Mirna Slaughter on 05/07/19 7:03 pm * Is the patient Alert and Oriented? Yes * How many steps to enter\\exit or inside your home? * PCP CONSTANTIN * Pharmacy [facility] * Preadmission Environment Home with Family * ADLs Partial Dependent * Partial ADLs (Assistance needed) Ambulation Bathing Dressing Eating Medication Management Toileting Transfers * Other Equipment WALKER, W/C, GAIT BELT, SC * List name and contact numbers for known caregivers / representatives who currently or will assist patient after discharge: JUAN ANTONIO HAMPTON - SPOUSE- [phone], * Verbal permission to speak to the caregivers and representatives has been obtained from the patient. Yes * Community resources currently utilized Home Health * Please name any agencies selected above. [facility] * Additional services required to return to the preadmission environment? No * Can the patient safely return to the preadmission environment? Yes * Has this patient been hospitalized within the prior 30 days at any hospital? No Coverage Notice Reviewer: [id number] - Mirna Salughter Notice Issued Date-Time: 05/07/2019 13:07 Notice Type: Patient Choice Letter Notice Delivered To: Family Member Relationship to Patient: Spouse Rehab Assistant Name: juan antonio hampton Delivery Method: HAND - Hand Delivered Manjula Days: Prior Verbal Notification: Recipient Understood Notice: Yes Recipient Signature: Yes Med Rec Note Co-signed by Attending: Coverage Notice Comment: Reviewer: [id number] - Sheldon Kennedy Notice Issued Date-Time: 05/13/2019 12:10 Notice Type: IM Discharge Notice Notice Delivered To: Family Member Relationship to Patient: Spouse Rehab Assistant Name: JUAN ANTONIO FRANZ Delivery Method: HAND - Hand Delivered Manjula Days: Prior Verbal Notification: Recipient Understood Notice: Yes Recipient Signature: Yes Med Rec Note Co-signed by Attending: Coverage Notice Comment: Last DP export: 05/15/19 8:20 a Patient Name: FRANCISCA GRISSOM Page 12905 at 0927 All edits/amendments must be made on the electronic document DICTATION DATE: 05/15/19925 REAL ESTATE LEASING MANAGER: ESPERANZA 05/15/19925 RPT#: [id number] DC DATE: STATUS: ADM IN [facility] [address] [place] [address] END OF REPORT
[2019-05-15] MEDS ORDERED: MUCINEX600 MG PO (09:51)
[2019-05-15] MEDS ORDERED: LEVOTHYROXINE75 MCG PO (09:52)
[2019-05-15] MEDS ORDERED: THERMOTABS 1 GM1 GM PO ×2 (09:53→10:47)
--- NOTE | 2019-05-15 10:44 | NUR ---
SPOKE WITH RILEY RIVERA WITH [employer] [employer]. SHE REC D/C PT ON SODIUM TABS TID.
--- NOTE | 2019-05-15 11:17 | MORECARE ---
CASE MANAGEMENT DISCHARGE SUMMARY PATIENT: FRANCISCA GRISSOM III UNIT: [id number] ADM DATE: 05/04/19 AGE: 88 : 28 SEX: M ROOM/BED: D.2103 AUTHOR: ARSENIO JOSHUA PHYSICIAN: REFERRING PHYSICIAN: MARY SANON MD DATE OF SERVICE: 05/15/19 Discharge Plan Patient Name: FRANCISCA GRISSOM [facility] [facility] 1930 Planned Disposition: Snf Facility Anticipated Discharge Date: 05/15/19 Discharge Date: Expected LOS: 11 Initial Reviewer: [id number] Initial Review Date: 05/07/2019 Generated: 05/15/19 12:17 pm Comments DCP- Discharge Planning Updated by [id number]: Sheldon Kennedy on 05/15/19 8:[address] Patient Name: FRANCISCA GRISSOM Encounter No: [id number] : 1930 Primary Insurance: MEDICARE A & B Anticipated DC Date: 05-15-2019 Planned Disposition: Snf Facility External Planned Provider: [facility], MEDICARE REHAB BED DCP follow-up note: CM RECEIVEC CALL FROM [facility], , WHO INFORMED CM THAT PT HAS BEEN ACCEPTED FOR SKILLED CARE. CM CALLED AND NOTIFED DR. KILLIAN WHO PLANS TO DISCHARGE TODAY TO [facility]. CM SPOKE TO PT AND SPOUSE IN ROOM, INFORMED THAT [facility] ACCEPTED. PT'S SPOUSE ASKED PT IF HE WANTS HOSPICE AT HOME OR SKILLED CARE AT [facility] WHERE HE HAS TO EAT AND PARTICIPATE WITH THERAPY, PT STATES HE WANTS TO GO TO [facility] AND TRY. PT'S SPOUSE INFORMED CM THAT SHE HAS ROOM CLEANED FOR MEDICAL EQUIPMENT AND THAT HOSPICE HAS APPROVED FOR HOME HOSPICE. CM NOTIFIED [facility] OF [facility] WHO STATES THAT PT'S SPOUSE IS TO CALL WHEN PT IS READY TO LEAVE [facility] AND THEY WILL RESUME ARRANGEMENTS FOR HOME HOSPICE. SPOUSE NOTIFIED WHO ASKED THAT CM NOTIFY [facility] OF ARRANGEMENTS. CM CALLED [facility], , NOTIFIED [facility]. FOR DISCHARGE, FAX DISCHARGE INFOMATION TO [facility] AT [phone]. NURSE REPORT TO BE CALLED TO [facility] AT [phone]. [facility] TO ARRANGE TRANSPORTATION. GARIMA Bray DCP- Discharge Planning Updated by [id number]: Sheldon Kennedy on 05/14/19 12:[address] Patient Name: FRANCISCA GRISSOM Encounter No: [id number] : 1930 Primary Insurance: MEDICARE A & B Anticipated DC Date: Planned Disposition: Snf Facility External Planned Provider: [facility], MEDICARE SKILLED BED DCP follow-up note: CM SPOKE TO PT'S SPOUSE AT [employer] STATION. SHE WAS CRYING AND STATED THAT DR. KILLIAN TOLD HER THAT PT WILL NEED [facility] FACILITY. CM DISCUSSED THIS WITH PT'S SPOUSE WHO INFORMED CM THAT SHE HAS MADE A DECISION TO REFER PT TO [facility] FOR SKILLED CARE. CM EXPLAINED THAT PT WILL HAVE TO HAVE "SKILLED NEED" FOR MEDICARE TO PAY FOR THE PLACEMENT. CM EXPLAINED DIFFERENCE BETWEEN "SKILLED" AND EKG MANAGER CARE IN [facility]IVING FACILITY. PT'S SPOUSE REPORTS THAT THEY ARE RETIRED AND ON FIXED INCOME. CM EXPLAINED THAT [facility] WOULD DISCUSS OPTIONS AND FINANCES WITH HER. CHOICE SIGNED FOR [facility]. AFTER A SHORT TIME, PT'S SPOUSE CAME BACK TO MIGUEL AND ASKED THAT CM FAX REFERRAL FOR [facility] SHE WANTS PT EVALUATED FOR HOSPICE INPATIENT HOSPICE AT [place]. CM SPOKE TO BIA OF [facility], NOTIFIED OF REFERRAL AND FAXED REFERRAL TO [facility] AT [phone]. CM CALLED AND SPOKE TO AMADO AT [facility], , DISCUSSED REFERRAL AND FAXED REFERRAL TO [facility] AT [phone]. CM WAITING HOSPICE SCREENING AND ADMISSION DETERMINATION FROM [facility]. CM WAITING [facility] GARIMA Bray DCP- Discharge Planning Updated by [id number]: Sheldon Kennedy on 05/13/19 3:[address] Patient Name: FRANCISCA GRISSOM Admission Status: ER Accout number: [id number] Admission Date: 05-04-2019 : 1930 Admission Diagnosis:PNEUMONIA, UNSPECIFIED ORGANISM Attending: MARY SANON Current LOS: 9 Anticipated DC Date: Planned Disposition: Home Primary Insurance: MEDICARE A & B Discharge Planning Comments: CM RECEIVED HOSPICE ORDER, MET WITH PT AND SPOUSE IN ROOM. FRANCISCA GRISSOM provided verbal consent to discuss current and ongoing needs with/in the presence of: SPOUSE, JUAN ANTONIO HAMPTON. JUAN ANTONIO HAMPTON REPORTS THEY ARE , JUST NOT IN THE COURTHOUSE. JUAN ANTONIO HAMPTON REPORTS PT TOLD THE DOCTOR THIS MORNING HE HAS GIVEN UP AND IS READY FOR HOSPICE. THEY ARE CONSIDERING [facility] PT WAS ON THE BOARD FOR A COUPLE OF YEARS FOR [facility] OR [facility] DR. KLEIN IS THE DOCTOR THERE. CM DISCUSSED HOSPICE OPTIONS, PROVIDERS AND LOCATIONS. PT REPORTS UNDERSTANDING HOSPICE. PT STATES "NO". CM ASKED PT TO CLAIRIFY HIS NO ANSWER, PT STATES HE DOES NOT WANT HOSPICE. PT'S SPOUSE TALKED TO PT AT LENGTH STATING THAT HE TOLD THE DOCTOR HE WANTS HOSPICE. PT STATES HE DOES NOT [facility] NOW. CM OFFERED TO HAVE HOSPICE COME AND PROVIDE FURTHER INFORMATION, PT STATES HE DOES NOT WANT TO TALK TO ANYONE ABOUT HOSPICE. PT'S INFORMED CM THAT SHE IS NOT GOING TO BE ABLE TO DO HOSPICE AT HOME SHE WOULD HAVE TO SELL FURNITURE TO GET A HOSPITAL BED IN THE HOME AND HIRE CAREGIVERS. CM DISCUSSED GOING TO [facility] FOR HOSPICE OR REHAB. PT'S SPOUSE REPORTS PT WILL NOT GO BACK TO [facility] HE WAS THERE AND DID NOT RECEIVE GOOD CARE. SHE HAS HEARD A BAD REPORT ON [facility]. PT'S SPOUSE THINKS THAT PT COULD GO TO INPATIENT HOSPICE AT [facility]. CM EXPLAINED CRITERIA FOR INPATIENT HOSPICE AND THAT PT HAS REFUSED HOSPICE AT THIS TIME. CM FURTHER EXPLAINED TO PT AND SPOUSE THAT IF PT IS NOT WANTING HOSPICE, HE THEN MUST PARTICIPATE WITH CARE AND DECISIONS AND WILL MOST LIKELY NEED [facility] FOR REHAB. PT'S SPOUSE INFORMED CM THAT SHE WILL DISCUSS OPTIONS WITH PT AND THE DOCTOR AND WILL LET CM KNOW WHAT THEY DECIDE. PT'S SPOUSE REPORTS THAT IF PT DOES NOT WANT HOSPICE, SHE WOULD LIKE PT TO HAVE INPATIENT REHAB AT [facility]. CM EXPLAINED THAT PT WOULD NEED TO BE ABLE TO PARTICIPATE IN THREE HOURS OF PROGRESSIVE THERAPY PER DAY. PT'S REPORTS THEY KNOW OF THE PROGRAM AND THEY WILL BE ABLE TO HELP PT REGAIN FUNCTIONING. CM WAITING ON PT AND TO DECIDE REGARDING HOSPICE OR [facility]IOR [facility]IVING REHAB OR INPATIENT REHAB AT [facility]. Traffic Control Technician: Sheldon Kennedy DCP- Discharge Planning Updated by [id number]: Mirna Slaughter on 05/07/19 6:[address] Patient Name: FRANCISCA GRISSOM Admission Status: ER Accout number: [id number] Admission Date: 05-04-2019 : 1930 Admission Diagnosis:PNEUMONIA, UNSPECIFIED ORGANISM Attending: MARY SANON Current LOS: 3 Anticipated DC Date: Planned Disposition: Home Primary Insurance: MEDICARE A & B Discharge Planning Comments: CM met with patient and spouse (Juan Antonio Hampton) at bedside after explaining CM role and obtaining verbal consent. Patient lives at home with his where he is partially dependent of his care and plans to return there upon discharge. Spouse feels this would be a safe discharge. CM discussed availability / needs of home health and medical equipment. Juan Antonio Hampton states that they have [facility] and plan to resume care with them upon discharge. RAVINDRA signed. Denies any discharge needs at this time. Patient will have his drive him home upon discharge. CM will continue to follow and assist as needed with discharge planning / needs. Traffic Control Technician: Mirna Slaughter DCPIA - Discharge Planning Initial Assessment Updated by [id number]: Mirna Slaughter on 05/07/19 7:03 pm * Is the patient Alert and Oriented? Yes * How many steps to enter\\exit or inside your home? * PCP CONSTANTIN * [facility] * Preadmission Environment Home with Family * ADLs Partial Dependent * Partial ADLs (Assistance needed) Ambulation Bathing Dressing Eating Medication Management Toileting Transfers * Other Equipment WALKER, W/C, GAIT BELT, SC * List name and contact numbers for known caregivers / representatives who currently or will assist patient after discharge: JUAN ANTONIO HAMPTON - SPOUSE- [phone], * Verbal permission to speak to the caregivers and representatives has been obtained from the patient. Yes * Community resources currently utilized Home Health * Please name any agencies selected above. [facility] * Additional services required to return to the preadmission environment? No * Can the patient safely return to the preadmission environment? Yes * Has this patient been hospitalized within the prior 30 days at any hospital? No Coverage Notice Reviewer: [id number] - Mirna Slaughter Notice Issued Date-Time: 05/07/2019 13:07 Notice Type: Patient Choice Letter Notice Delivered To: Family Member Relationship to Patient: Spouse Vice President Education Name: juan antonio hampton Delivery Method: HAND - Hand Delivered Manjula Days: Prior Verbal Notification: Recipient Understood Notice: Yes Recipient Signature: Yes Med Rec Note Co-signed by Attending: Coverage Notice Comment: Reviewer: [id number] - Sheldon Kennedy Notice Issued Date-Time: 05/13/2019 12:10 Notice Type: IM Discharge Notice Notice Delivered To: Family Member Relationship to Patient: Spouse Vice President Education Name: JUAN ANTONIO FRANZ Delivery Method: HAND - Hand Delivered Manjula Days: Prior Verbal Notification: Recipient Understood Notice: Yes Recipient Signature: Yes Med Rec Note Co-signed by Attending: Coverage Notice Comment: Last DP export: 05/15/19 8:27 a Patient Name: FRANCISCA GRISSOM Page 00277 at 1117 All edits/amendments must be made on the electronic document DICTATION DATE: 05/15/191116 INTERNAL MEDICINE DOCTOR: ESPERANZA 05/15/19 111 RPT#: [id number] DC DATE: STATUS: ADM IN [facility] [address] [place] [address] END OF REPORT
--- NOTE | 2019-05-15 11:25 | MORECARE ---
CASE MANAGEMENT DISCHARGE SUMMARY PATIENT: FRANCISCA GRISSOM III UNIT: [id number] ADM DATE: 05/04/19 AGE: 88 : [birth year] SEX: M ROOM/BED: D.2103 AUTHOR: ARSENIO JOSHUA PHYSICIAN: REFERRING PHYSICIAN: MARY SANON MD DATE OF SERVICE: 05/15/19 Discharge Plan Patient Name: FRANCISCA GRISSOM Facility: [facility]:[place] : 1930 Planned Disposition: [facility] Facility Anticipated Discharge Date: 05/15/19 Discharge Date: Expected LOS: 11 Initial Reviewer: [id number] Initial Review Date: 05/07/2019 Generated: 05/15/19 12:24 pm Comments DCP- Discharge Planning Updated by [id number]: Sheldon Kennedy on 05/15/19 10:[address] Patient Name: FRANCISCA GRISSOM Encounter No: [id number] : 1930 Primary Insurance: MEDICARE A & B Anticipated DC Date: 05-15-2019 Planned Disposition: [facility] Facility External Planned Provider: [facility], MEDICARE REHAB BED DCP follow-up note: CM RECEIVED DISCHARGE ORDER, SPOKE TO PT AND SPOUSE IN ROOM, BOTH IN AGREEMENT WITH [facility]CHARGE TO [facility]. CM NOTIFIED [facility] WHO WILL ARRANGE TRANSPORT FOR STERILE PREPARATION TECHNICIAN TODAY. CM FAXED DISCHARGE INFOMATION TO [facility] AT [phone]. NURSE REPORT TO BE CALLED TO [facility] AT [phone]. [facility] TO ARRANGE TRANSPORTATION. GARIMA Bray DCP- Discharge Planning Updated by [id number]: Sheldon Kennedy on 05/15/19 8:[address] Patient Name: FRANCISCA GRISSOM Encounter No: [id number] : 1930 Primary Insurance: MEDICARE A & B Anticipated DC Date: 05-15-2019 Planned Disposition: [facility] Facility External Planned Provider: [facility], MEDICARE REHAB BED DCP follow-up note: [facility] , WHO INFORMED CM THAT PT HAS BEEN ACCEPTED FOR SKILLED CARE. CM CALLED AND NOTIFED DR. KILLIAN WHO PLANS TO DISCHARGE TODAY TO [facility]. CM SPOKE TO PT AND SPOUSE IN ROOM, INFORMED THAT [facility] ACCEPTED. PT'S SPOUSE ASKED PT IF HE WANTS HOSPICE AT HOME OR SKILLED CARE AT [facility] WHERE HE HAS TO EAT AND PARTICIPATE WITH THERAPY, PT STATES HE WANTS TO GO TO [facility] AND TRY. PT'S SPOUSE INFORMED CM THAT SHE HAS ROOM CLEANED FOR MEDICAL EQUIPMENT AND THAT HOSPICE HAS APPROVED FOR HOME HOSPICE. CM NOTIFIED [facility] WHO STATES THAT PT'S SPOUSE IS TO CALL WHEN PT IS READY TO LEAVE [facility] AND THEY WILL RESUME ARRANGEMENTS FOR HOME HOSPICE. SPOUSE NOTIFIED WHO ASKED THAT CM NOTIFY [facility] OF ARRANGEMENTS. CM CALLED [facility], , NOTIFIED [facility]. FOR DISCHARGE, FAX DISCHARGE INFOMATION TO [facility] AT [phone]. NURSE REPORT TO BE CALLED TO [facility] AT [phone]. [facility] TO ARRANGE TRANSPORTATION. Sheldon Kennedy, CASE MANAGEMENT DCP- Discharge Planning Updated by [id number]: Sheldon Kennedy on 05/14/19 12:[address] Patient Name: FRANCISCA GRISSOM Encounter No: [id number] : 1930 Primary Insurance: MEDICARE A & B Anticipated DC Date: Planned Disposition: [facility] Facility External Planned Provider: [facility], MEDICARE SKILLED BED DCP follow-up note: CM SPOKE TO PT'S SPOUSE AT [facility]ES STATION. SHE WAS CRYING AND STATED THAT DR. KILLIAN TOLD HER THAT PT WILL NEED ASSISTED FACILITY. MIGUEL DISCUSSED THIS WITH PT'S SPOUSE WHO INFORMED CM THAT SHE HAS MADE A DECISION TO REFER PT TO [facility] FOR SKILLED CARE. CM EXPLAINED THAT PT WILL HAVE TO HAVE "SKILLED NEED" FOR MEDICARE TO PAY FOR THE PLACEMENT. CM EXPLAINED DIFFERENCE BETWEEN "SKILLED" AND ENGINEER SYSTEMS CARE IN ASSISTED FACILITY. PT'S SPOUSE REPORTS THAT THEY ARE RETIRED AND ON FIXED INCOME. CM EXPLAINED THAT [facility] WOULD DISCUSS OPTIONS AND FINANCES WITH HER. CHOICE SIGNED FOR [facility]. AFTER A SHORT TIME, PT'S SPOUSE CAME BACK TO CM AND ASKED THAT CM FAX REFERRAL FOR [facility] SHE WANTS PT EVALUATED FOR HOSPICE INPATIENT HOSPICE AT [place]. CM SPOKE TO [facility], NOTIFIED OF REFERRAL AND FAXED REFERRAL TO [facility] AT [phone]. CM CALLED AND SPOKE TO AMADO AT [facility], , DISCUSSED REFERRAL AND FAXED REFERRAL TO [facility] AT [phone]. CM WAITING HOSPICE SCREENING AND ADMISSION DETERMINATION FROM [facility]. CM WAITING ADMISSION DETERMINATION FOR SKILLED CARE FROM [facility]. Sheldon Kennedy, CASE MANAGEMENT DCP- Discharge Planning Updated by [id number]: Sheldon Kennedy on 05/13/19 3:[address] Patient Name: FRANCISCA GRISSOM Admission Status: ER Accout number: [id number] Admission Date: 05-04-2019 : 1930 Admission Diagnosis:PNEUMONIA, UNSPECIFIED ORGANISM Attending: MARY SANON Current LOS: 9 Anticipated DC Date: Planned Disposition: Home Primary Insurance: MEDICARE A & B Discharge Planning Comments: CM RECEIVED HOSPICE ORDER, MET WITH PT AND SPOUSE IN ROOM. FRANCISCA GRISSOM provided verbal consent to discuss current and ongoing needs with/in the presence of: SPOUSE, ASHLEY HAMPTON. ASHLEY HAMPTON REPORTS THEY ARE , JUST NOT IN THE COURTHOUSE. ASHLEY HAMPTON REPORTS PT TOLD THE DOCTOR THIS MORNING HE HAS GIVEN UP AND IS READY FOR HOSPICE. THEY ARE CONSIDERING [facility] PT WAS ON THE BOARD FOR A COUPLE OF YEARS FOR [facility] OR [facility] DR. KLEIN IS THE DOCTOR THERE. CM DISCUSSED HOSPICE OPTIONS, PROVIDERS AND LOCATIONS. PT REPORTS UNDERSTANDING HOSPICE. PT STATES "NO". CM ASKED PT TO CLAIRIFY HIS NO ANSWER, PT STATES HE DOES NOT WANT HOSPICE. PT'S SPOUSE TALKED TO PT AT LENGTH STATING THAT HE TOLD THE DOCTOR HE WANTS HOSPICE. PT STATES HE DOES NOT [facility] NOW. CM OFFERED TO HAVE HOSPICE COME AND PROVIDE FURTHER INFORMATION, PT STATES HE DOES NOT WANT TO TALK TO ANYONE ABOUT HOSPICE. PT'S INFORMED CM THAT SHE IS NOT GOING TO BE ABLE TO DO HOSPICE AT HOME SHE WOULD HAVE TO SELL FURNITURE TO GET A HOSPITAL BED IN THE HOME AND HIRE CAREGIVERS. CM DISCUSSED GOING TO ASSISTED FACILITY FOR HOSPICE OR REHAB. PT'S SPOUSE REPORTS PT WILL NOT GO BACK TO [facility] HE WAS THERE AND DID NOT RECEIVE GOOD CARE. SHE HAS HEARD A BAD REPORT ON [facility]. PT'S SPOUSE THINKS THAT PT COULD GO TO INPATIENT HOSPICE AT [facility]. CM EXPLAINED CRITERIA FOR INPATIENT HOSPICE AND THAT PT HAS REFUSED HOSPICE AT THIS TIME. CM FURTHER EXPLAINED TO PT AND SPOUSE THAT IF PT IS NOT WANTING HOSPICE, HE THEN MUST PARTICIPATE WITH CARE AND DECISIONS AND WILL MOST LIKELY NEED ASSISTED FACILITY FOR REHAB. PT'S SPOUSE INFORMED CM THAT SHE WILL DISCUSS OPTIONS WITH PT AND THE DOCTOR AND WILL LET CM KNOW WHAT THEY DECIDE. PT'S SPOUSE REPORTS THAT IF PT DOES NOT WANT HOSPICE, SHE WOULD LIKE PT TO HAVE INPATIENT REHAB AT [facility]. CM EXPLAINED THAT PT WOULD NEED TO BE ABLE TO PARTICIPATE IN THREE HOURS OF PROGRESSIVE THERAPY PER DAY. PT'S REPORTS THEY KNOW OF THE PROGRAM AND THEY WILL BE ABLE TO HELP PT REGAIN FUNCTIONING. CM WAITING ON PT AND TO DECIDE REGARDING HOSPICE OR ASSISTED REHAB OR INPATIENT REHAB AT [facility]. Machine Featheredger And Reducer: Sheldon Kennedy DCP- Discharge Planning Updated by [id number]: Mirna Slaughter on 05/07/19 6:[address] Patient Name: FRANCISCA GRISSOM Admission Status: ER Accout number: [id number] Admission Date: 05-04-2019 : 1930 Admission Diagnosis:PNEUMONIA, UNSPECIFIED ORGANISM Attending: MARY SANON Current LOS: 3 Anticipated DC Date: Planned Disposition: Home Primary Insurance: MEDICARE A & B Discharge Planning Comments: CM met with patient and spouse (Ashley Hampton) at bedside after explaining CM role and obtaining verbal consent. Patient lives at home with his where he is partially dependent of his care and plans to return there upon discharge. Spouse feels this would be a safe discharge. CM discussed availability / needs of home health and medical equipment. Ashley Hampton states that they have [facility] and plan to resume care with them upon discharge. RAVINDRA signed. Denies any discharge needs at this time. Patient will have his drive him home upon discharge. CM will continue to follow and assist as needed with discharge planning / needs. Machine Featheredger And Reducer: Mirna Slaughter DCPIA - Discharge Planning Initial Assessment Updated by [id number]: Mirna Slaughter on 05/07/19 7:03 pm * Is the patient Alert and Oriented? Yes * How many steps to enter\\exit or inside your home? * PCP CONSTANTIN * Pharmacy [facility] * Preadmission Environment Home with Family * ADLs Partial Dependent * Partial ADLs (Assistance needed) Ambulation Bathing Dressing Eating Medication Management Toileting Transfers * Other Equipment WALKER, W/C, GAIT BELT, SC * List name and contact numbers for known caregivers / representatives who currently or will assist patient after discharge: ASHLEY HAMPTON - SPOUSE- [phone], * Verbal permission to speak to the caregivers and representatives has been obtained from the patient. Yes * Community resources currently utilized Home Health * Please name any agencies selected above. [facility] * Additional services required to return to the preadmission environment? No * Can the patient safely return to the preadmission environment? Yes * Has this patient been hospitalized within the prior 30 days at any hospital? No Coverage Notice Reviewer: [id number] Viktor Slaughter Notice Issued Date-Time: 05/07/2019 13:07 Notice Type: Patient Choice Letter Notice Delivered To: Family Member Relationship to Patient: Spouse M1 Armor Crewman Name: ashley hampton Delivery Method: HAND - Hand Delivered Manjula Days: Prior Verbal Notification: Recipient Understood Notice: Yes Recipient Signature: Yes Med Rec Note Co-signed by Attending: Coverage Notice Comment: Reviewer: [id number] - Sheldon Kennedy Notice Issued Date-Time: 05/13/2019 12:10 Notice Type: IM Discharge Notice Notice Delivered To: Family Member Relationship to Patient: Spouse M1 Armor Crewman Name: ASHLEY FRANZ Delivery Method: HAND - Hand Delivered Manjula Days: Prior Verbal Notification: Recipient Understood Notice: Yes Recipient Signature: Yes Med Rec Note Co-signed by Attending: Coverage Notice Comment: Last DP export: 05/15/19 10:17 a Patient Name: FRANCISCA GRISSOM Page [phone] at 1125 All edits/amendments must be made on the electronic document DICTATION DATE: 05/15/19 112 EXTRUDER OPERATOR MULTIPLE: ESPERANZA 05/15/19 1124 RPT#: [id number] DC DATE: STATUS: ADM IN [facility] [address] [place] [address] END OF REPORT
--- NOTE | 2019-05-15 12:30 | NUR ---
BENJAMIN AT [facility] WAS GIVEN REPORT AT THIS TIME AND ALL QUESTIONED WERE ANSWERED
--- NOTE | 2019-05-15 13:40 | NUR ---
NOTIFIED [facility] OF NEED FOR AMBULANCE TRANSFER
--- NOTE | 2019-05-15 15:30 | NUR ---
CALLED [facility] AGAIN TO REMIND OF NEED FOR TRANSPORT. SPOKE WITH ROMAINE AGAIN BUT THEY HAVE HAD SOME EMERGENT TRANSFERS
--- NOTE | 2019-05-15 16:20 | NUR ---
TRANSPORT PER AMBULACE AT THIS TIME. NO CHANGE IN CONDITION NOTED. HE ANSWERS TO NAME. RESP EVEN WITHOUT LABOR. AT BEDSIDE AND AGREES WITH TRANSFER. SHE HAS SIGNED DISCHARGE PAPERS AND THEY WERE EXPLAINED TO HER IN DETAIL.
== END 2019-05-15 16:23 | DRG 193 ==
LOC: D.ER 15:23 → D.ICU 19:01 → D.M2 19:01 → D.ICU 05-05 22:23 → D.M2 05-09 11:05
PROVIDERS: Family Medicine; Internal Medicine Gastroenterology; Internal Medicine Nephrology; ADMIT Family Medicine; ATTEND Family Medicine
DX: J18.9 Pneumonia, unspecified organism (principal); R40.2124 Coma scale, eyes open, to pain, 24 hours or more after hospital admission; R40.2214 Coma scale, best verbal response, none, 24 hours or more after hospital admission; E87.1 Hypo-osmolality and hyponatremia; G45.8 Other transient cerebral ischemic attacks and related syndromes; Y95 Nosocomial condition; R40.2354 Coma scale, best motor response, localizes pain, 24 hours or more after hospital admission; R07.89 Other chest pain; I25.10 Atherosclerotic heart disease of native coronary artery without angina pectoris; D64.9 Anemia, unspecified; I35.0 Nonrheumatic aortic (valve) stenosis; R33.9 Retention of urine, unspecified; N40.0 Benign prostatic hyperplasia without lower urinary tract symptoms; E03.9 Hypothyroidism, unspecified; R97.20 Elevated prostate specific antigen [PSA]

== ENCOUNTER 2019-05-21 11:05 | Inpatient (IN) | payer MEDICARE, OTHER ==
[~2019-05-21] VITALS: Ht 167.6 cm; Wt 60.3 kg
[~2019-05-21 11:05] MED LIST changes: +FLUTICASONE PRO16 GM NASAL; +LEVOTHYROXINE75 MCG PO; +MUCINEX600 MG PO; +PROTONIX40 MG PO; +THERMOTABS 1 GM1 GM PO
[2019-05-21] MEDS ORDERED: SYNTHROID88 MCG PO (11:16)
[2019-05-21] MEDS ORDERED: LEVOFLOXACIN500 MG PO (11:18)
[2019-05-21] MEDS ORDERED: DOCUSATE PO (11:19)
[2019-05-21] MEDS ORDERED: FAMOTIDINE10 MG PO (11:19)
[2019-05-21 11:58] LABS: BASOPHILS 0.4 % (0-2); EOSINOPHILS 25.7 % (0-7); IMMATURE GRANULOCYTES 0.4 % (0-5); LYMPHOCYTES 15.4 % (15-50); MCH 27.8 pg (26.0-34.0); MCHC 32.1 g/dL (31.0-37.0); MCV 86.4 fL (80.0-100.0); MEAN PLATELET VOLUME 9.1 fL (7.4-10.4); MONOCYTES 9.7 % (2-11); NEUTROPHILS 48.4 % (40-80); PLATELET COUNT 382 10x3/uL (130-400); RBC 3.24 10x6/uL (4.20-6.10); RDW 15.3 % (11.5-14.5); WBC 11.3 10x3/uL (4.8-10.8)
[2019-05-21 12:26] LABS: ALKALINE PHOSPHATASE 79 U/L (46-116); ALT (SGPT) 28 U/L (10-68); BILIRUBIN - TOTAL 0.36 mg/dL (0.2-1.3); CALC OSMOLALITY 298 mosm/kg (275-300); CALCIUM 9.6 mg/dL (8.5-10.1); CARBON DIOXIDE 30.5 mmol/L (21.0-32.0); CHLORIDE - SERUM 109 mmol/L (98-107); CREATININE - SERUM 1.6 mg/dL (0.6-1.3); GLUCOSE 124 mg/dL (74-106); POTASSIUM - SERUM 3.7 mmol/L (3.5-5.1); PROTEIN - SERUM 6.3 g/dL (6.4-8.2); SODIUM 147 mmol/L (136-145); UREA NITROGEN 28 mg/dL (7-18); eGFR NON AFRICAN AMERICAN 43 mL/min (90-120)
[2019-05-21 12:29] LABS: CKMB 0.3 U/L (0.0-3.6); CREATINE KINASE 55 UL (21-232); TROPONIN-I 0.019 ng/mL (0.000-0.060)
[2019-05-21 13:04] LABS: APTT 48.2 SECONDS (22.8-39.4); INR 1.74 (0.85-1.17); PROTIME 19.7 SECONDS (11.6-15.0)
[2019-05-21 13:28] LABS: APPEARANCE HAZY (CLEAR); BACTERIA FEW /hpf (NONE SEEN); BILIRUBIN NEGATIVE (NEGATIVE); COLOR YELLOW (YELLOW); EPITHELIAL CELLS 0-5 /hpf (0-5); GLUCOSE NEGATIVE (NEGATIVE); KETONE NEGATIVE (NEGATIVE); NITRITE NEGATIVE (NEGATIVE); PROTEIN 1+ mg/dL (NEGATIVE); SPECIFIC GRAVITY 1.025 (1.005-1.020); UROBILINOGEN NORMAL (NORMAL); WHITE CELLS - URINE 0-5 /hpf (0-5)
[2019-05-21 13:29] LABS: MUCUS >1+ /lpf (NONE SEEN)
--- NOTE | 2019-05-21 13:30 | NUR ---
WENT TO GIVE MEDICATION AND XRAY TOOK PT AND STATED THEY WOULD BE BACK IN 10 MINS
--- NOTE | 2019-05-21 15:44 | NUR ---
RCVED PT FROM ER VIA HOSPITAL BED, HOSPITAL STAFF, AT HIS SIDE. IV LOCATED TO LEFT FOREARM RUNNING NS @ 500ML, AND VANC. CURRENTLY RCVING 4L VIA NC. NONPRODUCTIVE COUGH PRESENT. PT ANSWERS AND RESPONDS TO ABOUT 50% OF QUESTIONS, SPEECH IS GARBLED/QUIET. STARES OFF INTO SPACE THE MAJORITY OF THE TIME, BUT THEN WILL MAKE AN APPROPRIATE STATEMENT OUT OF THE BLUE. IS AT THE BEDSIDE. BED LOW, CALL LIGHT IN REACH, RAILS UP X 2, WILL CONTINUE TO MONITOR.
[2019-05-21 16:03] VITALS: BP 126/70; BMI 21.5
--- NOTE | 2019-05-21 19:45 | NUR ---
LYING IN BED WITH EYES CLOSED. NONVERBAL. AT BEDSIDE. RESP SHALLOW, IRREG. OCC NONPROD COUGH NOTED. SALINE LOCK NOTED TO LT HAND. O2 @ 4L/NC. LAFLEUR CATH PATENT AND DRAINING YELLOW URINE. MEPILIX DSRG NOTED TO BUTTOCKS AND LT HEEL WOUND. BBS CTA BUT DIMINISHED IN BLL. BRUISES NOTED TO BUE AND BLE ARE DISCOLORED BROWN. GEN EDEMA NOTED. SR ELEVATED X2. CL IN REACH.
[2019-05-21 20:14] VITALS: BP 118/75
--- NOTE | 2019-05-21 23:00 | NUR ---
RESTING QUIETLY WITH EYES CLOSED. RESP SHALLOW, IRREG. OCC COUGH NOTED. KEEPS EYES CLOSED. O2 @ 4L/NC. CL IN REACH.
[2019-05-22 00:41] VITALS: BP 112/71
--- NOTE | 2019-05-22 01:25 | NUR ---
EARLIER DURING MEDICATION ADMINISTRATION, HE WAS UNABLE TO TAKE IN PO, AT THIS TIME, HE IS ABLE TO COMMUNICATE AND TAKE IN ORALLY SO PREVIOUSLY REFUSED MEDICINE IS BEING ADMINISTERED PER PT REQUEST. TOOK IN HYDRATION AND NUTRITION WITH FULL ASSIST FROM STAFF. WAS ABLE TO SLIGHTLY COMMUNICATE WITH NURSE, STATED HE WASN'T SURE WHERE HE WAS OR WHY HE WAS HERE. ATTEMPTED TO REDIRECT AND ENCOURAGE PT ON STAY HERE. WILL NOTE ANY CHANGE.
--- NOTE | 2019-05-22 04:21 | NUR ---
I have reviewed this patient and I concur with the Shift Assessment completed by the Licensed Practical Nurse today this shift.
[2019-05-22 04:35] VITALS: BP 120/69
--- NOTE | 2019-05-22 05:16 | NUR ---
CONTINUES TO HAVE A DRY COUGH AT TIMES, APPEARS TO CAUSE DISCOMFORT TO HIM WHILE COUGHING, ABLE TO RECOVER BY SELF AT THIS TIME. NURSE AVAILABLE TO OFFER SUPPORT IF NEEDED. WILL CONTINUE TO OBSERVE AND NOTE ANY CHANGE.
[2019-05-22 06:56] LABS: BASOPHILS 0.2 % (0-2); EOSINOPHILS 0.5 % (0-7); HEMATOCRIT 27.7 % (42.0-54.0); HEMOGLOBIN 8.7 g/dL (13.5-17.5); IMMATURE GRANULOCYTES 0.2 % (0-5); LYMPHOCYTES 11.5 % (15-50); MCH 27.8 pg (26.0-34.0); MCHC 31.4 g/dL (31.0-37.0); MEAN PLATELET VOLUME 8.9 fL (7.4-10.4); MONOCYTES 2.3 % (2-11); NEUTROPHILS 85.3 % (40-80); PLATELET COUNT 315 10x3/uL (130-400); RBC 3.13 10x6/uL (4.20-6.10); RDW 15.2 % (11.5-14.5)
[2019-05-22 07:11] LABS: MCV 88.5 fL (80.0-100.0); WBC 5.8 10x3/uL (4.8-10.8)
[2019-05-22 07:22] LABS: ANION GAP 15.4 mmol/L (8-16); BILIRUBIN - TOTAL 0.24 mg/dL (0.2-1.3); CALCIUM 8.8 mg/dL (8.5-10.1); CREATININE - SERUM 1.4 mg/dL (0.6-1.3); PROTEIN - SERUM 5.4 g/dL (6.4-8.2)
[2019-05-22 07:23] LABS: POTASSIUM - SERUM 4.4 mmol/L (3.5-5.1)
[2019-05-22 08:28] VITALS: BP 158/72
--- NOTE | 2019-05-22 10:42 | NUR ---
ASSISTED ANIMAL EVISCERATOR WITH PATIENTS BATH. DRESSINGS INTACT TO LEFT HEEL PU AND COCCYX. PATIENT IS MORE ALERT AND TALKING WITH SPOUSE IN ROOM. CL IN REACH
[2019-05-22 12:37] VITALS: BP 115/71
[2019-05-22 14:43] VITALS: Ht 167.6 cm; Wt 60.3 kg
--- NOTE | 2019-05-22 16:01 | NUR ---
OT NOTE: PT COMPLETED BED MOB WITH MAX A. PT COMPETED BUE AROM AX. PT IS VERY WEAK WITH POOR TRUNK CONTROL. THANK YOU, SHILOH LUQUE
[2019-05-22 16:45] VITALS: BP 145/61
--- NOTE | 2019-05-22 20:00 | NUR ---
ALERT, RESTING IN BED, NON PRODUCTIVE COUGH NOTED, SEE SHIFT ASSESSMENT, CALL LIGHT IN REACH,
[2019-05-22 20:47] VITALS: BP 154/84
[2019-05-23 00:36] VITALS: BP 114/62
[2019-05-23 05:08] VITALS: BP 129/56
--- NOTE | 2019-05-23 07:22 | NUR ---
ALERT WITH CONFUSION. LUNGS DIMINISHED BILATERALLY. HEART SOUNDS S1 AND S2 HEARD IN ALL MARX. TELEMETRY IN PLACE SINUS RYTHM. BOWEL SOUNDS ACTIVE X 4. LAFLEUR PATENT. IV TO LEFT HAND PATENT WITHOUT REDNESS. EXCORIATION NOTED TO BOTTOM. WILL COVER WITH MEPILEX. SKIN OTHERWISE INTACT. DENIES PAIN. DENIES NEEDS. BED LOW. FALL PRECAUTIONS IN PLACE. CALL MCNEILL AND PERSONAL ITEMS IN REACH. WILL CONTINUE TO MONITOR.
[2019-05-23 07:59] LABS: ANION GAP 11.5 mmol/L (8-16); CALCIUM 8.2 mg/dL (8.5-10.1); CARBON DIOXIDE 27.5 mmol/L (21.0-32.0); CREATININE - SERUM 1.2 mg/dL (0.6-1.3); VANCOMYCIN - RANDOM 10.2 ug/mL (10.0-20.0)
[2019-05-23 08:50] VITALS: BP 126/81
--- NOTE | 2019-05-23 10:32 | NUR ---
RESTING IN BED. AT BEDSIDE. DENIES PAIN. DENIES NEEDS. WILL CONTINUE TO MONITOR.
--- NOTE | 2019-05-23 10:49 | NUR ---
PT CALLED TO ASSIST BACK TO BED PER REQUEST.
--- NOTE | 2019-05-23 12:00 | NUR ---
SPOKE WITH DR KILLIAN'S NURSE TO LET KNOW PATIENT HAD RUN OF 7 VTACH. PATIENT BLOOD PRESSURE 107/52. HR 88. STATES WILL INFORM DR KILLIAN. WILL CONTINUE TO MONITOR PATIENT.
[2019-05-23 12:14] VITALS: BP 104/52
--- NOTE | 2019-05-23 12:41 | NUR ---
OT NOTE: PT ALERT BUT REMAINS VERY CONFUSED. BED MOB TO EOB WITH MOD ASSIST; STATIC SITTING ON EOB WITH SBA. PT ATTEMPTING TO SCOOT TO EOB WITHOUT SUPPORT; ABLE TO STAND WITH MIN ASSIST BUT TRANSFERRED WITH MOD ASSIST FROM BED TO CHAIR. DESIRE CHAKRABORTY, OTR/L
--- NOTE | 2019-05-23 14:54 | NUR ---
RESTING IN BED. TURNED TO RIGHT SIDE PER NURSING AND BOTTOM COVERED WITH MEPILEX. DENIES PAIN. DENIES NEEDS. AT BEDSIDE. WILL CONTINUE TO MONITOR.
[2019-05-23 15:53] VITALS: BP 108/48
--- NOTE | 2019-05-23 16:13 | NUR ---
PATIENT SLEEPING. AT BEDSIDE. WILL CONTINUE TO MONITOR.
--- NOTE | 2019-05-23 18:29 | NUR ---
RESTING IN BED. AT BEDSIDE. DENIES PAIN. DENIES NEEDS. BED LOW. FALL PRECAUTIONS IN PLACE. CALL MCNEILL AND PERSONAL ITEMS REACH. WILL CONTINUE TO MONITOR.
[2019-05-23 19:54] VITALS: BP 117/54
--- NOTE | 2019-05-23 20:00 | NUR ---
RESTING IN BED WITH NO ACUTE SIGNS OF DISRESS. CONFUSED TO TIME, PLACE AND SITUATION. LAFLEUR IN PLACE AND IV TO THE LT HAND, CDI. DRESSING APPLIED TO BUTTOCK. SOME BRUSING NOTED ON UPPER EXTREMITIES. FALL PRECAUTIONS IN PLACE. NO OTHER NEEDS NOTED AT THIS TIME. WILL CONTINUE TO MONITOR.
[2019-05-24] VITALS: BP 119/40
[2019-05-24 04:00] VITALS: BP 120/51
--- NOTE | 2019-05-24 05:33 | NUR ---
CALLED DOWN TO RESPIRATORY DUE TO PT COUGHING HARD AND HEAR WEEZING IN LUNG FEILD. WILL CONTINUE TO MONITOR.
[2019-05-24 06:35] LABS: ANION GAP 11.9 mmol/L (8-16); CALCIUM 7.8 mg/dL (8.5-10.1); CARBON DIOXIDE 29.9 mmol/L (21.0-32.0); CREATININE - SERUM 1.2 mg/dL (0.6-1.3); POTASSIUM - SERUM 3.8 mmol/L (3.5-5.1)
[2019-05-24 07:03] LABS: BASOPHILS 0 % (0-2); EOSINOPHILS 0 % (0-7); IMMATURE GRANULOCYTES 0.5 % (0-5); LYMPHOCYTES 5.7 % (15-50); MCH 27.6 pg (26.0-34.0); MCHC 32.2 g/dL (31.0-37.0); MEAN PLATELET VOLUME 9.4 fL (7.4-10.4); MONOCYTES 2.7 % (2-11); NEUTROPHILS 91.1 % (40-80); PLATELET COUNT 304 10x3/uL (130-400); RDW 15.1 % (11.5-14.5)
[2019-05-24 07:04] LABS: WBC 10.8 10x3/uL (4.8-10.8)
[2019-05-24 07:06] LABS: HEMATOCRIT 21.4 % (42.0-54.0); HEMOGLOBIN 6.9 g/dL (13.5-17.5); MCV 85.6 fL (80.0-100.0)
--- NOTE | 2019-05-24 07:45 | NUR ---
DR KILLIAN NOTIFIED OF HGB 6.9, ORDER TO TRANSFUSE 2 UNITS PRBC RECIEVED
[2019-05-24 08:01] VITALS: BP 129/53
--- NOTE | 2019-05-24 09:59 | NUR ---
PATIENT REPOSITIOND WITH HEAD OF BED ELEVATED. TOLERATED AM MEAL WELL WITH ASSISTING. PATIENT DENIES PAIN, NOTED COUGH THAT IS NON-PRODUCTIVE. COURSE BREATH SOUNDS. CL IN REACH. PATIETN TURNED Q 2 HOURS
--- NOTE | 2019-05-24 11:16 | NUR ---
FIRST UNIT OF BLOOD STARTED WITH NO ISSUES, V/S STABLE
--- NOTE | 2019-05-24 12:57 | MORECARE ---
CASE MANAGEMENT DISCHARGE SUMMARY PATIENT: FRANCISCA GRISSOM III UNIT: [id number] ADM DATE: 05/21/19 AGE: 88 : 29 SEX: M ROOM/BED: D.2236 AUTHOR: ARSENIO JOSHUA PHYSICIAN: REFERRING PHYSICIAN: DES KILLIAN MD DATE OF SERVICE: 05/24/19 Discharge Plan Patient Name: FRANICSCA GRISSOM [facility] [facility] 1930 Planned Disposition: SNF w Planned Readmission Anticipated Discharge Date: Discharge Date: Expected LOS: Initial Reviewer: [id number] Initial Review Date: 05/24/2019 Generated: 05/24/19 1:57 pm External Providers External Provider: [facility] Next Contact Date: Service Request Date: Service Type: Resolution: Reviewer: Comments: Coverage Notice Reviewer: [email or web address] Viktor Castillo Notice Issued Date-Time: 05/24/2019 12:53 Notice Type: Patient Choice Letter Notice Delivered To: Family Member Relationship to Patient: Life Partner Manager Transport Name: Ashley Hernandez Delivery Method: HAND - Hand Delivered Manjula Days: Prior Verbal Notification: Recipient Understood Notice: Yes Recipient Signature: Yes Med Rec Note Co-signed by Attending: Coverage Notice Comment: RAVINDRA for [facility] Patient Name: FRANCISCA GRISSOM Page [phone] at 1257 All edits/amendments must be made on the electronic document DICTATION DATE: 05/24/19 1257 MUD ANALYSIS WELL LOGGING CAPTAIN: ESPERANZA 05/24/19 1257 RPT#: [id number] DC DATE: STATUS: ADM IN [facility] [address] [place] [address] END OF REPORT
[2019-05-24 13:00] VITALS: BP 148/60
--- NOTE | 2019-05-24 13:15 | MORECARE ---
CASE MANAGEMENT DISCHARGE SUMMARY PATIENT: FRANCISCA GRISSOM III UNIT: [id number] ADM DATE: 05/21/19 AGE: 88 : 29 SEX: M ROOM/BED: D.2236 AUTHOR: ARSENIO JOSHUA PHYSICIAN: REFERRING PHYSICIAN: DES KILLIAN MD DATE OF SERVICE: 05/24/19 Discharge Plan Patient Name: FRANCISCA GRISSOM [facility] [facility] 1930 Planned Disposition: SNF w Planned Readmission Anticipated Discharge Date: Discharge Date: Expected LOS: Initial Reviewer: [id number] Initial Review Date: 05/24/2019 Generated: 05/24/19 2:14 pm Comments DCP- Discharge Planning Updated by [email or web address]: Julienne Castillo on 05/24/19 12:[address] Patient Name: FRANCISCA GRISSOM Admission Status: ER Accout number: [id number] Admission Date: 05-21-2019 : 1930 Admission Diagnosis:LOBAR PNEUMONIA, UNSPECIFIED ORGANISM Attending: DES KILLIAN Current LOS: 3 Anticipated DC Date: Planned Disposition: SNF w Planned Readmission Primary Insurance: MEDICARE A & B Discharge Planning Comments: CM met with patient and his "life partner" Ashley Concepcion in the room to discuss discharge planning/needs. He has been at [facility] for skilled therapy prior to coming here. States he was only there for 6 days before readmitting to the hospital. She states that they have been in [facility] before and was not happy with the care there and she would like him to return to [facility]. She states that he needs to get stronger prior to returning home with her. She states she does have people that are going to help her once she is able to take him home and plans on having [facility] after his skilled therapy is completed. I spoke with Rory with [facility] and he states they are following and he spoke with the yesterday and she will call them when ready for Hospice admission. She states "I want to give him a chance first." I called Mariaelena with [facility] and clinical faxed. Mariaelena states she will check on status for readmission. CM will continue to follow and assist with discharge planning/needs. Assembler Crimper: Julienne Castillo DCPIA - Discharge Planning Initial Assessment Updated by [id number]: Julienne Castillo on 05/24/19 12:57 pm * Is the patient Alert and Oriented? No * How many steps to enter\\exit or inside your home? 0/0 * PCP Dr. Killian * Pharmacy [facility] on [address] * Preadmission Environment Senior Living Facility * Facility Name [facility] * ADLs Total Dependent * Equipment Walker Wheelchair * List name and contact numbers for known caregivers / representatives who currently or will assist patient after discharge: Ashley Hernandez - life partner - [phone] or [phone] * Verbal permission to speak to the caregivers and representatives has been obtained from the patient. N/A * Community resources currently utilized None * Additional services required to return to the preadmission environment? No * Can the patient safely return to the preadmission environment? Yes * Has this patient been hospitalized within the prior 30 days at any hospital? Yes Coverage Notice Reviewer: [id number] - Julienne Castillo Notice Issued Date-Time: 05/24/2019 12:53 Notice Type: Patient Choice Letter Notice Delivered To: Family Member Relationship to Patient: Life Partner Indoor Landscape Architect Name: Ashley Hernandez Delivery Method: HAND - Hand Delivered Manjula Days: Prior Verbal Notification: Recipient Understood Notice: Yes Recipient Signature: Yes Med Rec Note Co-signed by Attending: Coverage Notice Comment: RAVINDRA for [facility] Last DP export: 05/24/19 11:57 am Patient Name: FRANCISCA GRISSOM Page [phone] at 1315 All edits/amendments must be made on the electronic document DICTATION DATE: 05/24/19 1314 INDUSTRIAL ARTS TEACHER: ESPERANZA 05/24/19 1314 RPT#: [id number] DC DATE: STATUS: ADM IN [facility] [address] [place] [address] END OF REPORT
--- NOTE | 2019-05-24 13:49 | NUR ---
NUTRITION F/U PT NOW ASSESSED WITH SEVERE MALNUTRITION OF CHRONIC ILLNESS R/T DX, PMH AEB 1)=/< 75% INTAKE EST ENERGY NEEDS =/> 1 MONTH 2)> 5% WT LOSS IN 1 MONTH (143# 05/06/19 > 133# CURRENT WILL CONTINUE TO PROVIDE AHA DIET, ENSURE. RD FOLLOWING
--- NOTE | 2019-05-24 14:30 | NUR ---
FIRST UNIT OF PRBC COMPLETE, SECOND UNIT STARTED WITH V/S STABLE AND PATIENT IN NO DISTRESS
--- NOTE | 2019-05-24 16:17 | NUR ---
OT NOTE: PT REQUIRED MAX A FOR SUPINE TO SIT. PT REQUIRED MAX A FOR SIT TO STAND. PT EXHIBITED LOW ACTIVITY TOLERANCE. THANK YOU, SHILOH LUQUE
--- NOTE | 2019-05-24 16:22 | NUR ---
OT NOTE: MAX ASSIST WITH BED MOB..ATTEMPTED UE AROM EXS, HOWEVER, DUE TO WEAKNESS AND CONFUSION, IT WAS MORE LIKE A/AROM. EOB SITTING WITH MAX ASSIST. DESIRE CHAKRABORTY, OTR/L
[2019-05-24 16:41] VITALS: BP 137/67
[2019-05-24 20:00] VITALS: BP 132/73
[2019-05-25] VITALS: BP 150/73
[2019-05-25 07:01] LABS: BASOPHILS 0 % (0-2); EOSINOPHILS 0 % (0-7); LYMPHOCYTES 7.9 % (15-50); MCH 27.7 pg (26.0-34.0); MCHC 33.1 g/dL (31.0-37.0); MEAN PLATELET VOLUME 9.6 fL (7.4-10.4); MONOCYTES 4.3 % (2-11); NEUTROPHILS 86.8 % (40-80); PLATELET COUNT 276 10x3/uL (130-400); RDW 16.3 % (11.5-14.5); WBC 9.9 10x3/uL (4.8-10.8)
[2019-05-25 07:05] LABS: HEMATOCRIT 28.1 % (42.0-54.0); HEMOGLOBIN 9.3 g/dL (13.5-17.5); MCV 83.6 fL (80.0-100.0); RBC 3.36 10x6/uL (4.20-6.10)
[2019-05-25 07:22] LABS: ANION GAP 12.7 mmol/L (8-16); CALCIUM 7.8 mg/dL (8.5-10.1); CARBON DIOXIDE 28.2 mmol/L (21.0-32.0); CREATININE - SERUM 1.1 mg/dL (0.6-1.3); POTASSIUM - SERUM 3.9 mmol/L (3.5-5.1)
[2019-05-25 12:58] VITALS: BP 122/78
[2019-05-25 16:07] VITALS: BP 149/65
--- NOTE | 2019-05-25 19:15 | NUR ---
LYING IN BED. RESTLESS.CONFUSED. ORIENTED TO SELF ONLY. TALKS INCOHERENTLY. RESP LABORED AND IRREG. O2 @ 3L/NC. NONPROD FREQUENT COUGH NOTED. SCDS IN USE BILAT. TELEMETRY SHOWS SR WITH RATE OF 85. BBS COARSE. BRUISES NOTED TO BUE. CHRONIC LAFLEUR CATH PATENT AND DRAINING CLOUDY YELLOW URINE. 1/2 NS @ 75 ML/HR INFUSING IN RT HAND WITHOUT DIFF. EGGCRATE MATTRESS IN USE. BED ALARM IN USE FOR PT SAFETY. SR ELEVATED X2. CL IN REACH.
[2019-05-25 19:45] VITALS: BP 145/74
[2019-05-26] VITALS (7 sets, daily range): BP systolic 106–153; BP diastolic 56–79
--- NOTE | 2019-05-26 01:14 | NUR ---
INCONT OF BOWELS. PERICARE PERFORMED. LINEN CHANGE PERFORMED AT THIS TIME. BED ALARM ON. CL IN REACH.
--- NOTE | 2019-05-26 01:15 | NUR ---
STAGE 2 NOTED TO BILAT BUTTOCKS UNDER DRSG. SOILED DRSG REMOVED AND MEPILEX APPLIED.
[2019-05-26 05:11] LABS: BASOPHILS 0 % (0-2); EOSINOPHILS 0 % (0-7); HEMATOCRIT 26.6 % (42.0-54.0); HEMOGLOBIN 8.7 g/dL (13.5-17.5); LYMPHOCYTES 5.4 % (15-50); MCH 27.6 pg (26.0-34.0); MCHC 32.7 g/dL (31.0-37.0); MCV 84.4 fL (80.0-100.0); MEAN PLATELET VOLUME 9.3 fL (7.4-10.4); MONOCYTES 3.4 % (2-11); NEUTROPHILS 90.2 % (40-80); PLATELET COUNT 255 10x3/uL (130-400); RBC 3.15 10x6/uL (4.20-6.10); RDW 16.2 % (11.5-14.5); WBC 8.9 10x3/uL (4.8-10.8)
[2019-05-26 05:20] LABS: CALCIUM 7.4 mg/dL (8.5-10.1); CHLORIDE - SERUM 112 mmol/L (98-107); CREATININE - SERUM 0.9 mg/dL (0.6-1.3); GLUCOSE 143 mg/dL (74-106); POTASSIUM - SERUM 3.7 mmol/L (3.5-5.1); SODIUM 147 mmol/L (136-145); eGFR NON AFRICAN AMERICAN 84 mL/min (90-120)
--- NOTE | 2019-05-26 05:21 | NUR ---
INCONT OF BOWELS. PERICARE AND LINENS CHANGED. PULLED UP IN THE BED. BED ALARM ON. CL IN REACH. NO DISTRESS. CONT CONFUSION.
[2019-05-26 05:44] LABS: CALC OSMOLALITY 300 mosm/kg (275-300); UREA NITROGEN 32 mg/dL (7-18)
--- NOTE | 2019-05-26 15:13 | NUR ---
I have reviewed this patient and I concur with the Shift Assessment completed by the Licensed Practical Nurse today this shift.
--- NOTE | 2019-05-26 19:35 | NUR ---
LYING IN BED. CONFUSED. RESTLESS. BED ALARM ON FOR PT SAFETY. HOB ELEVATED. RESP IRREG, LABORED. O2 @ 3L/NC. FREQUENT NONPROD COUGH NOTED. LAFLEUR CATH PATENT AND DRAINING CLOUDY YELLOW URINE. BRUISES NOTED TO BUE. SCDS IN USE BILAT. TELEMETRY SHOWS SR WITH BBB WITH RATE OF 72. 1/2 NS @ 75 ML/HR. INCONT OF BOWELS. PERICARE PERFORMED AND LINENS CHANGED. SR ELEVATED X2. CL IN REACH.
--- NOTE | 2019-05-26 23:00 | NUR ---
BED BATH GIVEN AND COMPLETE LINEN CHANGE.
[2019-05-27 04:00] VITALS: BP 154/90
--- NOTE | 2019-05-27 05:01 | NUR ---
LYING IN BED TALKING TO PEOPLE NOT PRESENT. NAGGING COUGH NOTED AND UNABLE TO COUGH UP ANYTHING.
[2019-05-27 05:06] LABS: BASOPHILS 0 % (0-2); EOSINOPHILS 0 % (0-7); HEMATOCRIT 28.2 % (42.0-54.0); HEMOGLOBIN 9.2 g/dL (13.5-17.5); IMMATURE GRANULOCYTES 0.7 % (0-5); LYMPHOCYTES 5.6 % (15-50); MCH 27.2 pg (26.0-34.0); MCHC 32.6 g/dL (31.0-37.0); MCV 83.4 fL (80.0-100.0); MEAN PLATELET VOLUME 9.6 fL (7.4-10.4); MONOCYTES 2.5 % (2-11); NEUTROPHILS 91.2 % (40-80); PLATELET COUNT 273 10x3/uL (130-400); RBC 3.38 10x6/uL (4.20-6.10); RDW 15.4 % (11.5-14.5); WBC 9.5 10x3/uL (4.8-10.8)
[2019-05-27 05:26] LABS: CALC OSMOLALITY 294 mosm/kg (275-300); CALCIUM 7.4 mg/dL (8.5-10.1); CARBON DIOXIDE 26.9 mmol/L (21.0-32.0); CHLORIDE - SERUM 110 mmol/L (98-107); CREATININE - SERUM 0.9 mg/dL (0.6-1.3); GLUCOSE 126 mg/dL (74-106); POTASSIUM - SERUM 3.7 mmol/L (3.5-5.1); SODIUM 144 mmol/L (136-145); UREA NITROGEN 29 mg/dL (7-18); eGFR NON AFRICAN AMERICAN 84 mL/min (90-120)
--- NOTE | 2019-05-27 06:16 | NUR ---
REPOSITIONED FOR COMFORT. CHECKED FOR INCONTINENCE. PT IS CLEAN AND DRY. CONFUSED AND YELLING OUT TO PEOPLE NOT PRESENT. AUDITORY AND VISUAL HALLUCINATIONS NOTED. BED ALARM IN USE. CL IN REACH.
[2019-05-27 08:37] VITALS: BP 155/86
--- NOTE | 2019-05-27 10:55 | NUR ---
PT RESTING IN BED WITH EYES OPEN. EXTREMELY CONFUSED SEEING PEOPLE AND ANIMALS IN HIS ROOM THAT ARENT PRESENT. TRYING TO PULL HIS TELEMETRY, IV, BRACELETS, AND SCDS OFF. REORIENTED TO PLACE NUMEROUS TIMES, CURRENTLY THINKS HE IS AT HOME AND ABOUT TO LEAVE FOR [place]. WILL CONT TO MONITOR.
[2019-05-27 12:06] VITALS: BP 130/76
[2019-05-27 17:10] VITALS: BP 137/89
--- NOTE | 2019-05-27 19:48 | NUR ---
RESTING IN BED WITH EYES OPEN, SPEECH IS CLEAR, BUT PLEASANTLY CONFUSED CONVERSATION. SHOWS NO S/S OF ANY ACUTE DISTRESS OR PAIN AT THIS TIME. LAFLEUR CATHETER IS STILL PATENT WITH URINE DRAINING TO CDS. WILL NOTE ANY CHANGE.
[2019-05-27 21:14] VITALS: BP 130/77
--- NOTE | 2019-05-27 21:16 | NUR ---
GRABBING AT ALL TUBING WITHIN REACH IE, OXYGEN, IV, LAFLEUR, ALSO STATING HE IS READY TO GO ON THE ROAD, NOT MAKING SENSIBLE CONVERSATION, HALDOL GIVEN PRN PER ORDERS. WILL NOTE ANY CHANGE.
[2019-05-28 01:44] VITALS: BP 126/80
[2019-05-28 04:38] VITALS: BP 157/72
--- NOTE | 2019-05-28 06:08 | NUR ---
RESTED WELL LATER HALF OF SHIFT, AT THIS TIME, HE IS STARTING TO STIR AND HAVE A NON PRODUCTIVE COUGH, HE SHOWS NO S/S OF ANY ACUTE DISTRESS AND WILL NOTE ANY CHANGE.
--- NOTE | 2019-05-28 06:23 | NUR ---
I have reviewed this patient and I concur with the Shift Assessment completed by the Licensed Practical Nurse today this shift.
[2019-05-28 06:52] LABS: BASOPHILS 0 % (0-2); EOSINOPHILS 0 % (0-7); HEMATOCRIT 27.4 % (42.0-54.0); HEMOGLOBIN 9.2 g/dL (13.5-17.5); IMMATURE GRANULOCYTES 0.6 % (0-5); LYMPHOCYTES 5.3 % (15-50); MCH 27.9 pg (26.0-34.0); MCHC 33.6 g/dL (31.0-37.0); MEAN PLATELET VOLUME 9.2 fL (7.4-10.4); MONOCYTES 4.5 % (2-11); NEUTROPHILS 89.6 % (40-80); PLATELET COUNT 243 10x3/uL (130-400); RDW 15.4 % (11.5-14.5); WBC 8.3 10x3/uL (4.8-10.8)
[2019-05-28 06:58] LABS: CALC OSMOLALITY 285 mosm/kg (275-300); CARBON DIOXIDE 26.4 mmol/L (21.0-32.0); CHLORIDE - SERUM 109 mmol/L (98-107); CREATININE - SERUM 0.9 mg/dL (0.6-1.3); GLUCOSE 119 mg/dL (74-106); POTASSIUM - SERUM 3.7 mmol/L (3.5-5.1); SODIUM 141 mmol/L (136-145); UREA NITROGEN 23 mg/dL (7-18); eGFR NON AFRICAN AMERICAN 84 mL/min (90-120)
[2019-05-28 08:24] VITALS: BP 155/76
--- NOTE | 2019-05-28 10:19 | NUR ---
PATIENT RESTING WITH EYES CLOSED, AROUSES EASILY, BUT LETHARGIC. UNABLE TO TOLERATE AM MEAL AND CRUSHED MEDICAIONS THIS AM.
[2019-05-28 12:19] VITALS: BP 114/60
--- NOTE | 2019-05-28 14:28 | NUR ---
Nutrition follow-up: Pt receiving a heart healthy diet with Ensure BID PO intake 0 x last 6 meals; pt did eat HS snack last night Labs reviewed Pt with wet, nonproductive cough per nurse; passed bedside swallow eval Pt more confused today Meds: Marinol, Solumedrol If medically feasible, may need to place NGT vs PEG tube for nutrition support due to pts severe malnutrition. RDN following.
--- NOTE | 2019-05-28 14:45 | NUR ---
OT NOTE: PT VERY CONFUSED AND UNABLE TO FOLLOW SIMPLE COMMANDS. MAX ASSIST FOR ALL ADLS AND MOBILITY DUE TO CONFUSION. UNABLE TO STAND OR TRANSFER DUE TO CONFUSION. TOTAL ASSIST WITH PERINEAL CARE. DESIRE CHAKRABORTY, OTR/L
--- NOTE | 2019-05-28 15:13 | NUR ---
OT NOTE: PT CONFUSED. NURSING NOTIFIED. PT REQUIRED MAX A FOR BED MOB TASKS SUPINE TO SIT. PT REQUIRED MAX A FOR HYGIENE. PT REQUIRED EXTENSIVE VCS FOR INCREASED SEQUENCING. THANK YOU, SHILOH LUQUE
[2019-05-28 17:03] VITALS: BP 128/84
--- NOTE | 2019-05-28 20:00 | NUR ---
ALERT AND ORIENTED TO NAME. NO ACUTE SIGNS OF DISTRESS NOTED. IV TO THE LT CHEST WITH NO SWELLING OR REDNESS AND LAFLEUR IN PLACE. NO OTHER NEEDS NOTED AT THIS TIME. CONTINUE WITH PLAN OF CARE
[2019-05-28 21:20] VITALS: BP 132/85
[2019-05-29 01:11] VITALS: BP 168/81
[2019-05-29 05:18] VITALS: BP 149/78
[2019-05-29 06:59] LABS: CALC OSMOLALITY 282 mosm/kg (275-300); CARBON DIOXIDE 25.3 mmol/L (21.0-32.0); CHLORIDE - SERUM 108 mmol/L (98-107); CREATININE - SERUM 0.9 mg/dL (0.6-1.3); GLUCOSE 135 mg/dL (74-106); POTASSIUM - SERUM 3.4 mmol/L (3.5-5.1); SODIUM 139 mmol/L (136-145); UREA NITROGEN 21 mg/dL (7-18); eGFR NON AFRICAN AMERICAN 84 mL/min (90-120)
[2019-05-29 07:16] LABS: BASOPHILS 0 % (0-2); EOSINOPHILS 0 % (0-7); HEMATOCRIT 29.8 % (42.0-54.0); HEMOGLOBIN 9.9 g/dL (13.5-17.5); IMMATURE GRANULOCYTES 1.1 % (0-5); MCH 27.6 pg (26.0-34.0); MCHC 33.2 g/dL (31.0-37.0); MEAN PLATELET VOLUME 9.8 fL (7.4-10.4); MONOCYTES 2.7 % (2-11); NEUTROPHILS 92.2 % (40-80); PLATELET COUNT 258 10x3/uL (130-400); RBC 3.59 10x6/uL (4.20-6.10); RDW 15.8 % (11.5-14.5); WBC 9.8 10x3/uL (4.8-10.8)
--- NOTE | 2019-05-29 07:35 | NUR ---
PT CONFUSED, RESTING IN BED. NO C/O PAIN. NO S/S OF ACUTE DISTRESS NOTED. LAFLEUR PRESENT. SCDS PRESENT AND ON. EGG CRATE MATTRESS ON BED. LUNG SOUNDS DIMINISHED RLL, LLL. DRESSING TO LEFT HAND, C/D/I. IV TO LEFT CHEST, LATERAL SIDE, 1/2 NS INFUSING @ 75ML/HR. SITE PATENT WITHOUT REDNESS OR SWELLING. ON TELEMETRY SR 62 WITH BBB. PT DENIES ANY NEEDS AT THIS TIME. CALL LIGHT IN REACH. WILL CONTINUE TO MONITOR.
[2019-05-29 09:22] VITALS: BP 165/78
--- NOTE | 2019-05-29 11:11 | NUR ---
OT NOTE: PT DOING BETTER TODAY. MUCH LESS CONFUSED WITH NO HALLUCINATIONS NOTED TODAY. BED MOB WITH MOD ASSIST; SITTING BALANCE ON EOB WITH SBA; PERFORMED UE/LE AROM EXS TO IMPROVE STRENGTH AND MAINTAIN AROM. SIT TO STAND WITH MIN ASSIST X 2; ABALE TO SIDE STEP X APPROX 5 SMALL STEPS; MODERATE DIFFICULTY WITH WT SHIFTING TO R SIDE. ABLE TO FEED SELF ICE CREAM WITH SET UP; ABLE TO WASH FACE AND HANDS WITH CLOTH AND SET UP. PT ABLE TO ASSIST WITH REPOSITIONING BACK IN BED. DESIRE CHAKRABORTY, OTR/L
--- NOTE | 2019-05-29 12:39 | MORECARE ---
CASE MANAGEMENT DISCHARGE SUMMARY PATIENT: FRANCISCA GRISSOM III UNIT: [id number] ADM DATE: 05/21/19 AGE: 88 : 29 SEX: M ROOM/BED: D.2240 AUTHOR: JOSIANEDOC PHYSICIAN: REFERRING PHYSICIAN: DES KILLIAN MD DATE OF SERVICE: 05/29/19 Discharge Plan Patient Name: FRANCISCA GRISSOM [facility] [facility] 1930 Planned Disposition: SNF w Planned Readmission Anticipated Discharge Date: Discharge Date: Expected LOS: Initial Reviewer: [email or web address] Initial Review Date: 05/24/2019 Generated: 05/29/19 1:38 pm Comments DCP- Discharge Planning Updated by [email or web address]: Julienne Castillo on 05/29/19 11:[address] CM spoke with Jenny at [facility] and messaged Mariaelena that it is anticipated patient to go back to [facility] tomorrow or Monday. Updated clinical faxed. Jenny states he will not need to have anyone sign paper work for admission again, because it has not been 30 days. I will speak with the today (who is hospitalized) to discuss discharge plan. CM will continue to follow and assist with discharge planning/needs. DCP- Discharge Planning Updated by [id number]: Julienne Castillo on 05/24/19 12:[address] Patient Name: FRANCISCA GRISSOM Admission Status: ER Accout number: [id number] Admission Date: 05-21-2019 : 1930 Admission Diagnosis:LOBAR PNEUMONIA, UNSPECIFIED ORGANISM Attending: DES KILLIAN Current LOS: 3 Anticipated DC Date: Planned Disposition: SNF w Planned Readmission Primary Insurance: MEDICARE A & B Discharge Planning Comments: CM met with patient and his "life partner" Ashley Concepcion in the room to discuss discharge planning/needs. He has been at [facility] for skilled therapy prior to coming here. States he was only there for 6 days before readmitting to the hospital. She states that they have been in [facility] before and was not happy with the care there and she would like him to return to [facility]. She states that he needs to get stronger prior to returning home with her. She states she does have people that are going to help her once she is able to take him home and plans on having [facility] after his skilled therapy is completed. I spoke with Rory with [facility] and he states they are following and he spoke with the yesterday and she will call them when ready for Hospice admission. She states "I want to give him a chance first." I called Mariaelena with [facility] and clinical faxed. Mariaelena states she will check on status for readmission. CM will continue to follow and assist with discharge planning/needs. Parking Patroller: Julienne Castillo DCPIA - Discharge Planning Initial Assessment Updated by [email or web address]: Julienne Castillo on 05/24/19 12:57 pm * Is the patient Alert and Oriented? No * How many steps to enter\\exit or inside your home? 0/0 * PCP Dr. Killian * Pharmacy [facility] on [address] * Preadmission Environment Snf Facility * Facility Name [facility] * ADLs Total Dependent * Equipment Walker Wheelchair * List name and contact numbers for known caregivers / representatives who currently or will assist patient after discharge: Ashley Hernandez - life partner - [phone] or [phone] * Verbal permission to speak to the caregivers and representatives has been obtained from the patient. N/A * Community resources currently utilized None * Additional services required to return to the preadmission environment? No * Can the patient safely return to the preadmission environment? Yes * Has this patient been hospitalized within the prior 30 days at any hospital? Yes Coverage Notice Reviewer: [id number] - Julienne Castillo Notice Issued Date-Time: 05/24/2019 12:53 Notice Type: Patient Choice Letter Notice Delivered To: Family Member Relationship to Patient: Life Partner Senior Software Qa Engineer Name: Ashley Hernandez Delivery Method: HAND - Hand Delivered Manjula Days: Prior Verbal Notification: Recipient Understood Notice: Yes Recipient Signature: Yes Med Rec Note Co-signed by Attending: Coverage Notice Comment: RAVINDRA for [facility] Last DP export: 05/24/19 12:15 pm Patient Name: FRANCISCA GRISSOM Page [phone] at 1239 All edits/amendments must be made on the electronic document DICTATION DATE: 05/29/19 1234 SALES ENGAGEMENT MANAGER: DM 05/29/19 1238 RPT#: [id number] DC DATE: STATUS: ADM IN [facility] [address] [place] [address] END OF REPORT
--- NOTE | 2019-05-29 14:02 | MORECARE ---
CASE MANAGEMENT DISCHARGE SUMMARY PATIENT: FRANCISCA GRISSOM III UNIT: [id number] ADM DATE: 05/21/19 AGE: 88 : 29 SEX: M ROOM/BED: D.2240 AUTHOR: JOSIANEDOC PHYSICIAN: REFERRING PHYSICIAN: DES KILLIAN MD DATE OF SERVICE: 05/29/19 Discharge Plan Patient Name: FRANCISCA GRISSOM [facility] [facility] 1930 Planned Disposition: SNF w Planned Readmission Anticipated Discharge Date: Discharge Date: Expected LOS: Initial Reviewer: [email or web address] Initial Review Date: 05/24/2019 Generated: 05/29/19 3:01 pm Comments DCP- Discharge Planning Updated by [email or web address]: Julienne Castillo on 05/29/19 12:[address] CM visited with patient's and I informed her that he may likely be discharged back to [facility] to a skilled therapy bed on or Monday and she agrees with plan. She states to let them know at [facility] that she is in the hospital and will be unable to sign papers if needed at this time. I have informed Mariaelena that she is here and she says no need for paper work at this time. CM will continue to follow and assist with discharge planning/needs. DCP- Discharge Planning Updated by [id number]: Julienne Castillo on 05/29/19 11:[address] CM spoke with Jenny at [facility] and messaged Mariaelena that it is anticipated patient to go back to [facility] tomorrow or Monday. Updated clinical faxed. Jenny states he will not need to have anyone sign paper work for admission again, because it has not been 30 days. I will speak with the today (who is hospitalized) to discuss discharge plan. CM will continue to follow and assist with discharge planning/needs. DCP- Discharge Planning Updated by [email or web address]: Julienne Castillo on 05/24/19 12:[address] Patient Name: FRANCISCA GRISSOM Admission Status: ER Accout number: [id number] Admission Date: 05-21-2019 : 1930 Admission Diagnosis:LOBAR PNEUMONIA, UNSPECIFIED ORGANISM Attending: DES KILLIAN Current LOS: 3 Anticipated DC Date: Planned Disposition: SNF w Planned Readmission Primary Insurance: MEDICARE A & B Discharge Planning Comments: CM met with patient and his "life partner" Ashley Concecpion in the room to discuss discharge planning/needs. He has been at [facility] for skilled therapy prior to coming here. States he was only there for 6 days before readmitting to the hospital. She states that they have been in [facility] before and was not happy with the care there and she would like him to return to [facility]. She states that he needs to get stronger prior to returning home with her. She states she does have people that are going to help her once she is able to take him home and plans on having [facility] after his skilled therapy is completed. I spoke with Rory with [facility] and he states they are following and he spoke with the yesterday and she will call them when ready for Hospice admission. She states "I want to give him a chance first." I called Mariaelena with [facility] and clinical faxed. Mariaelena states she will check on status for readmission. CM will continue to follow and assist with discharge planning/needs. Therapy Tech: Julienne Castillo DCPIA - Discharge Planning Initial Assessment Updated by [email or web address]: Julienne Castillo on 05/24/19 12:57 pm * Is the patient Alert and Oriented? No * How many steps to enter\\exit or inside your home? 0/0 * PCP Dr. Killian * Pharmacy [facility] on [address] * Preadmission Environment [facility] Facility * Facility Name [facility] * ADLs Total Dependent * Equipment Walker Wheelchair * List name and contact numbers for known caregivers / representatives who currently or will assist patient after discharge: Ashley Rodrigezusha - life partner - [phone] or [phone] * Verbal permission to speak to the caregivers and representatives has been obtained from the patient. N/A * Community resources currently utilized None * Additional services required to return to the preadmission environment? No * Can the patient safely return to the preadmission environment? Yes * Has this patient been hospitalized within the prior 30 days at any hospital? Yes Coverage Notice Reviewer: [email or web address] - Julienne Castillo Notice Issued Date-Time: 05/24/2019 12:53 Notice Type: Patient Choice Letter Notice Delivered To: Family Member Relationship to Patient: Life Partner Manager Forensic Name: Ashley Hernandez Delivery Method: HAND - Hand Delivered Manjula Days: Prior Verbal Notification: Recipient Understood Notice: Yes Recipient Signature: Yes Med Rec Note Co-signed by Attending: Coverage Notice Comment: RAVINDRA for [facility] Reviewer: [email or web address] Viktor Castillo Notice Issued Date-Time: 05/29/2019 13:55 Notice Type: IM Discharge Notice Notice Delivered To: Family Member Relationship to Patient: Life Partner Manager Forensic Name: Ashley Hernandez Delivery Method: HAND - Hand Delivered Manjula Days: Prior Verbal Notification: Recipient Understood Notice: Yes Recipient Signature: Yes Med Rec Note Co-signed by Attending: Coverage Notice Comment: IMM explained, signed, given, copy placed in MR Last DP export: 05/29/19 11:39 a Patient Name: FRANCISCA GRISSOM Page [phone] at 1402 All edits/amendments must be made on the electronic document DICTATION DATE: 05/29/191400 PARTS INTERPRETER: ESPERANZA 05/29/19 1401 RPT#: [id number] DC DATE: STATUS: ADM IN [facility] [address] [place] [address] END OF REPORT
[2019-05-29 14:12] VITALS: BP 163/80
[2019-05-29 16:09] VITALS: BP 168/75
--- NOTE | 2019-05-29 19:31 | NUR ---
PT CONFUSED, RESTING IN BED. NO C/O PAIN. NO S/S OF ACUTE DISTRESS NOTED. CALL LIGHT IN REACH. PT DENIES ANY NEEDS.
--- NOTE | 2019-05-29 20:00 | NUR ---
ALERT BUT DISORIENTED TO PLACE, TIME, AND SITUATION. IV TO THE LT CHEST WITH NO SWELLING OR REDNESS. O2 @2L AND LAFLEUR IN PLACE. NO PAIN OR OTHER NEEDS NOTED AT THIS TIME. CONTINUE WITH PLAN OF CARE.
[2019-05-29 20:55] VITALS: BP 131/74
[2019-05-30 00:18] VITALS: BP 127/63
[2019-05-30 05:18] VITALS: BP 116/68
[2019-05-30 06:57] LABS: BASOPHILS 0.1 % (0-2); EOSINOPHILS 0 % (0-7); HEMATOCRIT 33.7 % (42.0-54.0); HEMOGLOBIN 11.1 g/dL (13.5-17.5); IMMATURE GRANULOCYTES 0.7 % (0-5); MCH 27.9 pg (26.0-34.0); MCHC 32.9 g/dL (31.0-37.0); MCV 84.7 fL (80.0-100.0); MEAN PLATELET VOLUME 10.3 fL (7.4-10.4); MONOCYTES 3.6 % (2-11); NEUTROPHILS 91.6 % (40-80); PLATELET COUNT 274 10x3/uL (130-400); RBC 3.98 10x6/uL (4.20-6.10); RDW 16.5 % (11.5-14.5)
[2019-05-30 07:02] LABS: CALC OSMOLALITY 285 mosm/kg (275-300); CALCIUM 7.2 mg/dL (8.5-10.1); CARBON DIOXIDE 20.8 mmol/L (21.0-32.0); CHLORIDE - SERUM 109 mmol/L (98-107); GLUCOSE 130 mg/dL (74-106); SODIUM 140 mmol/L (136-145); UREA NITROGEN 26 mg/dL (7-18); eGFR NON AFRICAN AMERICAN 75 mL/min (90-120)
[2019-05-30 07:03] LABS: WBC 18.7 10x3/uL (4.8-10.8)
[2019-05-30 08:17] VITALS: BP 144/70
--- NOTE | 2019-05-30 10:49 | NUR ---
PT ALERT AND CONFUSED, A/O X1. NO C/O PAIN. NO S/S OF ACUTE DISTRESS NOTED. ON 2L O2, NC. LUNG SOUNDS DIMINISHED IN RLL AND LLL. ON EGG CRATE MATTRESS. EMILY ALARM ON. DRESSING TO BUTTOCKS, C/D/I. IV TO LEFT CHEST, 1/2 NS INFUSING @ 75ML/HR. SITE PATENT WITHOUT REDNESS OR SWELLING. CRUSH MEDS WITH APPLESAUCE. ON TELEMETRY SR 73 WITH PAC'S AND OCCASIONAL PVC'S, AND BBB. PT DENIES ANY NEEDS AT THIS TIME. CALL LIGHT IN REACH. WILL CONTINUE TO MONITOR.
[2019-05-30 12:49] VITALS: BP 119/62
--- NOTE | 2019-05-30 15:25 | NUR ---
OT NOTE: PT COMPLETED BED MOB TASKS WITH MAX A SECONDARY TO CONFUSION. PT COMPLETED GROOMING TASKS WITH MIN-MOD A . THANK YOU, SHILOH LUQUE
--- NOTE | 2019-05-30 16:18 | NUR ---
OT NOTE: PT ALERT BUT VERY CONFUSED. PT HAD LARGE BM IN BED AND WAS ATTEMPTING TO GET UP OUT OF BED. MAX ASSIST WITH BED MOB INCLUDING SUPINE TO SIT. MAX ASSIST TO TRANSFER TO BS COMMODE. TOTAL ASSIST WITH TOILET HYGIENE. MIN ASSIST TO WASH FACE, HANDS, CHEST , AND ARMS WITH WASH CLOTH. MAX ASSIST TO GAYE GOWN. SIT TO STAND AND STANDING WITH WALKER WITH MOD ASSIST X 2. DID NOT PERFORM WELL WITH THIS YESTERDAY. MAX ASSIST BACK TO BED AND FOR POSITIONING. DESIRE CHAKRABORTY, OTR/L
[2019-05-30 16:27] VITALS: BP 122/58
[2019-05-30 20:00] VITALS: BP 126/79
--- NOTE | 2019-05-30 20:03 | NUR ---
I have reviewed this patient and I concur with the Shift Assessment completed by the Licensed Practical Nurse today this shift.
--- NOTE | 2019-05-30 21:53 | NUR ---
PT AGITATED AND HALLUCINATING. TRYING TO CLIMB OUT OF BED. GAVE HALDOL 1 MG PO AND SCHEDULED MEDS. ASSESSMENT COMPLETE PER FLOW-SHEET. NO OTHER NEEDS. WILL CONTINUE TO MONITOR.
[2019-05-31 04:00] VITALS: BP 152/75
[2019-05-31 07:25] LABS: BASOPHILS 0.1 % (0-2); EOSINOPHILS 0 % (0-7); HEMATOCRIT 27.3 % (42.0-54.0); HEMOGLOBIN 8.9 g/dL (13.5-17.5); IMMATURE GRANULOCYTES 0.9 % (0-5); LYMPHOCYTES 4.3 % (15-50); MCH 27.8 pg (26.0-34.0); MCHC 32.6 g/dL (31.0-37.0); MCV 85.3 fL (80.0-100.0); MONOCYTES 4.7 % (2-11); PLATELET COUNT 242 10x3/uL (130-400); RDW 17.2 % (11.5-14.5); WBC 14.1 10x3/uL (4.8-10.8)
--- NOTE | 2019-05-31 07:35 | NUR ---
PT RESTING IN BED, EYES CLOSED. RESPIRATIONS EVEN AND UNLABORED. NO S/S OF ACUTE DISTRESS NOTED. BED ALARM ON. SCDS ON. LAFLEUR PRESENT. PT DENIES ANY NEEDS AT THIS TIME. CALL LIGHT IN REACH. WILL CONTINUE TO MONITOR.
[2019-05-31 07:41] LABS: CALC OSMOLALITY 293 mosm/kg (275-300); CARBON DIOXIDE 20.8 mmol/L (21.0-32.0); CHLORIDE - SERUM 111 mmol/L (98-107); GLUCOSE 123 mg/dL (74-106); POTASSIUM - SERUM 3.8 mmol/L (3.5-5.1); SODIUM 144 mmol/L (136-145); UREA NITROGEN 29 mg/dL (7-18); eGFR NON AFRICAN AMERICAN 75 mL/min (90-120)
[2019-05-31] MEDS ORDERED: HALOPERIDOL1 MG PO (07:43)
[2019-05-31] MEDS ORDERED: THERMOTABS 1 GM1 GM PO (07:43)
[2019-05-31] MEDS ORDERED: IPRAT-ALBUT 0.5-3 ML UPD (07:45)
[2019-05-31] MEDS ORDERED: MEDROL DOSE PACK4 MG PO (07:46)
[2019-05-31 07:55] VITALS: BP 129/68
[2019-05-31 08:07] LABS: CALCIUM 6.9 mg/dL (8.5-10.1)
--- NOTE | 2019-05-31 08:40 | MORECARE ---
CASE MANAGEMENT DISCHARGE SUMMARY PATIENT: FRANCISCA GRISSOM [facility] UNIT: [id number] ADM DATE: 05/21/19 AGE: 88 : 28 SEX: M ROOM/BED: D.2240 AUTHOR: JOSIANE,DOC PHYSICIAN: REFERRING PHYSICIAN: DES KILLIAN MD DATE OF SERVICE: 05/31/19 Discharge Plan Patient Name: FRANCISCA GRISSOM [facility] [facility] 1930 Planned Disposition: SNF w Planned Readmission Anticipated Discharge Date: Discharge Date: Expected LOS: Initial Reviewer: [email or web address] Initial Review Date: 05/24/2019 Generated: 05/31/19 9:40 am Comments DCP- Discharge Planning Updated by [email or web address]: Julienne Castillo on 05/31/19 7:[address] DC order received. I called Jenny at [facility] and she will call back with a pickling operator time, she was informed to have oxygen at [address] [place] [address]. I informed her Dr. Killian states that he is a DNR and he was not to return to the hospital. His goal is to get as strong as possible prior to returning home on hospice. Patient's life partner remains in the hospital. I gave the numbers she gave me for contacts. 1)her numbers [phone] and [phone]. 2)Jeane [phone] and [phone] and 3) Rita [phone]. Nurse gave number to call report [phone]. He will go to a skilled bed via their van with a stephen chair. DCP- Discharge Planning Updated by [email or web address]: Julienne Castillo on 05/29/19 12:[address] CM visited with patient's and I informed her that he may likely be discharged back to [facility] to a skilled therapy bed on or Monday and she agrees with plan. She states to let them know at [facility] that she is in the hospital and will be unable to sign papers if needed at this time. I have informed Mariaelena that she is here and she says no need for paper work at this time. CM will continue to follow and assist with discharge planning/needs. DCP- Discharge Planning Updated by [id number]: Julienne Castillo on 05/29/19 11:[address] CM spoke with Jenny at [facility] and messaged Mariaelena that it is anticipated patient to go back to [facility] tomorrow or Monday. Updated clinical faxed. Jenny states he will not need to have anyone sign paper work for admission again, because it has not been 30 days. I will speak with the today (who is hospitalized) to discuss discharge plan. CM will continue to follow and assist with discharge planning/needs. DCP- Discharge Planning Updated by [email or web address]: Julienne Castillo on 05/24/19 12:[address] Patient Name: FRANCISCA GRISSOM Admission Status: ER Accout number: [id number] Admission Date: 05-21-2019 : 1930 Admission Diagnosis:LOBAR PNEUMONIA, UNSPECIFIED ORGANISM Attending: DES KILLIAN Current LOS: 3 Anticipated DC Date: Planned Disposition: SNF w Planned Readmission Primary Insurance: MEDICARE A & B Discharge Planning Comments: CM met with patient and his "life partner" Ashley Concepcion in the room to discuss discharge planning/needs. He has been at [facility] for skilled therapy prior to coming here. States he was only there for 6 days before readmitting to the hospital. She states that they have been in [place] [facility] before and was not happy with the care there and she would like him to return to [facility]. She states that he needs to get stronger prior to returning home with her. She states she does have people that are going to help her once she is able to take him home and plans on having [facility] after his skilled therapy is completed. I spoke with Rory with [facility] and he states they are following and he spoke with the yesterday and she will call them when ready for Hospice admission. She states "I want to give him a chance first." I called Mariaelena with [facility] and clinical faxed. Mariaelena states she will check on status for readmission. CM will continue to follow and assist with discharge planning/needs. Harmonic Analyst: Julienne Castillo DCPIA - Discharge Planning Initial Assessment Updated by [id number]: Julienne Castillo on 05/24/19 12:57 pm * Is the patient Alert and Oriented? No * How many steps to enter\\exit or inside your home? 0/0 * PCP Dr. Killian * Pharmacy [facility] on [address] * Preadmission Environment [facility] * Facility Name [facility] * ADLs Total Dependent * Equipment Walker Wheelchair * List name and contact numbers for known caregivers / representatives who currently or will assist patient after discharge: Ashley Hernandez - life partner - [phone] or [phone] * Verbal permission to speak to the caregivers and representatives has been obtained from the patient. N/A * Community resources currently utilized None * Additional services required to return to the preadmission environment? No * Can the patient safely return to the preadmission environment? Yes * Has this patient been hospitalized within the prior 30 days at any hospital? Yes Coverage Notice Reviewer: [email or web address] Castillo Notice Issued Date-Time: 05/24/2019 12:53 Notice Type: Patient Choice Letter Notice Delivered To: Family Member Relationship to Patient: Life Partner Transportation Job Titles Name: Ashley Hernandez Delivery Method: HAND - Hand Delivered Manjula Days: Prior Verbal Notification: Recipient Understood Notice: Yes Recipient Signature: Yes Med Rec Note Co-signed by Attending: Coverage Notice Comment: [email or web address] for [facility] Reviewer: [id number] Viktor Castillo Notice Issued Date-Time: 05/29/2019 13:55 Notice Type: IM Discharge Notice Notice Delivered To: Family Member Relationship to Patient: Life Partner Transportation Job Titles Name: Ashley Hernandez Delivery Method: HAND - Hand Delivered Manjula Days: Prior Verbal Notification: Recipient Understood Notice: Yes Recipient Signature: Yes Med Rec Note Co-signed by Attending: Coverage Notice Comment: IMM explained, signed, given, copy placed in MR Last DP export: 05/29/19 1:02 p Patient Name: FRANCISCA GRISSOM Page [id number] at 0840 All edits/amendments must be made on the electronic document DICTATION DATE: 05/31/19839 CHIEF RESERVOIR ENGINEERING: ESPERANZA 05/31/19839 RPT#: [id number] DC DATE: STATUS: ADM IN [facility] [address] [place] [address] END OF REPORT
--- NOTE | 2019-05-31 10:07 | NUR ---
[facility]. DISCONTINUED IV, CATHETER TIP INTACT. SENT DISCHARGE PAPERS WITH [place] STAFF. PT CONFUSED AND UNABLE TO SIGN DISCHARGE PAPERS. DISCONTINUED LAFLEUR, TRIED TO REINSERT ANOTHER LAFLEUR AND UNABLE TO DO SO. MET RESISTANCE WHEN INSERTING CATHETER, STOPPED AND GOT KVNG HEARD, RN TO TRY. UNSBLE TO INSERT LAFLEUR CATHETER. CALLED REPORT TO MICHAEL AT [facility], EXPLAINED TO NURSE THAT THIS NURSE WAS UNABLE TO INSERT LAFLEUR CATHETER.
--- NOTE | 2019-05-31 16:56 | MORECARE ---
CASE MANAGEMENT DISCHARGE SUMMARY PATIENT: FRANCISCA GRISSOM [facility] UNIT: [id number] ADM DATE: 05/21/19 AGE: 88 : 28 SEX: M ROOM/BED: D.2240 AUTHOR: ARSENIO JOSHUA PHYSICIAN: REFERRING PHYSICIAN: DES KILLIAN MD DATE OF SERVICE: 05/31/19 Discharge Plan Patient Name: FRANCISCA GRISSOM [facility] [facility] 1930 Planned Disposition: SNF w Planned Readmission Anticipated Discharge Date: Discharge Date: 05/31/2019 Expected LOS: 0 Initial Reviewer: [email or web address] Initial Review Date: 05/24/2019 Generated: 05/31/19 5:55 pm Comments DCP- Discharge Planning Updated by [email or web address]: Julienne Castillo on 05/31/19 7:[address] DC order received. I called Jenny at [facility] and she will call back with a picking machine operator helper time, she was informed to have oxygen at [address] [place] [address]. I [address] her Dr. Killian states that he is a DNR and he was not to return to the hospital. His goal is to get as strong as possible prior to returning home on hospice. Patient's life partner remains in the hospital. I gave the numbers she gave me for contacts. 1)her numbers [phone] and [phone]. 2)Jeane [phone] and [phone] and 3) Rita [phone]. Nurse gave number to call report [phone]. He will go to a skilled bed via their van with a stephen chair. DCP- Discharge Planning Updated by [email or web address]: Julienne Castillo on 05/29/19 12:[address] CM visited with patient's and I informed her that he may likely be discharged back to [facility] to a skilled therapy bed on or Monday and she agrees with plan. She states to let them know at [facility] that she is in the hospital and will be unable to sign papers if needed at this time. I have informed Mariaelena that she is here and she says no need for paper work at this time. CM will continue to follow and assist with discharge planning/needs. DCP- Discharge Planning Updated by [id number]: Julienne Castillo on 05/29/19 11:[address] CM spoke with Jenny at [facility] and messaged Mariaelena that it is anticipated patient to go back to [facility] tomorrow or Monday. Updated clinical faxed. Jenny states he will not need to have anyone sign paper work for admission again, because it has not been 30 days. I will speak with the today (who is hospitalized) to discuss discharge plan. CM will continue to follow and assist with discharge planning/needs. DCP- Discharge Planning Updated by [id number]: Julienne Castillo on 05/24/19 12:[address] Patient Name: FRANCISCA GRISSOM Admission Status: ER Accout number: [id number] Admission Date: 05-21-2019 : 1930 Admission Diagnosis:LOBAR PNEUMONIA, UNSPECIFIED ORGANISM Attending: DES KILLIAN Current LOS: 3 Anticipated DC Date: Planned Disposition: SNF w Planned Readmission Primary Insurance: MEDICARE A & B Discharge Planning Comments: CM met with patient and his "life partner" Ashley Concepcion in the room to discuss discharge planning/needs. He has been at [facility] for skilled therapy prior to coming here. States he was only there for 6 days before readmitting to the hospital. She states that they have been in [facility] before and was not happy with the care there and she would like him to return to [facility]. She states that he needs to get stronger prior to returning home with her. She states she does have people that are going to help her once she is able to take him home and plans on having [facility] after his skilled therapy is completed. I spoke with Rory with [facility] and he states they are following and he spoke with the yesterday and she will call them when ready for Hospice admission. She states "I want to give him a chance first." I called Mariaelena with [facility] and clinical faxed. Mariaelena states she will check on status for readmission. CM will continue to follow and assist with discharge planning/needs. Clinical Administrator: Julienne Castillo DCPIA - Discharge Planning Initial Assessment Updated by [email or web address]: Julienne Castillo on 05/24/19 12:57 pm * Is the patient Alert and Oriented? No * How many steps to enter\\exit or inside your home? 0/0 * PCP Dr. Killian * Pharmacy [facility] on [address] * Preadmission Environment [facility] * Facility Name [facility] * ADLs Total Dependent * Equipment Walker Wheelchair * List name and contact numbers for known caregivers / representatives who currently or will assist patient after discharge: Ashley Hernandez - life partner - [phone] or [phone] * Verbal permission to speak to the caregivers and representatives has been obtained from the patient. N/A * Community resources currently utilized None * Additional services required to return to the preadmission environment? No * Can the patient safely return to the preadmission environment? Yes * Has this patient been hospitalized within the prior 30 days at any hospital? Yes Coverage Notice Reviewer: [id number] Castillo Notice Issued Date-Time: 05/24/2019 12:53 Notice Type: Patient Choice Letter Notice Delivered To: Family Member Relationship to Patient: Life Partner Student Affairs Vice President Name: Ashley Hernandez Delivery Method: HAND - Hand Delivered Manjula Days: Prior Verbal Notification: Recipient Understood Notice: Yes Recipient Signature: Yes Med Rec Note Co-signed by Attending: Coverage Notice Comment: RAVINDRA for [facility] Reviewer: [id number] Viktor Castillo Notice Issued Date-Time: 05/29/2019 13:55 Notice Type: IM Discharge Notice Notice Delivered To: Family Member Relationship to Patient: Life Partner Student Affairs Vice President Name: Ashley Hernandez Delivery Method: HAND - Hand Delivered Manjula Days: Prior Verbal Notification: Recipient Understood Notice: Yes Recipient Signature: Yes Med Rec Note Co-signed by Attending: Coverage Notice Comment: IMM explained, signed, given, copy placed in MR Last DP export: 05/31/19 7:40 a Patient Name: FRANCISCA GRISSOM Page [id number] at 1656 All edits/amendments must be made on the electronic document DICTATION DATE: 05/31/191654 ENFORCEMENT MANAGER: ESPERANZA 05/31/191654 RPT#: [id number] DC DATE:05/31/19 STATUS: DIS IN [facility] [address] [place] [address] END OF REPORT
== END 2019-05-31 10:11 | DRG 193 ==
LOC: D.ER 11:05 → D.MS 13:43
PROVIDERS: Family Medicine; ADMIT Family Medicine; ATTEND Family Medicine
DX: J18.1 Lobar pneumonia, unspecified organism (principal); E43 Unspecified severe protein-calorie malnutrition; G93.41 Metabolic encephalopathy; R53.1 Weakness; R62.7 Adult failure to thrive; R41.82 Altered mental status, unspecified; Z68.21 Body mass index [BMI] 21.0-21.9, adult; I10 Essential (primary) hypertension; E78.5 Hyperlipidemia, unspecified; J45.909 Unspecified asthma, uncomplicated